=== PATIENT | male | born 1985 | race Caucasian/White ===

== ENCOUNTER 2017-02-22 12:55 | Emergency (ER) | payer SELFPAY ==
[2017-02-22 13:41] VITALS: BP 160/82
[2017-02-22] MEDS ORDERED: Ibuprofen TAB* 600 MG PO ONE (14:08)
--- NOTE | 2017-02-22 14:15 | UC ---
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 c/ o numbness in the toes. - History of Current Complaint Chief Complaint: UCLowerExtremity Stated Complaint: ANKLE INJURY Time Seen by Provider: 02/22/17 14:04 Hx Obtained From: Patient Onset/Duration: Sudden Onset, Lasting Hours Severity Initially: Severe Severity Currently: Severe Aggravating Factor(s): Standing, Ambulation Alleviating Factor(s): Nothing Able to Bear Weight: No - Risk Factors Gout Risk Factors: Hypertension, Obesity - Allergies/Home Medications Allergies/Adverse Reactions: Allergies Allergy/AdvReac Type Severity Reaction Status Date / Time Amoxicillin Allergy Mild Rash Verified 01/15/15 09:50 Penicillin V Allergy Mild Rash Verified 01/15/15 09:50 [From Penicillin VK Potassium] PMH/Surg Hx/FS Hx/Imm Hx Previously Healthy: Yes - Surgical History Surgical History: None - Family History Known Family History: Negative: Cardiac Disease, Hypertension - Social History Alcohol Use: Occasionally Substance Use Type: None Smoking Status (MU): Light Every Day Tobacco Smoker Type: Cigarettes Review of Systems Constitutional: Negative Skin: Negative Eyes: Negative ENT: Negative Respiratory: Negative Cardiovascular: Negative Gastrointestinal: Negative Genitourinary: Negative Motor: Negative Neurovascular: Negative Musculoskeletal: Arthralgia, Decreased ROM, Edema, Myalgia Neurological: Negative Psychological: Negative All Other Systems Reviewed And Are Negative: Yes Physical Exam Triage Information Reviewed: Yes Appearance: Ill-Appearing, Pain Distress, Obese Vital Signs: Initial Vital Signs Temp 97.8 F 02/22/17 13:36 Pulse 90 02/22/17 13:36 Resp 17 02/22/17 13:36 BP 160/82 02/22/17 13:36 Pulse Ox 100 02/22/17 13:36 Vital Signs Reviewed: Yes Eye Exam: Normal ENT Exam: Normal Dental Exam: Normal Neck exam: Normal Respiratory Exam: Normal Cardiovascular Exam: Normal Abdominal Exam: Normal Bowel Sounds: Positive: Present Musculoskeletal: Positive: Strength Limited @ - unable to bear weight, ROM Limited @ - in all directions, Edema @ - over the lateral and anterior aspect of the right foot Neurological Exam: Normal Psychological Exam: Normal Lower Extremity Course/Dx - Course Course Of Treatment: hx obtained, exam performed, meds reviewed, xray obtained, ibuprofen given. kyung, gel splint and crutches supplied, edcuated on RICe and referral to ortho given for follow up as needed. - Differential Dx/Diagnosis Differential Diagnosis/HQI/PQRI: Dislocation, Fracture (Closed), Sprain, Strain Provider Diagnoses: right lateral ankle sprain Discharge - Discharge Plan Condition: Stable Disposition: HOME Patient Education Materials: Ankle Sprain (ED) Additional Instructions: 1. rest, compress and elevate the leg, continue with Ibuprofen and use the crutches to work back into weight bearing. 2. I am giving a referral to merchandising specialist if you are not improving throughout the week, follow up with the specialist
--- NOTE | 2017-02-22 14:30 | RAD ---
HISTORY: Right ankle injury COMPARISONS: None VIEWS: 3, Frontal, lateral, and oblique views of the right ankle FINDINGS: BONE DENSITY: Normal. BONES: There is no displaced fracture. There is a calcaneal enthesophyte. JOINTS: There is no arthropathy. ALIGNMENT: There is no dislocation. SOFT TISSUES: There is circumferential soft tissue swelling OTHER FINDINGS: None. IMPRESSION: SOFT TISSUE SWELLING. NO ACUTE OSSEOUS INJURY. IF SYMPTOMS PERSIST, RECOMMEND REPEAT IMAGING.
== END 2017-02-22 15:13 | disposition home or self-care (01) ==
LOC: UCEAST 12:55
DX: S93.401A Sprain of unspecified ligament of right ankle, initial encounter (principal); V78.4XXA Person boarding or alighting from bus injured in noncollision transport accident, initial encounter; Y92.410 Unspecified street and highway as the place of occurrence of the external cause; Y99.9 Unspecified external cause status; Z72.0 Tobacco use; E66.9 Obesity, unspecified; I10 Essential (primary) hypertension
CPT/HCPCS: 99213; A9270-GY; G0463

== ENCOUNTER 2017-04-13 16:47 | Emergency (ER) | payer SELFPAY ==
[2017-04-13 16:57] VITALS: BP 157/95
--- NOTE | 2017-04-13 17:15 | UC ---
Lower Extremity/Ankle HPI - HPI Summary HPI Summary: PT presents to the ED with persistent left ankle pain. Pt states pain started 02/22 when he had an rolled inversion injury at work. Pt states was treated at , neg xray, given kyung, gel splint and crutches. Pt states after 5-6 days pain improved. Pt states over past 4 week pain and swelling has increased. Pt states pain is primarily on lateral aspect, some medial. No calf, knee or foot pain. Pt has taken APAP with little improvement. Pt intermittently uses kyung wrap but not crutches or gel splint. no re-injury. Pt has not seen anyone in follow-up. Pt here because of continues pain and swelling Pt's medication reviewed this visit - History of Current Complaint Chief Complaint: UCLowerExtremity Stated Complaint: ANKLE INJURY Time Seen by Provider: 04/13/17 16:54 Hx Obtained From: Patient Onset/Duration: Gradual Onset Severity Initially: Moderate Severity Currently: Mild Pain Intensity: 4 Aggravating Factor(s): Standing, Ambulation Alleviating Factor(s): Rest Able to Bear Weight: Yes Related History: Occupational Injury - Allergies/Home Medications Allergies/Adverse Reactions: Allergies Allergy/AdvReac Type Severity Reaction Status Date / Time Amoxicillin Allergy Mild Rash Verified 04/13/17 16:51 Penicillin V Allergy Mild Rash Verified 04/13/17 16:51 [From Penicillin VK Potassium] Home Medications: Home Medications Acetaminophen [Tylenol] 1,250 mg PO 04/13/17 [History] PMH/Surg Hx/FS Hx/Imm Hx Previously Healthy: Yes - Surgical History Surgical History: None - Family History Known Family History: Positive: Diabetes Negative: Cardiac Disease, Hypertension - Social History Occupation: Employed Full-time Lives: With Family Alcohol Use: Occasionally Substance Use Type: None Smoking Status (MU): Light Every Day Tobacco Smoker Type: Cigarettes Review of Systems Constitutional: Negative Skin: Negative Eyes: Negative ENT: Negative Respiratory: Negative Cardiovascular: Negative Gastrointestinal: Negative Genitourinary: Negative Motor: Other - right ankle pain and swelling Neurovascular: Negative Musculoskeletal: Edema Neurological: Negative Psychological: Negative All Other Systems Reviewed And Are Negative: Yes Physical Exam Triage Information Reviewed: Yes Appearance: Well-Appearing, No Pain Distress, Well-Nourished Vital Signs: Initial Vital Signs Temp 99.3 F 04/13/17 16:51 Pulse 83 04/13/17 16:51 Resp 16 04/13/17 16:51 BP 157/95 04/13/17 16:51 Pulse Ox 98 04/13/17 16:51 Vital Signs Reviewed: Yes Eye Exam: Normal ENT: Positive: Hearing grossly normal Neck exam: Normal Neck: Positive: Supple, Nontender, No Lymphadenopathy Respiratory: Positive: Normal breath sounds, No respiratory distress, No accessory muscle use Cardiovascular: Positive: Brisk Capillary Refill, Other: - 2+ PT, DP CBt < 2 sec Musculoskeletal: Positive: Other: - + flex/ext knee + flex/ext ankle + inversion with discomfort along lateral malleolus minimal discofomfort medial malleolus Neurological: Positive: Other: - + gross sensation throughout ankle Psychological Exam: Normal Skin Exam: Normal - no ecchymosis Diagnostics - Radiology No standard instances Xray Interpretation: Positive (See Comments) - Patient Name: CARLOS ZHANG Medical Record#: [id number] 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 3 views of the right ankle demonstrate soft tissue swelling laterally. Ankle mortise is intact. No fracture is noted. IMPRESSION: Soft tissue swelling laterally without evidence of fracture. <Electronically signed by Isha Singh MD in OV> 04/13/17 1726 Radiology Interpretation Completed By: Radiologist Lower Extremity Course/Dx - Course Course Of Treatment: Pt with persistent pain in ankle following inversion injury 02/22 at work. Pt with mild edema and TTP lateral malleoulus. will image. if neg. kyung, air splint. ice. elevate. motrin/apap. Pt has crutches but declining use. ortho referral. Pt and spouse comfortable and in agreement with plan. Pt's BP noted to be elevated at today's visit - advised f/ u with PCP - Differential Dx/Diagnosis Provider Diagnoses: right ankle sprain Discharge - Discharge Plan Condition: Stable Disposition: HOME Patient Education Materials: Ankle Sprain (ED) Forms: *Work Release Referrals: Barb Banuelos MD [Primary Care Provider] - Ayo Munoz MD [Medical Doctor] - Additional Instructions: - Wear kyung wrap, air splint for comfort and support - use crutches as much as possible - Okay to alternate ibuprofen (advil, motrin) and tylenol every 3hours for pain. Do NOT take for more than 4-5 days - Contact the orthopedic provider to schedule a follow-up appointment - Apply ice (wrapped in a towel) 20 minutes at a time, 2-3 times a casimiro - elevate your leg to help with swelling and pain
--- NOTE | 2017-04-13 17:29 | RAD ---
Indication: Right ankle pain. 3 views of the right ankle demonstrate soft tissue swelling laterally. Ankle mortise is intact. No fracture is noted. IMPRESSION: Soft tissue swelling laterally without evidence of fracture.
== END 2017-04-13 17:45 | disposition home or self-care (01) ==
LOC: UCEAST 16:47
DX: X58.XXXA Exposure to other specified factors, initial encounter (principal); S93.401A Sprain of unspecified ligament of right ankle, initial encounter; Z88.3 Allergy status to other anti-infective agents; Z88.0 Allergy status to penicillin; F17.210 Nicotine dependence, cigarettes, uncomplicated
CPT/HCPCS: 99213; G0463

== ENCOUNTER 2017-07-16 12:05 | Emergency (ER) | payer OTHER ==
[2017-07-16 13:12] VITALS: BP 140/80
--- NOTE | 2017-07-16 13:44 | UC ---
Back Pain HPI - HPI Summary HPI Summary: mid back pain after coughing alot patient feels like back is in spasm---pain is waxing and waning and makes his back feel stiff and limitis ROM at it worse - History of Current Complaint Chief Complaint: UCBackPain Stated Complaint: MID BACK PAIN Time Seen by Provider: 07/16/17 13:37 Hx Obtained From: Patient Onset/Duration: Sudden Onset, Lasting Days - 2, Still Present Timing: Constant Severity Initially: Moderate Severity Currently: Moderate Pain Intensity: 8 Pain Scale Used: 0-10 Numeric Back Pain: Is Discrete @ - thoracolumbar region bilaterally Character: Spasmodic, Stiffness Aggravating Factor(s): Movement, Cough Alleviating Factor(s): Other - no much relief with heat or nsaids Associated Signs And Symptoms: Positive: Negative - Allergies/Home Medications Allergies/Adverse Reactions: Allergies Allergy/AdvReac Type Severity Reaction Status Date / Time Amoxicillin Allergy Mild Rash Verified 07/16/17 12:09 Penicillin V Allergy Mild Rash Verified 07/16/17 12:09 [From Penicillin VK Potassium] PMH/Surg Hx/FS Hx/Imm Hx Previously Healthy: Yes - Surgical History Surgical History: None - Family History Known Family History: Positive: Diabetes Negative: Cardiac Disease, Hypertension - Social History Occupation: Employed Full-time Lives: With Family Alcohol Use: Occasionally Substance Use Type: None Smoking Status (MU): Light Every Day Tobacco Smoker Type: Cigarettes Review of Systems Constitutional: Negative Skin: Negative Eyes: Negative ENT: Negative Respiratory: Negative Cardiovascular: Negative Gastrointestinal: Negative Genitourinary: Negative Motor: Negative - spine, Decreased ROM Neurovascular: Negative Musculoskeletal: Arthralgia - midback, Myalgia - bilateral mid back Neurological: Negative Psychological: Negative Is Patient Immunocompromised?: No All Other Systems Reviewed And Are Negative: Yes Physical Exam Triage Information Reviewed: Yes Appearance: Well-Appearing, No Pain Distress, Well-Nourished Vital Signs: Initial Vital Signs Temp 98 F 07/16/17 12:10 Pulse 78 07/16/17 12:10 Resp 20 07/16/17 12:10 Pulse Ox 100 07/16/17 12:10 Vital Signs Reviewed: Yes Eye Exam: Normal Eyes: Positive: Conjunctiva Clear ENT Exam: Normal ENT: Positive: Normal ENT inspection, Hearing grossly normal, Pharynx normal, TMs normal. Negative: Nasal congestion, Muffled voice, Hoarse voice, Sinus tenderness Dental Exam: Normal Neck exam: Normal Neck: Positive: Supple, Nontender Respiratory Exam: Normal Respiratory: Positive: Chest non-tender, Lungs clear, Normal breath sounds, No respiratory distress, No accessory muscle use Cardiovascular Exam: Normal Cardiovascular: Positive: RRR, No Murmur, Pulses Normal, Brisk Capillary Refill Abdomen Description: Negative: CVA Tenderness (R), CVA Tenderness (L) Bowel Sounds: Positive: Present Musculoskeletal Exam: Normal Musculoskeletal: Positive: Strength Intact, ROM Intact, No Edema Neurological Exam: Normal Neurological: Positive: Alert, Muscle Tone Normal Psychological Exam: Normal Skin Exam: Normal Back Pain Course/Dx - Course Course Of Treatment: Flexeril, ibuprofen, nas exercise, follow with pcp - Differential Dx/Diagnosis Provider Diagnoses: Acute lumbar spasm, elevated blood pressure with out dx of hypertension Discharge - Discharge Plan Condition: Stable Disposition: HOME Prescriptions: Cyclobenzaprine TAB* [Flexeril 10 MG TAB*] 10 mg PO TID PRN #15 tab PRN Reason: muscle spasm Ibuprofen TAB* [Motrin TAB* 800 MG] 800 mg PO TID PRN #30 tab PRN Reason: Pain Patient Education Materials: Low Back Strain (ED), Hypertension (ED), Muscle Spasm (ED), Core Strengthening Exercises (GEN), Lower Back Exercises (ED) Referrals: Barb Banuelos MD [Primary Care Provider] - 1 Week
== END 2017-07-16 13:56 | disposition home or self-care (01) ==
LOC: UCEAST 12:05
DX: M62.830 Muscle spasm of back (principal); R03.0 Elevated blood-pressure reading, without diagnosis of hypertension; Z72.0 Tobacco use
CPT/HCPCS: 99212; G0463

== ENCOUNTER 2017-12-08 11:54 | Emergency (ER) | payer OTHER ==
[2017-12-08 13:49] VITALS: BP 150/99
--- NOTE | 2017-12-08 13:54 | UC ---
Skin Complaint HPI - HPI Summary HPI Summary: Pt presents with redness and "pimple" to right inner thigh. He tells me that it started about 4 days ago and looked like a pimple. Over the next 2 days it became larger and more painful. He poked it with a "sharp metal stick" at home and drained it. Here today because it looks infected. Denies fever or chills. - History of Current Complaint Chief Complaint: UCSkin Time Seen by Provider: 12/08/17 13:54 Stated Complaint: SKIN ISSUE Hx Obtained From: Patient Skin Exposure Onset/Duration: Days Ago Timing: Constant Onset Severity: Severe Current Severity: Moderate Pain Intensity: 5 Pain Scale Used: 0-10 Numeric - Allergy/Home Medications Allergies/Adverse Reactions: Allergies Allergy/AdvReac Type Severity Reaction Status Date / Time amoxicillin Allergy Rash Verified 12/08/17 13:42 Penicillins Allergy Rash Verified 12/08/17 13:42 Review of Systems Constitutional: Negative Skin: Other - Wound right inner thigh Respiratory: Negative Cardiovascular: Negative Gastrointestinal: Negative Neurovascular: Negative Musculoskeletal: Negative Neurological: Negative Psychological: Negative All Other Systems Reviewed And Are Negative: Yes PMH/Surg Hx/FS Hx/Imm Hx - Additional Past Medical History Additional PMH: None Previously Healthy: Yes - Surgical History Surgical History: None - Family History Known Family History: Positive: Diabetes Negative: Cardiac Disease, Hypertension - Social History Occupation: Employed Full-time Lives: With Family Alcohol Use: Occasionally Substance Use Type: None Smoking Status (MU): Light Every Day Tobacco Smoker Type: Cigarettes Amount Used/How Often: 10-12 cig/ days Physical Exam - Summary Physical Exam Summary: GENERAL: NAD. WDWN. No pain distress. SKIN: 2.0cm diameter open sore of right inner thigh. No current drainage. Mild surrounding erythema and induration. No streaking or warmth. NECK: Supple. Nontender. No lymphadenopathy. CHEST: CTAB. No r/r/w. No accessory muscle use. Breathing comfortably and in no distress. CV: RRR. Without m/r/g. Pulses intact. Brisk cap refill. NEURO: Alert. CN II-XII grossly intact. PSYCH: Age appropriate behavior. Triage Information Reviewed: Yes Vital Signs: Initial Vital Signs Temp 98.1 F 12/08/17 13:42 Pulse 85 12/08/17 13:42 Resp 16 12/08/17 13:42 BP 150/99 12/08/17 13:42 Pulse Ox 99 12/08/17 13:42 Course/Dx - Course Course Of Treatment: Abscess right inner thigh. Pt I&D'd this himself at home. Thinks last tdap was within the last 5 years. Will dress with telfa and tegaderm and place him on Bactrim. - Diagnoses Provider Diagnoses: skin abscess right inner thigh Discharge - Sign-Out/Discharge Documenting (check all that apply): Discharge/Admit/Transfer - Discharge Plan Condition: Stable Disposition: HOME Prescriptions: HYDROcodone/ACETAMIN 5-325 MG* [[place] 5-325 TAB*] 1 tab PO Q8H PRN #10 tab MDD 3 PRN Reason: Pain Sulfamethox/Trimethoprim DS* [Bactrim DS 800/160 TAB*] 1 tab PO BID #14 tab Patient Education Materials: Abscess (ED) Forms: *Work Release Referrals: Barb Banuelos MD [Primary Care Provider] - Additional Instructions: If you develop a fever, shortness of breath, chest pain, new or worsening symptoms - please call your PCP or go to the ED. Your blood pressure was high at todays visit. Please see your primary provider within 4 weeks for recheck and re-evaluation. 1) Keep the dressing clean, dry, and intact during the day for the next 2-3 days until heals further. May wash with soap and water during showers/baths. - Billing Disposition and Condition Condition: STABLE Disposition: HOME
== END 2017-12-08 14:24 | disposition home or self-care (01) ==
LOC: UCEAST 11:54
DX: L02.415 Cutaneous abscess of right lower limb (principal); F17.210 Nicotine dependence, cigarettes, uncomplicated; Z88.3 Allergy status to other anti-infective agents; Z88.0 Allergy status to penicillin
CPT/HCPCS: 99212; G0463

== ENCOUNTER 2018-06-01 10:39 | Emergency (ER) | payer OTHER ==
[2018-06-01 11:41] VITALS: BP 152/112
--- NOTE | 2018-06-01 12:05 | UC ---
Respiratory Complaint HPI - HPI Summary HPI Summary: 1 WEEK OF COUGH, CONGESTION, FATIGUE AND BODY ACHES. NO FEVER, N/V/D. FEELS HE IS GETTING WORSE. - History of Current Complaint Chief Complaint: UCGeneralIllness Stated Complaint: REST COMPLAINT Time Seen by Provider: 06/01/18 11:25 Hx Obtained From: Patient Onset/Duration: Gradual Onset, Lasting Days, Still Present Timing: Constant Severity Initially: Moderate Severity Currently: Moderate Pain Intensity: 3 Pain Scale Used: 0-10 Numeric Character: Cough: Nonproductive Aggravating Factors: Nothing Alleviating Factors: Nothing Associated Signs And Symptoms: Positive: URI, Nasal Congestion. Negative: Dyspnea, Fever, Wheezing - Allergies/Home Medications Allergies/Adverse Reactions: Allergies Allergy/AdvReac Type Severity Reaction Status Date / Time amoxicillin Allergy Rash Verified 06/01/18 10:53 Penicillins Allergy Rash Verified 06/01/18 10:53 Home Medications: Home Medications Dm/Pseudoephed/Acetaminophen [Day-Time Cold-Flu Softgel] 1 tab PO DAILY PRN [History Confirmed 06/01/18] Lisinopril 5 mg PO DAILY 06/01/18 [History Confirmed 06/01/18] Metformin ER (NF) 500 mg PO DAILY 06/01/18 [History Confirmed 06/01/18] glipiZIDE [Glipizide] 5 mg PO DAILY 06/01/18 [History Confirmed 06/01/18] PMH/Surg Hx/FS Hx/Imm Hx Endocrine History: Diabetes Cardiovascular History: Hypertension - Surgical History Surgical History: None - Family History Known Family History: Positive: Diabetes Negative: Cardiac Disease, Hypertension - Social History Alcohol Use: Occasionally Substance Use Type: None Smoking Status (MU): Light Every Day Tobacco Smoker Type: Cigarettes Amount Used/How Often: 10-12 cig/ days Review of Systems Constitutional: Fatigue ENT: Sore Throat, Nasal Discharge Respiratory: Cough Cardiovascular: Negative Gastrointestinal: Negative Musculoskeletal: Myalgia All Other Systems Reviewed And Are Negative: Yes Physical Exam Triage Information Reviewed: Yes Appearance: No Pain Distress, Well-Nourished, Ill-Appearing - MILD, Obese Vital Signs: Initial Vital Signs Temp 98.8 F 06/01/18 10:56 Pulse 91 06/01/18 10:56 Resp 24 06/01/18 10:56 BP 168/114 06/01/18 10:56 Pulse Ox 96 10/16/18 10:56 Vital Signs Reviewed: Yes Eyes: Positive: Conjunctiva Clear ENT: Positive: Hearing grossly normal, Pharynx normal, TMs normal Neck: Positive: Supple, Nontender, No Lymphadenopathy Respiratory Exam: Normal Cardiovascular Exam: Normal Abdomen Description: Positive: Soft Musculoskeletal: Positive: No Edema Neurological: Positive: Alert Psychological: Positive: Age Appropriate Behavior Skin: Negative: rashes UC Diagnostic Evaluation - Laboratory O2 Sat by Pulse Oximetry: 96 Respiratory Course/Dx - Differential Dx/Diagnosis Provider Diagnoses: ACUTE BRONCHITIS Discharge - Sign-Out/Discharge Documenting (check all that apply): Patient Departure All imaging exams completed and their final reports reviewed: No Studies - Discharge Plan Condition: Stable Disposition: HOME Prescriptions: Doxycycline Monohydrate 1 cap PO BID #20 cap Patient Education Materials: Acute Bronchitis (ED) Forms: *Work Release Referrals: Barb Banuelos MD [Primary Care Provider] - 1 Week Additional Instructions: YOUR SYMPTOMS MAY BE VIRALLY MEDIATED BUT GIVEN THE LENGTH OF TIME YOU HAVE BEEN ILL WE WILL COVER YOU WITH ANTIBIOTICS. IF YOU START THE MEDICINE BE SURE TO TAKE IT FOR THE FULL COURSE. REST, HYDRATE, OTC MEDS NEEDED. SEEK FOLLOW- UP WITH YOUR PCP IF YOU ARE NOT IMPROVING OVER THE NEXT 1-2 WEEKS. YOUR BLOOD PRESSURE WAS ELEVATED TODAY (152/112). THIS MAY BE DUE TO YOUR ACUTE CONDITION IN ADDITION TO THE FACT THAT YOU HAVE NOT TAKEN YOUR MEDS YET. MONITOR AND FOLLOW-UP WITH YOUR PCP WITHIN 4 WEEKS IF IT HAS NOT RETURNED TO NORMAL. GO TO ED WITHOUT FAIL IF YOU DEVELOP WORSENING SHORTNESS OF BREATH, CHEST PAIN, NAUSEA, SWEATS, DIZZINESS OR ANY OTHER CONCERNING SYMPTOMS. - Billing Disposition and Condition Condition: STABLE Disposition: Home
== END 2018-06-01 12:05 | disposition home or self-care (01) ==
LOC: UCEAST 10:39
DX: J20.9 Acute bronchitis, unspecified (principal); Z88.0 Allergy status to penicillin; E11.9 Type 2 diabetes mellitus without complications; Z79.84 Long term (current) use of oral hypoglycemic drugs; I10 Essential (primary) hypertension; F17.210 Nicotine dependence, cigarettes, uncomplicated
CPT/HCPCS: 99212; G0463

== ENCOUNTER 2018-06-12 21:56 | Emergency (ER) | payer OTHER ==
[2018-06-12] MEDS ORDERED: oxyCODONE TAB* 5 MG TAB PO ONE ×2 (23:26→23:28)
[2018-06-13] MEDS ORDERED: Clindamycin CAP* 150 MG PO ONE (00:05)
--- NOTE | 2018-06-13 00:10 | ED ---
Throat Pain/Nasal Congestion - HPI Summary HPI Summary: Patient complains of left upper dental pain 2 days.. History of dental caries. Has been unable to arrange appointment with dentist. Patient states he also took 500 mg Tylenol 20 in the past day, 200 mg ibuprofen 10 as well as 800 mg ibuprofen 1 in the past day. Denies fever, cough, sore throat, CP, SOB, N/V/D, abdominal pain, change in urine, change in BM. Medical history is hypertension, DM. - History of Current Complaint Chief Complaint: EDDentalPain Time Seen by Provider: 06/12/18 22:30 Hx Obtained From: Patient Onset/Duration: Sudden Onset Severity: Severe Associated Signs And Symptoms: Positive: Negative Cough: None - Allergies/Home Medications Allergies/Adverse Reactions: Allergies Allergy/AdvReac Type Severity Reaction Status Date / Time amoxicillin Allergy Rash Verified 06/13/18 00:01 Penicillins Allergy Rash Verified 06/13/18 00:01 PMH/Surg Hx/FS Hx/Imm Hx Endocrine/Hematology History: Reports: Hx Diabetes Denies: Hx Thyroid Disease Cardiovascular History: Reports: Hx Hypertension Denies: Hx Pacemaker/ICD Respiratory History: Denies: Hx Asthma, Hx Chronic Obstructive Pulmonary Disease (COPD) GI History: Denies: Hx Ulcer History: Denies: Hx Renal Disease Sensory History: Denies: Hx Hearing Aid Neurological History: Reports: Hx Headaches Psychiatric History: Denies: Hx Panic Disorder - Immunization History Date of Tetanus Vaccine: utd Date of Influenza Vaccine: fall 2016 Infectious Disease History: No Infectious Disease History: Denies: Hx Clostridium Difficile, Hx Hepatitis, Hx Human Immunodeficiency Virus (HIV), Hx of Known/Suspected MRSA, Hx Shingles, Hx Tuberculosis, Hx Known/ Suspected VRE, Hx Known/Suspected VRSA, History Other Infectious Disease, Traveled Outside the [place] in Last 30 Days - Family History Known Family History: Positive: Diabetes Negative: Cardiac Disease, Hypertension - Social History Alcohol Use: Occasionally Substance Use Type: Reports: None Smoking Status (MU): Light Every Day Tobacco Smoker Type: Cigarettes Amount Used/How Often: 10-12 cig/ days Review of Systems Constitutional: Negative Eyes: Negative Positive: Dental Pain Cardiovascular: Negative Respiratory: Negative Gastrointestinal: Negative Genitourinary: Negative Musculoskeletal: Negative Skin: Negative Neurological: Negative Psychological: Normal All Other Systems Reviewed And Are Negative: Yes Physical Exam - Summary Physical Exam Summary: No apical abscess or signs of infection, lesions noted in mouth. Multiple dental caries. Triage Information Reviewed: Yes Vital Signs On Initial Exam: Initial Vitals Temp Pulse Resp BP Pulse Ox 98.6 F 97 22 205/117 99 06/12/18 21:59 06/12/18 21:59 06/12/18 21:59 06/12/18 21:59 06/12/18 21:59 Vital Signs Reviewed: Yes Appearance: Positive: Well-Appearing Skin: Positive: Warm Head/Face: Positive: Normal Head/Face Inspection Eyes: Positive: Normal ENT: Positive: Normal ENT inspection Neck: Positive: Supple Respiratory/Lung Sounds: Positive: Clear to Auscultation Cardiovascular: Positive: Normal Abdomen Description: Positive: Nontender Musculoskeletal: Positive: Normal Neurological: Positive: Normal Psychiatric: Positive: Normal AVPU Assessment: Alert - Winfred Coma Scale Best Eye Response: 4 - Spontaneous Best Motor Response: 6 - Obeys Commands Best Verbal Response: 5 - Oriented Coma Scale Total: 15 Diagnostics - Vital Signs Vital Signs Temp Pulse Resp BP Pulse Ox 06/12/18 23:53 85 211/115 06/12/18 23:29 77 96 06/12/18 21:59 98.6 F 97 22 205/117 99 - Laboratory Lab Results: Lab Results 06/12/18 Range/Units 23:17 Acetaminophen < 15 mcg/mL Lab Statement: Any lab studies that have been ordered have been reviewed, and results considered in the medical decision making process. EENT Course/Dx - Course Course Of Treatment: Patient complains of left upper dental pain 2 days.. History of dental caries. Has been unable to arrange appointment with dentist. Patient states he also took 500 mg Tylenol 20 in the past day, 200 mg ibuprofen 10 as well as 800 mg ibuprofen 1 in the past day. Denies fever, cough, sore throat, CP, SOB, N/V/D, abdominal pain, change in urine, change in BM. Medical history is hypertension, DM. Physical exam:No apical abscess or signs of infection, lesions noted in mouth. Multiple dental caries. Intermittently elevated BP with high of 211/115. Asymptomatic other than dental pain. Patient states compliant with hypertension meds. Takes lisinopril 5 mg daily. Advised patient to follow-up with primary care regarding hypertension management. Rx for hydrocodone and clindamycin. Follow- up with dentist - Diagnoses Provider Diagnoses: Pain, dental Discharge - Sign-Out/Discharge Documenting (check all that apply): Patient Departure - Discharge Plan Condition: Stable Disposition: HOME Prescriptions: Clindamycin HCl 450 mg PO TID 7 Days #21 capsule HYDROcodone/ACETAMIN 5-325 MG* [Bureau 5-325 TAB*] 1 tab PO Q6H PRN 2 Days #10 tab MDD 4 tabs PRN Reason: Pain Patient Education Materials: Toothache (ED) Referrals: Barb Banuelos MD [Primary Care Provider] - Additional Instructions: Follow-up with your dentist [facility]. Follow-up with your primary care doctor for elevated blood pressure. Return to the ED for any new or worsening symptoms - Billing Disposition and Condition Condition: STABLE Disposition: Home
[2018-06-13 01:12] VITALS: BP 185/115
== END 2018-06-13 01:12 | disposition home or self-care (01) ==
LOC: ED 21:56
DX: K08.89 Other specified disorders of teeth and supporting structures (principal); Z88.0 Allergy status to penicillin; F17.210 Nicotine dependence, cigarettes, uncomplicated
CPT/HCPCS: 36415; 80329; 99282; A9270-GY; G0480

== ENCOUNTER 2018-12-13 12:51 | Emergency (ER) | payer OTHER ==
--- OUTSIDE RECORDS SUMMARY | 2018-12-13 13:23 | XMS REPORT | Continuity of Care Document ---
:1985 External Reference #:[id number] Author Name Tiny Marquez Care Team Providers Name Role Phone Barb Banuelos MD Primary Care Physician Unavailable Payers Date Identification Numbers Payment Provider Subscriber Policy Number: [id number] [employer] Medicaid Dixon Del Angel PayID: [id number] [address] [address] [place] [address] Effective: 2014 Policy Number: [employer] Dixon Del Angel [id number] Expires: 2016 PayID: [id number] [address] [address] [place] [address] Expires: 2014 Policy Number: [id number] Medicaid Dixon Del Angel Group Name: 1 1 [address] PayID: [id number] [place] [address] Effective: 2012 Policy Number: [employer] Dixon Del Angel [id number] Expires: 2013 PayID: [id number] [address] [address] [place] [address] Advance Directives Description No Information Available Problems Date Description Provider Status Onset: 03/16/2012 Morbid obesity Barb Banuelos M.D. Active Onset: 12/15/2013 Tobacco user Barb Banuelos M.D. Active Onset: 12/15/2017 Type 2 diabetes mellitus Renato Mccray M.D. Active Onset: 01/05/2018 Essential hypertension Barb Banuelos M.D. Active Onset: Sleep apnea Active Onset: 03/16/2012 Elevated blood-pressure reading Barb Banuelos M.D. 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 [employer] Tobacco Use Start: Unknown currently smokes 1/2 Pack Daily Smoking Status Reviewed: 11/22/18 currently smokes 1/2 Pack Daily ETOH Use consumes 5 beers per week Recreational Drug Use ritalin, oxycodone, Quit 2004 hydrocodone, ephedra with speed Tobacco Use Start: Unknown Patient is a current 15 cigarettes per day smoker, smokes every day Exercise Type/Frequency Exercises sporadically once a week Allergies, Adverse Reactions, Alerts Date Description Reaction Status Severity Comments 03/16/2012 Amoxicillin Anaphylaxis Active 03/16/2012 Penicillin Anaphylaxis Active Medications Medication Date Status Form Strength Qnty SIG Indications Ordering Provider Metformin HCL 11/22/ Active Tablets 500mg 360ta 2 by mouth E11. Nikolay Ackerman 2019 bs twice a flor Minor M.D. Ozempic 11/22/ Active Solution 0.25or 0.5 1.500 0.5 mg E11. Nikolay Ackerman 2019 Pen-Inject mg/Dose ml weekly Yamileth Minor Freestyle Lite 11/22/ Active Strips 100un test once E11. Nikolay Ackerman Test 2019 its a day or annie Minor M.D. directed Lisinopril 04/26/ Active Tablets 10mg 90tab 1 by mouth I10 Barb 2018 s every day Yamileth Banuelos Bupropion HCL 04/26/ Active Tablets ER 150mg 60tab ( Did Not F17.210 Barb ER (Smoking 2017 12HR s Work ) 1 Lakisha, Det) tab daily M.D. x 7 days then 1 tab twice a day Glipizide 12/25/ Active Tablets 5mg 90tab take 2 E11.9 Barb 2018 s tablet Banuelos, daily M.D. Wilber Contour 12/15/ Active Kit w/Device 1unit check E11.9 Renato Next Blood 2017 s sugar Pachikara, Glucose twice M.D. Monitoring daily System before breakfast and 1 hour after dinner Wilber Microlet 12/15/ Active Misc 100un check cs E11.9 [facility] 2018 its twice Pachikara, daily and M.D. as needed Alogliptin-Metf 04/26/ Hx Tablets 12.5-1000m 60tab twice E11.9 Barb ormin HCL 2018 - g s daily Banuelos, 04/26/ M.D. 2018 Alogliptin-Metf 04/26/ Hx Tablets 12.5-1000m 30tab once a day E11.9 Barb ormin HCL 2018 - g s Banuelos, 11/22/ M.D. 2019 Lisinopril 01/05/ Hx Tablets 5mg 90tab 1 by mouth I10 Barb 2017 - s every day Banuelos, M.D. 2017 Metformin HCL 12/25/ Hx Tablets 850mg 60tab 1 by mouth E11.9 Renato 2017 - s daily Pachikara, M.D. 2018 Bactrim 12/15/ Hx Tablets 90tab take 1 [place]2017 - tablet po Pachikara, 01/05/ x 10 days M.D. 2018 Alogliptin-Metf 12/15/ Hx Tablets 12.5-1000m 60tab twice E11.9 Renato ormin HCL 2017 - g s daily [place]ara, M.D. 2018 Wilber Contour 12/15/ Hx Strips 75uni check cs E11.9 [place] Next Blood 2018 - ts twice Pachikara, Glucose Test 11/22/ daily and M.D. 2019 as needed Bupropion HCL 03/21/ Hx Tablets ER 150mg 7tabs 1 by mouth 305.1 Barb ER (XL) 2013 - 24HR every day Banuelos, 12/14/ x 7 days M.D. 2018 then start 300 mg daily Bupropion HCL 03/21/ Hx Tablets ER 300mg 60tab 1 by mouth 305.1 Barb ER (XL) 2013 - 24HR s every day Banuelos, 12/14/ M.D. 2018 No Active 12/15/ Hx Unknown Medications 2013 - 2013 Amlodipine 12/15/ Hx Tablets 5mg 30tab 1 by mouth 401.9 Ivka Besylate 2013 - s every day [place] 12/14/ M.D. 2018 Cephalexin 04/07/ Hx Capsules 500mg 20cap 1 tab by 684 Barb 2011 - mouth Banuelos, 12/15/ twice a M.D. 2013 day Ciprofloxacin 03/16/ Hx Tablets 250mg 14tab 1 tab by 684 Barb HCL 2011 - mouth Banuelos, 03/23/ twice a M.D. 2011 Nystatin 03/16/ Hx Powder 3unit apply to 112.9 Barb Domestic 2011 - affected Banuelos, 12/15/ areas once M.D. 2013 a day Oxycodone-Aceta / Hx Solution 5-325mg/5M for dental Unknown minophen 0000 - L surgery--- 03/11/ take 1 by 2018 mouth every 6 hours as needed for break through pain mdd=4 tabs, note scheduled amount Immunizations CPT Code Status Date Vaccine Lot # [id number] Given 12/15/2013 Tdap - Tetanus/Diptheria/Acellular Pertussis Vital Signs Date Vital Result Comment 11/22/2018 4:41pm Height 71 inches 5'11" Weight 307.00 lb Heart Rate 100 /min BP Systolic 140 mmHg BP Diastolic 80 mmHg Body Temperature 99.0 F O2 % BldC Oximetry 98 % BMI (Body Mass Index) 42.8 kg/m2 04/26/2018 10:12am Height 71 inches 5'11" Weight 309.00 lb Heart Rate 99 /min BP Systolic Sitting 140 mmHg BP Diastolic Sitting 88 mmHg O2 % BldC Oximetry 95 % BMI (Body Mass Index) 43.1 kg/m2 03/12/2018 8:21am Height 71 inches 5'11" Weight 298.25 lb Heart Rate 80 /min BP Systolic Sitting 146 mmHg Lue large cuff BP Diastolic Sitting 82 mmHg Lue large cuff Respiratory Rate 16 /min O2 % BldC Oximetry 96 % On Ra BMI (Body Mass Index) 41.6 kg/m2 Neck Circumference in inches 18.25 01/05/2018 12:13pm Height 71 inches 5'11" Weight 279.00 lb Heart Rate 88 /min BP Systolic Sitting 140 mmHg BP Diastolic Sitting 90 mmHg O2 % BldC Oximetry 97 % BMI (Body Mass Index) 38.9 kg/m2 12/25/2017 9:08am Height 71 inches 5'11" Weight 280.00 lb Heart Rate 97 /min BP Systolic 130 mmHg BP Diastolic 90 mmHg O2 % BldC Oximetry 96 % BMI (Body Mass Index) 39.0 kg/m2 12/15/2017 1:55pm Height 71 inches 5'11" Weight 279.00 lb Heart Rate 95 /min BP Systolic 134 mmHg BP Diastolic 90 mmHg O2 % BldC Oximetry 96 % BMI (Body Mass Index) 38.9 kg/m2 03/21/2014 9:50am Weight 328.00 lb Heart Rate 76 /min BP Systolic Sitting 128 mmHg BP Diastolic Sitting 82 mmHg 12/15/2013 11:27am Height 69.5 inches 5'9.50" Weight 328.50 lb Heart Rate 88 /min BP Systolic Sitting 158 mmHg BP Diastolic Sitting 88 mmHg O2 % BldC Oximetry 98 % BMI (Body Mass Index) 47.8 kg/m2 04/07/2012 9:46am Height 70.25 inches 5'10.25" Weight 315.00 lb Heart Rate 80 /min BP Systolic Sitting 132 mmHg BP Diastolic Sitting 82 mmHg BMI (Body Mass Index) 44.9 kg/m2 03/16/2012 9:14am Height 70.25 inches 5'10.25" Weight 313.00 lb BMI (Body Mass Index) 44.6 kg/m2 Results Test Date Facility Test Result H/L Range Note Laboratory test 11/22/2018 [facility] Hemoglobin A1c 8.3 High 5-7 finding Laboratory test 06/12/2018 [facility] Acetaminophen < 15 g/mL [address] [place] [address] [phone] Laboratory test 04/26/2018 [facility] Hemoglobin A1c 7.1 High 5-7 finding Basic Metabolic 03/12/2018 [facility] Sodium 138 mmol/L N 135- [address] [place] [address] [phone] Potassium 4.4 mmol/L N 3.5-5.0 Chloride 104 mmol/L N 101-111 Co2 Carbon Dioxide 29 mmol/L N 22-32 Anion Gap 5 mmol/L N 2-11 Glucose 81 mg/dL N 70-100 Blood Urea Nitrogen 11 mg/dL N 6-24 Creatinine 0.76 mg/dL N 0.67-1.17 BUN/Creatinine Ratio 14.5 N 8-20 Calcium 9.2 mg/dL N 8.6-10.3 Egfr Non- 118.1 >60 Egfr 142.9 >60 2 Lipid Profile 03/12/2018 [facility] Triglycerides 135 mg/dL 3 (Trig/Chol/HDL) [address] [place] [address] [phone] Cholesterol 155 mg/dL 4 HDL Cholesterol 46.3 mg/dL 5 LDL Cholesterol 82 mg/dL 6 Laboratory test finding 12/15/2017 [facility] Glucose Fingerstick 297 Ua Routine 12/15/2017 [facility] Ua Specific Slater 1.010 Ua PH 5 Ua Color yellow Ua Appera clear Ua WBC neg Ua Protein neg Ua Glucose 500+ Ua Ketones neg Ua Bilirubin neg Ua Urobilinogen neg Ua Nitrite neg Ua Occult Blood neg Urine Microalbumin 12/15/2017 [facility] Ur Microalbumin 30.8 mg /L Random [address] (mg/L) [place] [address] [phone] Urine Creatinine 77.49 mg/dL Urine Microalbumin/Creatinine 39.7 ug/mg High <31 Laboratory test 12/15/2017 [facility] In House Hemoglobin A1c 14.0 High 5-7 finding CBC Auto Diff 01/15/2015 [facility] White Blood Count 8.2 N 4.8-10.[address] 10^3/[place] [address] [phone] Red Blood Count 5.24 10^6/uL N 4.0-5.4 Hemoglobin 15.6 g/dL N 14.0-18.0 Hematocrit 45 % N 42-52 Mean Corpuscular Volume 87 fL N 80-94 Mean Corpuscular Hemoglobin 30 pg N 27-31 Mean Corpuscular HGB Conc 34 g/dL N 31-36 Red Cell Distribution Width 14 % N 10.5-15 Platelet Count 139 10^3/uL Low 150-450 Mean Platelet Volume 11 um3 High 7.4-10.4 Abs Neutrophils 4.2 10^3/uL N 1.5-7.7 Abs Lymphocytes 2.5 10^3/uL N 1.0-4.8 Abs Monocytes 1.0 10^3/uL High 0-0.8 Abs Eosinophils 0.4 10^3/uL N 0-0.6 Abs Basophils 0.1 10^3/uL N 0-0.2 Abs Nucleated RBC 0.02 10^3/uL N Granulocyte % 51.3 % N 38-83 Lymphocyte % 31.1 % N 25-47 Monocyte % 11.7 % High 1-9 Eosinophil % 5.1 % N 0-6 Basophil % 0.8 % N 0-2 Nucleated Red Blood Cells % 0.2 N Laboratory test 01/15/2015 [facility] Lactic Acid 0.9 mmol/L N 0.5-2.[address] [place] [address] [phone] Comp Metabolic 01/15/2015 [facility] Sodium 135 mmol/L N 133- 145 Panel [address] [place] [address] [phone] Potassium 3.9 mmol/L N 3.5-5.0 Chloride 102 mmol/L N 101-111 Co2 Carbon Dioxide 28 mmol/L N 22-32 Anion Gap 5 mmol/L N 2-11 Glucose 113 mg/dL High 70-100 Blood Urea Nitrogen 10 mg/dL N 6-24 Creatinine 0.93 mg/dL N 0.67-1.17 BUN/Creatinine Ratio 10.8 N 8-20 Calcium 9.2 mg/dL N 8.6-10.3 Total Protein 7.5 g/dL N 6.4-8.9 Albumin 4.3 g/dL N 3.2-5.2 Globulin 3.2 g/dL N 2-4 Albumin/Globulin Ratio 1.3 N 1-3 Total Bilirubin 0.50 mg/dL N 0.2-1.0 Alkaline Phosphatase 76 U/L N 34-104 Alt 67 U/L High 7-52 Ast 35 U/L N 13-39 Egfr Non- 95.4 N >60 Egfr 122.7 N >60 7 CBC With Manual Diff 03/02/2014 White Blood Count 9.3 10^3/uL N 4.8- 10.8 Red Blood Count 4.98 10^6/uL N 4.0-5.4 Hemoglobin 14.5 g/dL N 14.0-18.0 Hematocrit 43 % N 42-52 Mean Corpuscular Volume 86 fL N 80-94 Mean Corpuscular Hemoglobin 29 pg N 27-31 Mean Corpuscular HGB Conc 34 g/dL N 31-36 Red Cell Distribution Width 14 % N 10.5-15 Platelet Count 176 10^3/uL N 150-450 Mean Platelet Volume 10 um3 N 7.4-10.4 Abs Neutrophils 5.7 10^3/uL N 1.5-7.7 Abs Lymphocytes 2.4 10^3/uL N 1.0-4.8 Abs Monocytes 0.9 10^3/uL High 0-0.8 Abs Eosinophils 0.3 10^3/uL N 0-0.6 Abs Basophils 0.1 10^3/uL N 0-0.2 Abs Nucleated RBC 0 10^3/uL N Neutrophil % 67 % N 38-83 Lymphocytes % 22 % Low 25-47 Monocytes % 5 % N 0-13 Eosinophils % 1 % N 0-6 Reactive Lymph % 5 % N 0-6 RBC Morphology Normal N Normal Comp Metabolic Panel 03/02/2014 Sodium 137 mmol/L N 133-145 Potassium 4.2 mmol/L N 3.7-5.6 Chloride 104 mmol/L N 101-111 Co2 Carbon Dioxide 27 mmol/L N 22-32 Anion Gap 6 mmol/L N 2-11 Glucose 98 mg/dL N 70-100 Blood Urea Nitrogen 11 mg/dL N 6-24 Creatinine 0.77 mg/dL N 0.67-1.17 BUN/Creatinine Ratio 14.3 N 8-20 Calcium 8.9 mg/dL N 8.6-10.3 Total Protein 6.7 g/dL N 6.4-8.9 Albumin 3.9 g/dL N 3.2-5.2 Globulin 2.8 g/dL N 2-4 Albumin/Globulin Ratio 1.4 N 1-3 Total Bilirubin 0.50 mg/dL N 0.2-1.0 Alkaline Phosphatase 69 U/L N 34-104 Alt 76 U/L High 7-52 Ast 32 U/L N 13-39 Egfr Non- 119.4 N >60 Egfr 153.6 N >60 8 Lipid Profile (Trig/Chol/HDL) 03/02/2014 Triglycerides 164 mg/dL N 9 Cholesterol 128 mg/dL N 10 HDL Cholesterol 35.8 mg/dL N 11 LDL Cholesterol 59 mg/dL N 12 Laboratory test finding 03/02/2014 TSH (Thyroid Stimulating 0.75 IU/mL N 0.34-5.60 Horm) Urinalysis Profile 03/02/2014 Urine Color Yellow N Urine Appearance Clear N Urine Specific Slater 1.015 N 1.010-1.030 Urine pH 5.0 N 5-9 Urine Urobilinogen Negative N Negative Urine Ketones Negative N Negative Urine Protein Negative N Negative Urine Leukocytes Negative N Negative Urine Blood Negative N Negative Urine Nitrite Negative N Negative Urine Bilirubin Negative N Negative Urine Glucose Negative N Negative Urine White Blood Cell Trace N Absent Urine Red Blood Cell Trace N Absent Urine Bacteria Absent N Absent Urine Squamous Epithelial Cell Present Abnormal Absent Freida (Antinuclear 04/07/2012 [facility] Antinuclear AB NEGATIVE Negative Antibodies) [address] [place] [address] [phone] Freida Rev By MD LEONARDO NIELSEN <SEE NOTE> 13 Antinuclear AB NEGATIVE (NEG) Laboratory 04/07/2012 [facility] Hepatitis B Nonreactive Nonreactive test finding [address] [place] [address] [phone] Hepatitis C Antibody Nonreactive Nonreactive Transferrin 289 mg/dL 200 - 360 14 Ceruloplasmin 21.8 mg/dL () 15 Vad 04/05/2012 [facility] Vad Final Nonreactive Nonreactive [address] [place] [address] [phone] Urinalysis 04/05/2012 [facility] Ua Color YELLOW Yellow W/Microscopic [address] [place] [address] [phone] Appearance-Urine CLEAR Clear Specific Slater-Ur 1.019 1.010-1.030 Esterase-Urine NEGATIVE Negative Nitrite NEGATIVE Negative [id number] NEGATIVE Negative Protein-Urine NEGATIVE Negative PH-Urine 5.5 5-9 Blood-Urine NEGATIVE Negative Ketones-Urine NEGATIVE Negative Bilirubin-Ur NEGATIVE Negative Glucose-Urine NEGATIVE Negative WBC-Urine 0-2 0-5 RBC-Urine NONE SEEN 0-2 Epith Cells-Ur RARE None CBC Auto Diff 04/05/2012 [facility] White Blood 8.7 CUMM 4.8- 10.[address] [place] [address] [phone] Red Cell Count 5.11 CUMM 4.6-6.2 Hemoglobin 15.3 g/dL 14.0-18.0 Hematocrit 45 % 42-52 Mean Corpuscular Volume 87 um3 80-94 Mean Corpuscular Hemoglob 30 pg 27-31 Mean Corpuscular HGB Cone 34 g/dL 32-36 Redcell Distribution WDTH 14 % 10.5-15 Platelet Count 173 CUMM 150-450 Mean Platelet Volume 10.6 um3 High 7.4-10.4 Gran % 62.2 % 38-83 Lymph % 25.5 % 20-45 Mononuclear % 8.8 % 1-9 Eosinophil % 2.6 % 0-6 Basophil % 0.9 % 0-2 Abs Lymphs 2.2 1.0-4.8 Abs Mononuclear 0.8 0-0.8 Absolute Neutrophil Count 5.4 1.5-7.7 Abs Eosinophils 0.2 0-0.6 Abs Basophils 0.1 0-0.2 Laboratory test 04/05/2012 [facility] TSH 1.21 0.34-5.60 finding [address] [facility] [address] [address] [phone] Lipid Profile 04/05/2012 [facility] Triglyceride 203 mg/dL High 40-200 (Trig/Chol/HDL) [address] [place] [address] [phone] Cholesterol 152 mg/dL Less Than 200 17 High Density Lipoprotein 42 mg/dL 40-60 18 Cholesterol/HDL Ratio 3.62 AVERAGE 1-4.97 Low Density Lipoprotein 69 mg/dL Less Than 100 19 Comp Metabolic Panel 04/05/2012 [facility] Sodium 138 mmol/L 135-145 [address] [place] [address] [phone] Potassium 4.5 mmol/L 3.5-5.0 Chloride 107 mmol/L 101-111 Co2 (Carbon Dioxide) 26.0 mmol/L 22-32 Anion Gap 5.0 mmol/L 2-11 20 Glucose 106 mg/dL High 70-100 BUN 12 mg/dL 6-24 Creatinine 0.8 mg/dL 0.50-1.40 One Over Creatinine 1.25 BUN/Creatinine Ratio 15.0 8-20 Calcium 9.2 mg/dL 8.1-9.9 Total Protein 6.8 GM/DL 6.2-8.1 Albumin 3.9 GM/DL 3.6-5.4 Globulin 2.9 GM/DL 2-4 Albumin/Globulin Ratio 1.3 1-3 Bilirubin Total 0.7 mg/dL 0.4-1.5 21 Alkaline Phosphatase 70 U/L 39-117 Alt (SGPT) 121 U/L High 17-63 Ast (Sgot) 54 U/L High 12-42 eGFR Non- 115.1 > 60 eGFR 148.0 > 60 22 1 Therapeutic concentration: <50 ug/mL Toxic concentration: >120 ug/mL 2 Because ethnic data is not always readily available, this report includes an eGFR for both -Americans and non- Americans. The National Kidney Disease Education Program (NKDEP) does not endorse the use of the MDRD equation for patients that are not between the ages of 18 and 70, are , have extremes of body size, muscle mass, or nutritional status, or are non- or non-. According to the National Kidney Foundation, irrespective of diagnosis, the stage of the disease is based on the level of kidney function: Stage Description GFR(mL/min/1.73 m(2)) 1 Kidney damage with normal or decreased GFR 90 2 Kidney damage with mild decrease in GFR 60-89 3 Moderate decrease in GFR 30-59 4 Severe decrease in GFR 15-29 5 Kidney failure <15 (or dialysis) 3 Desirable: <150 Borderline High: 150-199 High: 200-499 Very High: >500 4 Desirable: <200 Borderline High: 200-239 High: >239 5 Low: <40 Desirable: 40-60 High: >60 6 Desirable: <100 Near Optimal: 100-129 Borderline High: 130-159 High: 160-189 Very High: >189 7 Because ethnic data is not always readily available, this report includes an eGFR for both -Americans and non- Americans. The National Kidney Disease Education Program (NKDEP) does not endorse the use of the MDRD equation for patients that are not between the ages of 18 and 70, are , have extremes of body size, muscle mass, or nutritional status, or are non- or non-. According to the National Kidney Foundation, irrespective of diagnosis, the stage of the disease is based on the level of kidney function: Stage Description GFR(mL/min/1.73 m(2)) 1 Kidney damage with normal or decreased GFR 90 2 Kidney damage with mild decrease in GFR 60-89 3 Moderate decrease in GFR 30-59 4 Severe decrease in GFR 15-29 5 Kidney failure <15 (or dialysis) 8 Because ethnic data is not always readily available, this report includes an eGFR for both -Americans and non- Americans. The National Kidney Disease Education Program (NKDEP) does not endorse the use of the MDRD equation for patients that are not between the ages of 18 and 70, are , have extremes of body size, muscle mass, or nutritional status, or are non- or non-. According to the National Kidney Foundation, irrespective of diagnosis, the stage of the disease is based on the level of kidney function: Stage Description GFR(mL/min/1.73 m(2)) 1 Kidney damage with normal or decreased GFR 90 2 Kidney damage with mild decrease in GFR 60-89 3 Moderate decrease in GFR 30-59 4 Severe decrease in GFR 15-29 5 Kidney failure <15 (or dialysis) 9 Desirable <150 Borderline high 150-199 High 200-499 Very High >500 10 Desirable <200 Borderline high 200-239 High >239 11 Low <40 Desirable: 40-60 High: >60 12 Desirable <100 Near Optimal 100-129 Borderline high 130-159 High 160-189 Very High >189 13 LEONARDO QUACH 14 Test Performed by: [place] [address] Completions Manager: Eddi Lobo III, M.D. 15 -- REFERENCE VALUE -- 15.0 - 30.0 Test Performed by: [place] [address] Completions Manager: Eddi Lobo III, M.D. 16 It is recognized that currently available assays for the detection of antibodies to HIV-1 and/or HIV-2 may not detect all infected individuals. HIV antibodies may be undetectable in some stages of the infection and in some clinical conditions. The performance of this assay has not been established for populations of infants or children. Assayed by Chemiluminescence Microparticle Immunoassay on the Wilber Advia Centaur CP. Values obtained with different methods or kits cannot be used interchangeably.The diagnostic specificity of the ADVIA Centaur 1/O/2 Enhanced assay in the low risk population was 99.90% (6052/6058) with a 95% confidence interval of 99.78 to 99.96%. 17 CHOLESTEROL INTERPRETATION: Desirable: Less than 200 MG/DL Borderline-High Risk: 200-239 MG/DL High-Risk: 240 MG/DL and over 18 HDL INTERPRETATION: Undesirable: High Risk: Less than 40 MG/DL Desirable: Low Risk: Greater than 60 MG/DL 19 LDL INTERPRETATION: Low Risk Optimal Level: LDL Less than 100 MG/DL Near or Above Optimal: LDL 100-129 MG/DL Borderline High Risk: LDL 130-159 MG/DL High Risk: LDL 160-189 MG/DL Very High Risk: LDL Greater than 189 MG/DL 20 Anion gap measurement may be of limited value in the presence of any alkalosis, especially in a combined acid base disorder. . 21 A metabolite of Naproxen, O-desmethylnaproxen, has been shown to interfere with the [place] method for measuring total bilirubin. Samples from patients who have taken Naproxen have shown spurious elevation in total bilirubin levels. 22 Because ethnic data is not always readily available, this report includes an eGFR for both -Americans and non- Americans. The National Kidney Disease Education Program (NKDEP) does not endorse the use of the MDRD equation for patients that are not between the ages of 18 and 70, are , have extremes of body size, muscle mass, or nutritional status, or are non- or non-. According to the National Kidney Foundation, irrespective of diagnosis, the stage of the disease is based on the level of kidney function: Stage Description GFR(mL/min/1.73 m(2)) 1 Kidney damage with normal or decreased GFR 90 2 Kidney damage with mild decrease in GFR 60-89 3 Moderate decrease in GFR 30-59 4 Severe decrease in GFR 15-29 5 Kidney failure <15 (or dialysis) Procedures Date Code Description Status 06/06/2014 90950 Polysomnography Sleep Staging 4+ Parameters Completed Encounters Type Date Location Provider Dx Diagnosis Office Visit 04/26/2018 [facility] Internal Barb Banuelos, E11.9 Type 2 diabetes 10:10a Medicine - M.D. mellitus without [place] complications F17.210 Nicotine dependence, cigarettes, uncomplicated E66.01 Morbid (severe) obesity due to excess calories X32.xxxA Exposure to sunlight, initial encounter I10 Essential (primary) hypertension Office Visit 03/12/2018 8:30a Pulmonology And Flores G47.33 Obstructive sleep [facility] apnea (adult) [facility] (pediatric) E66.01 Morbid (severe) obesity due to excess calories F17.210 Nicotine dependence, cigarettes, uncomplicated Office Visit 01/05/2018 11:50a [facility] Internal Barb E11.9 Type 2 diabetes Jonn Banuelos M.D. mellitus without [place] complications I10 Essential (primary) hypertension G47.33 Obstructive sleep apnea (adult) (pediatric) F17.210 Nicotine dependence, cigarettes, uncomplicated Office Visit 12/25/2017 [facility] Austin Gross E11.9 Type 2 diabetes 8:20a Jonn Mccray M.D. mellitus without [address] complications Office Visit 12/15/2017 [facility] Austin Gross Z00.01 Encounter for 2:00p Jonn Mccray M.D. general adult [address] medical exam w abnormal findings R03.0 Elevated blood-pressure reading, w/o diagnosis of htn E11.9 Type 2 diabetes mellitus without complications Office Visit 03/21/2014 9:50a Kristina Day 401.1 Hypertension Benign Jonn Banuelos M.D. 305.1 Tobacco Use Disorder 719.46 Pain Joint Lower Leg Office Visit 12/15/2013 11:10a [facility] Internal Barb Banuelos, 305.1 Tobacco Use Medicine Yamileth Disorder V70.0 Examination General Medical Routine AT [facility] Care [facility] 278.01 Obesity Morbid 794.8 Liver Study Abnormal 780.79 Malaise And Fatigue Other 401.9 Hypertension Unspec 719.46 Pain Joint Lower Leg 702.0 Actinic Keratosis Office Visit 04/07/2012 9:50a Kristina Banuelos, 278.01 Obesity Morbid Medicine Yamileth 794.8 Liver Study Abnormal 112.9 Candidiasis Unspec Site 272.1 Hypertriglyceridemia Pure 684 Impetigo 719.41 Pain Joint Shoulder Region 796.2 Blood Pressure Reading Elevated W/O Hypertension Office Visit 03/16/2012 9:00a [facility] Internal Jonn Banuelos M.D. 684 Impetigo 112.9 Candidiasis Unspec Site 278.01 Obesity Morbid 780.79 Malaise And Fatigue Other 796.2 Blood Pressure Reading Elevated W/O Hypertension 719.41 Pain Joint Shoulder Region V77.91 Screening For Lipoid Disorders V77.1 Screening Diabetes Mellitus Plan of Treatment Future Appointment(s):12/22/2018 10:00 am - Nikolay Minor M.D. at [facility] F[facility]hcwp15/08/2019 - Nikolay Minor M.D.E11.9 Type 2 diabetes mellitus without complicationsNew Medication:Metformin HCL 500 mg - 2 by mouth twice a dayOzempic 0.25 or 0.5 mg/Dose - 0.5 mg weeklyFreestyle Lite Test - test once a day or as directedReferral:[facility], NutritionistFollow up:1 month with home sugars or prnI10 Essential (primary) [id number] Obstructive sleep apnea (adult) (pediatric)
--- NOTE | 2018-12-13 13:47 | ED ---
HPI Chest Pain - HPI Summary HPI Summary: Pt is a 33 y/o M presenting to the ED with a chief complaint of chest pain. He states he had finished eating lunch at work, when he started to feel foggy, disoriented, and lightheaded. The chest pain is intermittent in the center of his chest, but radiates to the sides and his back, and came on when someone was talking to him about union things, so he thinks it may have been a stress response. He also notes a splitting headache in his temporal lobes that came on suddenly around 1215, and some diaphoresis and SOB. His pain is worsened with deep breaths. Pt denies any fever, chills, erythema of eyes, sore throat, cough, heart palpitations, abdominal pain, N/V, dysuria, hematuria, myalgia, edema, pruritus , rash, or dizziness. He was recently prescribed insulin but he has not taken it due to not knowing how to use it. - History of Current Complaint Chief Complaint: EDChestPainROMI Time Seen by Provider: 12/13/18 13:11 Hx Obtained From: Patient Onset/Duration: Started Hours Ago, Still Present Timing: Intermittent, Lasting Hours Initial Severity: Moderate Current Severity: Mild Pain Intensity: 1 Pain Scale Used: 0-10 Numeric Chest Pain Location: Mid Sternal Chest Pain Radiates: Yes Chest Pain Radiates To:: Back, Other - sides of chest Aggravating Factor(s): Deep Breaths Alleviating Factor(s): Nothing Associated Signs and Symptoms: Positive: Chest Pain, Headaches, Shortness of Breath, Lightheadedness, Diaphoresis, Back Pain. Negative: Dizziness, Fever, Chills, Nausea, Cough, Abdominal Pain, Vomiting, Edema - Allergy/Home Medications Allergies/Adverse Reactions: Allergies Allergy/AdvReac Type Severity Reaction Status Date / Time amoxicillin AdvReac Rash Verified 12/13/18 12:55 Penicillins AdvReac Rash Verified 12/13/18 12:55 Home Medications: Home Medications Lisinopril TAB* [Prinivil TAB*] 10 mg PO DAILY 12/13/18 [History Confirmed 12/13] Semaglutide [Ozempic] 0.5 ml SUBCUT WEEKLY 12/13/18 [History Confirmed 12/13/18] metFORMIN* [Glucophage 500 MG TAB *] 1,000 mg PO BID 12/13/18 [History Confirmed 12/13/18] PMH/Surg Hx/FS Hx/Imm Hx Previously Healthy: Yes Endocrine/Hematology History: Reports: Hx Diabetes Denies: Hx Thyroid Disease Cardiovascular History: Reports: Hx Hypertension Denies: Hx Pacemaker/ICD Respiratory History: Denies: Hx Asthma, Hx Chronic Obstructive Pulmonary Disease (COPD) GI History: Denies: Hx Ulcer History: Denies: Hx Renal Disease Sensory History: Denies: Hx Hearing Aid Neurological History: Reports: Hx Headaches Psychiatric History: Denies: Hx Panic Disorder - Immunization History Date of Tetanus Vaccine: utd Date of Influenza Vaccine: fall 2016 Infectious Disease History: No Infectious Disease History: Denies: Hx Clostridium Difficile, Hx Hepatitis, Hx Human Immunodeficiency Virus (HIV), Hx of Known/Suspected MRSA, Hx Shingles, Hx Tuberculosis, Hx Known/ Suspected VRE, Hx Known/Suspected VRSA, History Other Infectious Disease, Traveled Outside the [place] in Last 30 Days - Family History Known Family History: Positive: Diabetes Negative: Cardiac Disease, Hypertension - Social History Alcohol Use: Occasionally Hx Substance Use: No Substance Use Type: Reports: None Hx Tobacco Use: Yes Smoking Status (MU): Heavy Every Day Tobacco Smoker Type: Cigarettes Amount Used/How Often: 10-12 cig/ days Review of Systems Positive: Skin Diaphoresis. Negative: Fever, Chills Negative: Erythema Negative: Sore Throat Positive: Chest Pain. Negative: Palpitations Positive: Shortness Of Breath. Negative: Cough Negative: Abdominal Pain, Vomiting, Nausea Negative: dysuria, hematuria Negative: Myalgia, Edema Negative: Rash, Other - pruritus Neurological: Negative - dizziness Positive: Headache All Other Systems Reviewed And Are Negative: Yes Physical Exam - Summary Physical Exam Summary: Constitutional: Well-developed, Well-nourished, Alert. (-) Distressed Skin: Warm, Dry, flushed appearing but pt states this is nml. HENT: Normocephalic; Atraumatic Eyes: Conjunctiva normal Neck: Musculoskeletal ROM normal neck. (-) JVD, (-) Stridor, (-) Tracheal deviation Cardio: Rhythm regular, rate normal, Heart sounds normal; Intact distal pulses; The pedal pulses are 2+ and symmetric. Radial pulses are 2+ and symmetric. (-) Murmur Pulmonary/Chest wall: Effort normal. (-) Respiratory distress, (-) Wheezes, (-) Rales Abd: Soft, (-) tenderness, (-) Distension, (-) Guarding, (-) Rebound Musculoskeletal: (-) Edema Lymph: (-) Cervical adenopathy Neuro: Alert, Oriented x3 Psych: Mood and affect Normal Triage Information Reviewed: Yes Vital Signs On Initial Exam: Initial Vitals Temp Pulse Resp BP Pulse Ox 98.1 F 107 20 150/98 97 12/13/18 12:54 12/13/18 12:54 12/13/18 12:54 12/13/18 12:54 12/13/18 12:54 Vital Signs Reviewed: Yes - Hayden Coma Scale Best Eye Response: 4 - Spontaneous Best Motor Response: 6 - Obeys Commands Best Verbal Response: 5 - Oriented Coma Scale Total: 15 Diagnostics - Vital Signs Vital Signs Temp Pulse Resp BP Pulse Ox 12/13/18 13:27 97 12/13/18 12:54 98.1 F 107 20 150/98 97 - Laboratory Result Diagrams: 12/13/18 13:58 12/13/18 17:03 Lab Statement: Any lab studies that have been ordered have been reviewed, and results considered in the medical decision making process. - Radiology CXR Radiology Interpretation Completed By: Radiologist Summary of Radiographic Findings: No evidence for acute disease. ED physician has reviewed this report. - CT Brain CT CT Interpretation Completed By: Radiologist Summary of CT Findings: Negative unenhanced head CT. ED physician has reviewed this report. - EKG 1330 Cardiac Rate: NL - 85bpm EKG Rhythm: Sinus Rhythm ST Segment: Normal Ectopy: None Summary of EKG Findings: EKG at 1330 shows NSR at 85bpm with no STEMI. Re-Evaluation - Re-Evaluation 1st re-eval Re-Evaluation Time: 18:18 Change: Improved Comment: Discussed results with pt who is feeling better and agreeable with d/c. Chest Pain Course/Dx - Course Course Of Treatment: Pt is a 33 y/o M presenting to the ED with a chief complaint of chest pain onset around 1215 after he had finished eating a sandwich. This was accompanied by feeling foggy, lightheaded, and disoriented, as well as diaphoresis and a splitting headache. The chest pain is in the middle of his chest but does radiate to the sides and to his back. Pt denies any fever, chills, erythema of eyes, sore throat, cough, heart palpitations, abdominal pain, N/V, dysuria, hematuria, myalgia, edema, pruritus, rash, or dizziness. Brain CT shows negative unenhanced head CT. EKG at 1330 shows NSR at 85bpm with no STEMI. Pt's troponin is 0.00, lactic acid is 2.6. CXR shows no evidence for acute disease. The pt's second lactic acid is 1.0, and his second troponin is 0.00. As of 1817, I discussed results with pt who is feeling better and agreeable with d/c. He will be d/c'ed with dx including chest pain and stress response, and instructions to f/u with [facility]. - Diagnoses Provider Diagnoses: Chest pain, Stress response Discharge - Sign-Out/Discharge Documenting (check all that apply): Patient Departure Patient Received Moderate/Deep Sedation with Procedure: No - Discharge Plan Condition: Stable Disposition: HOME Referrals: Nikolay Minor MD [Primary Care Provider] - [facility] [Outside] Additional Instructions: Please follow up with [facility], and keep working on reducing your stress levels. Return to the ED with any new or worsening symptoms. - Attestation Statements Document Initiated by Derrekibe: Yes Documenting Scribe: Melina Peters Provider For Whom Rama is Documenting (Include Credential): Kwame Dewey MD. Scribe Attestation: I, Melina Peters, scribed for Kwame Dewey MD. on 12/13/18 at 1820. Status of Scribe Document: Ready
[2018-12-13 14:06] LABS: ABS Basophils 0.1 10^3/ul (0-0.2); ABS Eosinophils 0.2 10^3/ul (0-0.6); ABS Lymphocytes 2.3 10^3/ul (1.0-4.8); ABS Monocytes 0.7 10^3/ul (0-0.8); ABS Neutrophils 5.5 10^3/ul (1.5-7.7); ABS Nucleated RBC 0 10^3/ul; Eosinophil % 2.5 %; Hematocrit 46 % (36-46); Hemoglobin 15.6 g/dL (14.0-18.0); Lymphocyte % 26.3 %; Mean Corpuscular HGB Conc 34 g/dL (31-36); Mean Corpuscular Hemoglobin 30 pg (27-31); Mean Corpuscular Volume 86 fL (80-94); Mean Platelet Volume 10.9 fL (7.4-10.4); Nucleated Red Blood Cells % 0.1; Platelet Count 151 10^3/uL (150-450); Red Blood Count 5.27 10^6 /uL (4.18-5.48); Red Cell Distribution Width 13 % (10.5-15); White Blood Count 8.9 10^3/uL (3.5-10.8)
[2018-12-13 14:24] LABS: ALT 74 U/L (7-52); Albumin/Globulin Ratio 1.3 (1-3); Alkaline Phosphatase 73 U/L (34-104); BUN/Creatinine Ratio 14.5 (8-20); Blood Urea Nitrogen 11 mg/dL (6-24); CO2 Carbon Dioxide 22 mmol/L (22-32); Calcium 9.1 mg/dL (8.6-10.3); Chloride 102 mmol/L (101-111); EGFR African American 142.1 (>60); EGFR Non-African American 117.4 (>60); Glucose 272 mg/dL (70-100); Sodium 135 mmol/L (135-145)
[2018-12-13 15:06] LABS: Anion Gap 11 mmol/L (2-11)
[2018-12-13 18:00] LABS: Potassium Redraw 4.3 mmol/L (3.5-5.0)
[2018-12-13 18:40] VITALS: BP 140/93
== END 2018-12-13 18:38 | disposition home or self-care (01) ==
LOC: ED 12:51
DX: R07.9 Chest pain, unspecified (principal); F43.9 Reaction to severe stress, unspecified; I10 Essential (primary) hypertension; E11.9 Type 2 diabetes mellitus without complications; F17.210 Nicotine dependence, cigarettes, uncomplicated; Z88.0 Allergy status to penicillin; Z88.3 Allergy status to other anti-infective agents; Z79.899 Other long term (current) drug therapy; Z79.84 Long term (current) use of oral hypoglycemic drugs
CPT/HCPCS: 36415; 70450; 71045; 80053; 83605; 84484; 85025; 85379; 93005; 99283

== ENCOUNTER 2019-01-06 14:48 | Emergency (ER) | payer OTHER ==
--- OUTSIDE RECORDS SUMMARY | 2019-01-06 15:23 | XMS REPORT | Continuity of Care Document ---
:1985 External Reference #:[id number] Author Name Anibaljunior Adore Care Team Providers Name Role Phone Barb Banuelos MD Primary Care Physician Unavailable Payers Date Identification Numbers Payment Provider Subscriber Policy Number: [id number] [employer] Medicaid Dixon Del Angel PayID: [id number] [address] [address] [place] [address] Effective: 2014 Policy Number: [employer] Dixon Del Angel [id number] Expires: 2016 PayID: [id number] [address] [address] [place] [address] Expires: 2014 Policy Number: [id number] Medicaid Dixon Del Angel Group Name: 1 1 [address] PayID: [id number] [place] [address] Effective: 2012 Policy Number: [employer] Dixon Del Angel [id number] Expires: 2013 PayID: [id number] [address] [address] [place] [address] Advance Directives Description No Information Available Problems Active Problems Provider Date Morbid obesity Barb Banuelos M.D. Onset: 03/16/2012 Tobacco user Barb Banuelos M.D. Onset: 12/15/2013 Type 2 diabetes mellitus Renato Mccray M.D. Onset: 12/15/2017 Essential hypertension Barb Banuelos M.D. Onset: 01/05/2018 Sleep apnea Onset: Inactive Problems Elevated blood-pressure reading without Barb Banuelos M.D. 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 Tobacco Use Start: Unknown currently smokes 1/2 Pack Daily Smoking Status Reviewed: 12/22/18 currently smokes 1/2 Pack Daily ETOH Use consumes 5 beers per week Recreational Drug Use ritalin, oxycodone, Quit 2004 hydrocodone, ephedra with speed Tobacco Use Start: Unknown Patient is a current 15 cigarettes per day smoker, smokes every day Exercise Type/Frequency Exercises sporadically once a week Allergies, Adverse Reactions, Alerts Active Allergies Reaction Severity Comments Date Amoxicillin Anaphylaxis 03/16/2012 Penicillin Anaphylaxis 03/16/2012 Medications Active Medications SIG Qnty Indications Ordering Date Provider Lisinopril 1 by mouth every 30tabs I10 Nikolay Ackerman 12/22/2018 20mg day Yamileth Minor Tablets Omeprazole 1 by mouth every 30caps Nikolay Ackerman 12/22/2018 20mg day Yamileth Minor Capsules DR Metformin HCL 2 by mouth twice 360tabs E11.9 Nikolay Ackerman 11/22/2018 500mg a day Yamileth Minor Tablets Ozempic 0.5 mg weekly 1.500ml E11.9 Nikolay Ackerman 11/22/2018 0.25or 0.5 Yamileth Minor mg/Dose Solution Pen-Inject Freestyle Lite Test test once a day 100units E11.9 Nikolay Ackerman 11/22/2018 or as directed Yamileth Minor Strips Bupropion HCL ER ( Did Not Work ) 60tabs F17.210 Barb Banuelos, 2017 (Smoking Det) 1 tab daily x 7 M.D. 150mg days then 1 tab Tablets ER 12HR twice a day Glipizide take 1/2 tablet 90tabs E11.9 Barb Banuelos, 12/25/2017 5mg Tablets daily M.D. Wilber Contour Next check sugar twice 1units E11.9 Renato 12/15/2017 Blood Glucose daily before Yamileth Mccray Monitoring System breakfast and 1 hour after dinner w/Device Kit Wilber Microlet check cs twice 100units E11.9 [place] 12/15/2017 Lancets daily and as Yamileth Mccray [facility] needed History Medications Lisinopril 1 by mouth every 90tabs I10 Barbchristy Prettyan, 04/26/2018 - 10mg Tablets day M.D. 12/22/2018 Alogliptin-Metformin twice daily 60tabs E11.9 Barbchristy Banuelos, 04/26/2018 - HCL M.DDevaughn 04/26/2018 12.5-1000mg Tablets Alogliptin-Metformin once a day 30tabs E11.9 [facility] Lakisha, 04/26/2018 - HCL Logan.DDevaughn 11/22/2018 12.5-1000mg Tablets Lisinopril 1 by mouth every 90tabs I10 Barbjose Banuelos, 01/05/2018 - 5mg Tablets day M.D. 04/26/2018 Metformin HCL 1 by mouth daily 60tabs E11.9 [place] 12/25/2017 - 850mg Yamileth Mccray 04/26/2018 Tablets Bactrim take 1 tablet po 90tabs [place] 12/15/2017 - Tablets x 10 days Yamileth Mccray 01/05/2018 Alogliptin-Metformin twice daily 60tabs E11.9 [place] 12/15/2017 - HCL Yamileth Mccray 12/25/2017 12.5-1000mg Tablets Wilber Contour Next check cs twice 75units E11.9 [place] 12/15/2017 - Blood Glucose Test daily and as Yamileth Mccray 11/22/2018 needed Strips Bupropion HCL ER (XL) 1 by mouth every 7tabs 305.1 Barb Banuelos, 2013 - day x 7 days then M.D. 12/14/2017 150mg Tablets ER 24HR start 300 mg daily Bupropion HCL ER (XL) 1 by mouth every 60tabs 305.1 Barb Banuelos, 2013 - day M.D. 12/14/2017 300mg Tablets ER 24HR No Active Medications Unknown 12/15/2013 - 12/15/2013 Amlodipine Besylate 1 by mouth every 30tabs 401.9 Vika 12/15/2013 - 5mg day Cotton, M.D. 12/14/2017 Tablets Cephalexin 1 tab by mouth 20caps 684 Barb Banuelos, 04/07/2012 - 500mg twice a day M.D. 12/15/2013 Capsules Ciprofloxacin HCL 1 tab by mouth 14tabs 684 Barb Banuelos, 03/16/2012 - 250mg twice a day M.D. 03/23/2012 Tablets Nystatin Domestic apply to affected 3units 112.9 Barb Banuelos, 2011 - areas once a day M.D. 12/15/2013 Powder Oxycodone-Acetaminoph for dental Unknown - en surgery---take 1 03/11/2018 5-325mg/5ML Solution by mouth every 6 hours as needed for break through pain mdd=4 tabs, note scheduled amount Immunizations CPT Code Status Date Vaccine Lot # [id number] Given 12/15/2013 Tdap - Tetanus/Diptheria/Acellular Pertussis Vital Signs Date Vital Result Comment 12/22/2018 10:06am Height 71 inches 5'11" Weight 305.00 lb Heart Rate 82 /min BP Systolic Sitting 152 mmHg BP Diastolic Sitting 99 mmHg O2 % BldC Oximetry 97 % BMI (Body Mass Index) 42.5 kg/m2 11/22/2018 4:41pm Height 71 inches 5'11" Weight [...] Test Result H/L Range Note Laboratory test 12/13/2018 [facility] Lactic Acid 1.0 mmol/L N 0.5-2.0 [address] [place] [address] [phone] Troponin-I (TnI) 0.00 ng/mL <0.04 2 Potassium Redraw 4.3 mmol/L N 3.5-5.0 Ast Redraw 34 U/L N 13-39 Laboratory test 12/13/2018 [facility] D Dimer < 200 N Less Than [address] Quantitative ng/mL [address] [place] [address] [phone] CBC Auto Diff 12/13/2018 [facility] White Blood Count 8.9 N 3.5-10.[address] 10^3/[place] [address] [phone] Red Blood Count 5.27 10^6/uL N 4.18-5.48 Hemoglobin 15.6 g/dL N 14.0-18.0 Hematocrit 46 % N 36-46 Mean Corpuscular Volume 86 fL N 80-94 Mean Corpuscular Hemoglobin 30 pg N 27-31 Mean Corpuscular HGB Conc 34 g/dL N 31-36 Red Cell Distribution Width 13 % N 10.5-15 Platelet Count 151 10^3/uL N 150-450 Mean Platelet Volume 10.9 fL High 7.4-10.4 Abs Neutrophils 5.5 10^3/uL N 1.5-7.7 Abs Lymphocytes 2.3 10^3/uL N 1.0-4.8 Abs Monocytes 0.7 10^3/uL N 0-0.8 Abs Eosinophils 0.2 10^3/uL N 0-0.6 Abs Basophils 0.1 10^3/uL N 0-0.2 Abs Nucleated RBC 0 10^3/uL Granulocyte % 61.6 % Lymphocyte % 26.3 % Monocyte % 8.4 % Eosinophil % 2.5 % Basophil % 1.2 % Nucleated Red Blood Cells % 0.1 Comp Metabolic Panel 12/13/2018 [facility] Sodium 135 mmol/L N 135-[address] [place] [address] [phone] Chloride 102 mmol/L N 101-111 Co2 Carbon Dioxide 22 mmol/L N 22-32 Glucose 272 mg/dL High 70-100 Blood Urea Nitrogen 11 mg/dL N 6-24 Creatinine 0.76 mg/dL N 0.67-1.17 BUN/Creatinine Ratio 14.5 N 8-20 Calcium 9.1 mg/dL N 8.6-10.3 Total Protein 7.0 g/dL N 6.4-8.9 Albumin 4.0 g/dL N 3.2-5.2 Globulin 3.0 g/dL N 2-4 Albumin/Globulin Ratio 1.3 N 1-3 Total Bilirubin 0.40 mg/dL N 0.2-1.0 Alkaline Phosphatase 73 U/L N 34-104 Alt 74 U/L High 7-52 Egfr Non- 117.4 >60 Egfr 142.1 >60 4 Potassium TNP mmol/L 3.5-5.0 5 Anion Gap 11 mmol/L N 2-11 Ast TNP U/L 13-39 6 Laboratory test 12/13/2018 [facility] Troponin-I (TnI) 0.00 ng/ mL <0.04 7 finding [address] [place] [address] [phone] Lactic Acid 2.6 mmol/L High 0.5-2.0 8 Laboratory test 11/22/2018 [facility] House Hemoglobin A1c 8.3 High 5-7 finding Laboratory test 06/12/2018 [facility] Acetaminophen < 15 g/mL 9 finding [address] [place] [address] [phone] Laboratory test 04/26/2018 [facility] Hemoglobin A1c 7.1 High 5-7 finding Basic Metabolic 03/12/2018 [facility] Sodium 138 mmol/L N 135- 145 Panel [address] [place] [address] [phone] Potassium 4.4 mmol/L N 3.5-5.0 Chloride 104 mmol/L N 101-111 Co2 Carbon Dioxide 29 mmol/L N 22-32 Anion Gap 5 mmol/L N 2-11 Glucose 81 mg/dL N 70-100 Blood Urea Nitrogen 11 mg/dL N 6-24 Creatinine 0.76 mg/dL N 0.67-1.17 BUN/Creatinine Ratio 14.5 N 8-20 Calcium 9.2 mg/dL N 8.6-10.3 Egfr Non- 118.1 >60 Egfr 142.9 >60 10 Lipid Profile 03/12/2018 [facility] Triglycerides 135 mg/dL 11 (Trig/Chol/HDL) [address] [place] [address] [phone] Cholesterol 155 mg/dL 12 HDL Cholesterol 46.3 mg/dL 13 LDL Cholesterol 82 mg/dL 14 Ua Routine 12/15/2017 [facility] In House Ua Specific [place] 1.010 Ua PH 5 Ua Color yellow Ua Appera clear Ua WBC neg Ua Protein neg Ua Glucose 500+ Ua Ketones neg Ua Bilirubin neg Ua Urobilinogen neg Ua Nitrite neg Ua Occult Blood neg Laboratory test 12/15/2017 [facility] Glucose Fingerstick 297 finding Urine Microalbumin 12/15/2017 [facility] Ur Microalbumin 30.8 mg /L Random [address] (mg/L) [place] [address] [phone] Urine Creatinine 77.49 mg/dL Urine Microalbumin/Creatinine 39.7 ug/mg High <31 Laboratory test 12/15/2017 [facility] House Hemoglobin A1c 14.0 High 5-7 finding CBC Auto Diff 01/15/2015 [facility] White Blood Count 8.2 N 4.8-10.[address] 10^3/[place] [address] [phone] Red Blood Count 5.24 10^6/uL N 4.0-5.4 [...] Cells % 0.2 N Laboratory test 01/15/2015 [facility] Lactic Acid 0.9 mmol/L N 0.5-2.[address] [place] [address] [phone] Comp Metabolic 01/15/2015 [facility] Sodium 135 mmol/L N 133- [address] [place] [address] [phone] Potassium 3.9 mmol/L N 3.5-5.0 Chloride 102 [...] 95.4 N >60 Egfr 122.7 N >60 15 CBC With Manual Diff 03/02/2014 White Blood [...] 119.4 N >60 Egfr 153.6 N >60 16 Lipid Profile (Trig/Chol/HDL) 03/02/2014 Triglycerides 164 mg/dL N 17 Cholesterol 128 mg/dL N 18 HDL Cholesterol 35.8 mg/dL N 19 LDL Cholesterol 59 mg/dL N 20 Urinalysis Profile 03/02/2014 Urine Color Yellow N Urine Appearance Clear N Urine Specific [place] 1.015 N 1.010-1.030 Urine pH 5.0 N [...] Urine Squamous Epithelial Cell Present Abnormal Absent Laboratory test 03/02/2014 TSH (Thyroid 0.75 IU/mL N 0.34-5.60 finding Stimulating Horm) Laboratory test 04/07/2012 [facility] Hepatitis B Nonreactive Nonreactive finding [address] [place] [address] [phone] Hepatitis C Antibody Nonreactive Nonreactive Transferrin 289 mg/dL 200 - 360 21 Ceruloplasmin 21.8 mg/dL () 22 Freida (Antinuclear 04/07/2012 [facility] Antinuclear AB NEGATIVE Negative Antibodies) [address] [place] [address] [phone] Freida Rev By MD LEONARDO NIELSEN <SEE NOTE> 23 Antinuclear AB NEGATIVE (NEG) CBC Auto Diff 04/05/2012 [facility] White Blood 8.7 CUMM 4.8- [address] [place] [address] [phone] Red Cell Count 5.11 CUMM 4.6-6.2 Hemoglobin [...] Eosinophils 0.2 0-0.6 Abs Basophils 0.1 0-0.2 Urinalysis W/Microscopic 04/05/2012 [facility] Ua Color YELLOW Yellow [address] [place] [address] [phone] Appearance-Urine CLEAR Clear Specific [place]-Ur 1.019 1.010-1.030 Esterase-Urine NEGATIVE Negative Nitrite NEGATIVE Negative [id number] NEGATIVE Negative Protein-Urine NEGATIVE Negative PH-Urine 5.5 5-9 Blood-Urine NEGATIVE Negative Ketones-Urine NEGATIVE Negative Bilirubin-Ur NEGATIVE Negative Glucose-Urine NEGATIVE Negative WBC-Urine 0-2 0-5 RBC-Urine NONE SEEN 0-2 Epith Cells-Ur RARE None Vad 04/05/2012 [facility] Vad Final Nonreactive Nonreactive [address] [place] [address] [phone] Laboratory 04/05/2012 [facility] TSH 1.21 MIU/ML 0.34-5.[address] [place] [address] [phone] Lipid 04/05/2012 [facility] Triglyceride 203 mg/dL High 40- [address] (Trig/Chol/[place] [address] DL) [phone] Cholesterol 152 mg/dL Less Than 200 25 High Density Lipoprotein 42 mg/dL 40-60 26 Cholesterol/HDL Ratio 3.62 AVERAGE 1-4.97 Low Density Lipoprotein 69 mg/dL Less Than 100 27 Comp Metabolic Panel 04/05/2012 [facility] Sodium 138 mmol/L 135-[address] [place] [address] [phone] Potassium 4.5 mmol/L 3.5-5.0 Chloride 107 mmol/L 101-111 Co2 (Carbon Dioxide) 26.0 mmol/L 22-32 Anion Gap 5.0 mmol/L 2-11 28 Glucose 106 mg/dL High 70-100 BUN 12 mg/dL 6-24 Creatinine 0.8 mg/dL 0.50-1.40 One Over Creatinine 1.25 BUN/Creatinine Ratio 15.0 8-20 Calcium 9.2 mg/dL 8.1-9.9 Total Protein 6.8 GM/DL 6.2-8.1 Albumin 3.9 GM/DL 3.6-5.4 Globulin 2.9 GM/DL 2-4 Albumin/Globulin Ratio 1.3 1-3 Bilirubin Total 0.7 mg/dL 0.4-1.5 29 Alkaline Phosphatase 70 U/L 39-117 Alt (SGPT) 121 U/L High 17-63 Ast (Sgot) 54 U/L High 12-42 eGFR Non- 115.1 > 60 eGFR 148.0 > 60 30 1 [facility] Severe Sepsis and Septic Shock Management Bundle Measure requires all lactic acids initially measuring >2.0 mmol/L be repeated. 2 Troponin-I testing on Plasma Separator Tubes (PST) has a known false positive rate of 0.20-0.40%. All positive troponins reflex immediately to secondary confirmatory testing. Using the eOriginal DxI 800 Access Immunoassay systems, the 99th percentile upper reference limit was demonstrated to be < 0.03 ng/mL. 3 Please note: The following may produce a false positive D Dimer test: - Rheumatoid factor greater than 60 IU/ml - Plasma hemoglobin greater than 0.05 gm/dl - Bilirubin greater than 50 mg/dl - Lipids greater than 1000 mg/dl - FDP greater than 20 ug/ml 4 Because ethnic data is not always readily [...] 15-29 5 Kidney failure <15 (or dialysis) 5 Specimen Hemolyzed. Result may not be valid. Unable to report test result due to hemolysis. 6 Unable to report test result due to hemolysis. 7 Troponin-I testing on Plasma Separator Tubes (PST) has a known false positive rate of 0.20-0.40%. All positive troponins reflex immediately to secondary confirmatory testing. Using the eOriginal DxI 800 Access Immunoassay systems, the 99th percentile upper reference limit was demonstrated to be < 0.03 ng/mL. 8 Critical Result LACT:2.6 Called to DONI at: 14:47:52 by:[id number] Read back by:DONI [facility] Severe Sepsis and Septic Shock Management Bundle Measure requires all lactic acids initially measuring >2.0 mmol/L be repeated. 9 Therapeutic concentration: <50 ug/mL Toxic concentration: >120 ug/mL 10 Because ethnic data is not always readily [...] 15-29 5 Kidney failure <15 (or dialysis) 11 Desirable: <150 Borderline High: 150-199 High: 200-499 Very High: >500 12 Desirable: <200 Borderline High: 200-239 High: >239 13 Low: <40 Desirable: 40-60 High: >60 14 Desirable: <100 Near Optimal: 100-129 Borderline High: 130-159 High: 160-189 Very High: >189 15 Because ethnic data is not always readily [...] 15-29 5 Kidney failure <15 (or dialysis) 16 Because ethnic data is not always readily [...] 15-29 5 Kidney failure <15 (or dialysis) 17 Desirable <150 Borderline high 150-199 High 200-499 Very High >500 18 Desirable <200 Borderline high 200-239 High >239 19 Low <40 Desirable: 40-60 High: >60 20 Desirable <100 Near Optimal 100-129 Borderline high 130-159 High 160-189 Very High >189 21 Test Performed by: [place] [address] Informatica: Eddi Lobo III, M.D. 22 -- REFERENCE VALUE -- 15.0 - 30.0 Test Performed by: [facility] [place], [facility] [address] [place] [address] [employer]form[employer]: Eddi Lobo III, M.D. 23 LEONARDO QUACH 24 It is recognized that currently available assays [...] 95% confidence interval of 99.78 to 99.96%. 25 CHOLESTEROL INTERPRETATION: Desirable: Less than 200 MG/DL Borderline-High Risk: 200-239 MG/DL High-Risk: 240 MG/DL and over 26 HDL INTERPRETATION: Undesirable: High Risk: Less than 40 MG/DL Desirable: Low Risk: Greater than 60 MG/DL 27 LDL INTERPRETATION: Low Risk Optimal Level: LDL Less than 100 MG/DL Near or Above Optimal: LDL 100-129 MG/DL Borderline High Risk: LDL 130-159 MG/DL High Risk: LDL 160-189 MG/DL Very High Risk: LDL Greater than 189 MG/DL 28 Anion gap measurement may be of limited value in the presence of any alkalosis, especially in a combined acid base disorder. . 29 A metabolite of Naproxen, O-desmethylnaproxen, has been shown to interfere with the Jenromeoik-Raul method for measuring total bilirubin. Samples from patients who have taken Naproxen have shown spurious elevation in total bilirubin levels. 30 Because ethnic data is not always readily [...] dialysis) Procedures Date Code Description Status 06/06/2014 58929 Polysomnography Sleep Staging 4+ Parameters Completed Encounters Type Date Location Provider Dx Diagnosis Office Visit 11/22/2018 [facility] Austin Ackerman E11.9 Type 2 diabetes 4:00p Jonn Minor M.D. mellitus without complications I10 Essential (primary) hypertension G47.33 Obstructive sleep apnea (adult) (pediatric) Office Visit 04/26/2018 10:10a [facility] Austin Day E11.9 Type 2 diabetes Jonn Banuelos M.D. mellitus without [place] complications F17.210 Nicotine dependence, cigarettes, uncomplicated E66.01 Morbid (severe) obesity due to excess calories X32.xxxA Exposure to sunlight, initial encounter I10 Essential (primary) hypertension Office Visit 03/12/2018 8:30a Pulmonology And Flores G47.33 Obstructive sleep [facility] apnea (adult) [facility] (pediatric) E66.01 Morbid (severe) obesity due to excess calories F17.210 Nicotine dependence, cigarettes, uncomplicated Office Visit 01/05/2018 11:50a [facility] Austin Day E11.9 Type 2 diabetes Jonn Banuelos M.D. mellitus without [place] complications I10 Essential (primary) hypertension G47.33 Obstructive sleep apnea (adult) (pediatric) F17.210 Nicotine dependence, cigarettes, uncomplicated Office Visit 12/25/2017 [facility] Austin Gross E11.9 Type 2 diabetes 8:20a Jonn Mccray M.D. mellitus without [address] complications Office Visit 12/15/2017 [facility] Austin Gross Z00.01 Encounter for 2:00p Jonn Mccray M.D. general adult [address] medical exam w abnormal findings R03.0 Elevated blood-pressure reading, w/o diagnosis of htn E11.9 Type 2 diabetes mellitus without complications Office Visit 03/21/2014 9:50a [facility] Internal Barb 401.1 Hypertension Benign Medicine Yamileth Banuelos 305.1 Tobacco Use Disorder 719.46 Pain Joint Lower Leg Office Visit 12/15/2013 11:10a [facility] Austin Banuelos 305.1 Tobacco Use Medicine Yamileth Disorder V70.0 Examination General Medical Routine AT Health Care Facility 278.01 Obesity Morbid 794.8 Liver Study Abnormal 780.79 Malaise And Fatigue Other 401.9 Hypertension Unspec 719.46 Pain Joint Lower Leg 702.0 Actinic Keratosis Office Visit 04/07/2012 9:50a [facility] Internal Barb Banuelos, 278.01 Obesity Morbid Medicine Yamileth 794.8 Liver Study Abnormal 112.9 Candidiasis Unspec Site 272.1 Hypertriglyceridemia Pure 684 Impetigo 719.41 Pain Joint Shoulder Region 796.2 Blood Pressure Reading Elevated W/O Hypertension Office Visit 03/16/2012 9:00a [facility] Internal [facility] Barb Banuelos M.D. 684 Impet[place] 112.9 Candidiasis Unspec Site 278.01 Obesity Morbid 780.79 Malaise And Fatigue Other 796.2 Blood Pressure Reading Elevated W/O Hypertension 719.41 Pain Joint Shoulder Region V77.91 Screening For Lipoid Disorders V77.1 Screening Diabetes Mellitus Plan of Treatment Future Appointment(s):03/24/2019 9:00 am - Nikolay Minor M.D. at [facility] Internal Yuizyeee27/08/2019 - Nikolay Minor M.D.E11.9 Type 2 diabetes mellitus without complicationsFollow up:3 [id number] Essential (primary) hypertensionNew Medication:Lisinopril 20 mg - 1 by mouth every dayG47.33 Obstructive sleep apnea (adult) (pediatric)R07.89 Other chest pain
[2019-01-06] MEDS ORDERED: Morphine 4 MG/ML VIAL (1 ml) 4 MG/ML VIAL IV ONE ×2 (16:21→17:24)
[2019-01-06] MEDS ORDERED: NS 0.9% 1000 ML** 1,000 ML IV ONE (16:22)
[2019-01-06] MEDS ORDERED: Ondansetron INJ* 2 MG/ML VIAL IV ONE (16:22)
--- NOTE | 2019-01-06 16:41 | ED ---
Abdominal Pain/Male - HPI Summary HPI Summary: This patient is a 33 year old male presenting to [facility] with a chief complaint of abdominal pain. He reports umbilical pain radiating to his back since yesterday morning. He woke up with the pain yesterday morning. He states he has not had pain like this before. He recently has started ozempic and has taken two doses so far. He thinks it may be from that. Pt denies any fever, chills, erythema of eyes, sore throat, CP, SOB, cough, N/V/ D, dysuria, hematuria, myalgia, edema, rash, numbness/tingling or dizziness. - History of Current Complaint Chief Complaint: EDAbdPain Stated Complaint: ABDOMINAL PAIN PER PT Time Seen by Provider: 01/06/19 16:00 Hx Obtained From: Patient Onset/Duration: Lasting Days Timing: Constant Pain Intensity: 8 Pain Scale Used: 0-10 Numeric Location: Umbilical - Allergies/Home Medications Allergies/Adverse Reactions: Allergies Allergy/AdvReac Type Severity Reaction Status Date / Time amoxicillin AdvReac Rash Verified 01/06/19 15:05 Penicillins AdvReac Rash Verified 01/06/19 15:05 Home Medications: Home Medications Lisinopril TAB* [Prinivil TAB*] 20 mg PO DAILY 01/06/19 [History Confirmed 01/06] Omeprazole CAP (NF) [Prilosec CAP* 20 MG] 20 mg PO DAILY 01/06/19 [History Confirmed 01/06/19] glipiZIDE TAB* [Glucotrol TAB*] 5 mg PO BID 01/06/19 [History Confirmed 01/06/19 ] PMH/Surg Hx/FS Hx/Imm Hx Endocrine/Hematology History: Reports: Hx Diabetes Denies: Hx Thyroid Disease Cardiovascular History: Reports: Hx Hypertension Denies: Hx Pacemaker/ICD Respiratory History: Denies: Hx Asthma, Hx Chronic Obstructive Pulmonary Disease (COPD) GI History: Denies: Hx Ulcer History: Denies: Hx Renal Disease Sensory History: Denies: Hx Hearing Aid Neurological History: Reports: Hx Headaches Psychiatric History: Denies: Hx Panic Disorder - Immunization History Date of Tetanus Vaccine: utd Date of Influenza Vaccine: fall 2016 Infectious Disease History: No Infectious Disease History: Denies: Hx Clostridium Difficile, Hx Hepatitis, Hx Human Immunodeficiency Virus (HIV), Hx of Known/Suspected MRSA, Hx Shingles, Hx Tuberculosis, Hx Known/ Suspected VRE, Hx Known/Suspected VRSA, History Other Infectious Disease, Traveled Outside the [place] in Last 30 Days - Family History Known Family History: Positive: Diabetes Negative: Cardiac Disease, Hypertension - Social History Alcohol Use: Weekly Hx Substance Use: No Substance Use Type: Reports: None Hx Tobacco Use: Yes Smoking Status (MU): Heavy Every Day Tobacco Smoker Type: Cigarettes Amount Used/How Often: 10-12 cig/ days Review of Systems Negative: Fever, Chills Negative: Erythema Negative: Sore Throat Negative: Chest Pain Negative: Shortness Of Breath, Cough Positive: Abdominal Pain. Negative: Vomiting, Diarrhea, Nausea Negative: dysuria, hematuria Positive: Other - Back pain. Negative: Myalgia, Edema Negative: Rash Neurological: Other - Neg: Dizziness Negative: Numbness All Other Systems Reviewed And Are Negative: No Physical Exam - Summary Physical Exam Summary: Constitutional: Well-developed, Well-nourished, Alert. (-) Distressed Skin: Warm, Dry HENT: Normocephalic; Atraumatic Eyes: Conjunctiva normal Neck: Musculoskeletal ROM normal neck. (-) JVD, (-) Stridor, (-) Tracheal deviation Cardio: Rhythm regular, rate normal, Heart sounds normal; Intact distal pulses; The pedal pulses are 2+ and symmetric. Radial pulses are 2+ and symmetric. (-) Murmur Pulmonary/Chest wall: Effort normal. (-) Respiratory distress, (-) Wheezes, (-) Rales Abd: Soft, (+) RUQ tenderness, (-) Distension, (-) Guarding, (-) Rebound Musculoskeletal: (-) Edema Lymph: (-) Cervical adenopathy Neuro: Alert, Oriented x3 Psych: Mood and affect Normal Triage Information Reviewed: Yes Vital Signs On Initial Exam: Initial Vitals Temp Pulse Resp BP Pulse Ox 98.6 F 106 18 170/104 97 01/06/19 15:02 01/06/19 15:02 01/06/19 15:02 01/06/19 15:02 01/06/19 15:02 Vital Signs Reviewed: Yes Diagnostics - Vital Signs Vital Signs Temp Pulse Resp BP Pulse Ox 01/06/19 16:31 18 01/06/19 15:02 98.6 F 106 18 170/104 97 - Laboratory Result Diagrams: 01/06/19 16:49 01/06/19 16:50 Lab Statement: Any lab studies that have been ordered have been reviewed, and results considered in the medical decision making process. - Ultrasound No standard instances Ultrasound Interpretation Completed By: Radiologist Summary of Ultrasound Findings: Gallbladder U/S: 1. Small amount of sludge within the gallbladder. 2. Hepatomegaly and findings most consistent with fatty infiltration. Unchanged. ED Provider has reviewed this report. Abdominal Pain Male Course/Dx - Course Course Of Treatment: This patient is a 33 year old male presenting to [facility] with a chief complaint of abdominal pain. Labs reveal urine ketones trace A, urine glucose 3+ trace A. Gallbladder U/S reveals 1. Small amount of sludge within the gallbladder. 2. Hepatomegaly and findings most consistent with fatty infiltration. Unchanged. - Diagnoses Provider Diagnoses: Abdominal pain Discharge - Sign-Out/Discharge Documenting (check all that apply): Patient Departure Patient Received Moderate/Deep Sedation with Procedure: No - Discharge Plan Condition: Good Disposition: HOME Prescriptions: oxyCODONE/Acetamin 5/325 MG* [Percocet 5/325 TAB*] 2 tab PO Q4H PRN #15 tab MDD 6 PRN Reason: Pain Patient Education Materials: Acute Abdominal Pain (ED) Referrals: Eduardo Brock MD [Medical Doctor] - As Soon As Possible - Billing Disposition and Condition Condition: GOOD Disposition: Home - Attestation Statements Document Initiated by Scribe: Yes Documenting Scribe: Ayo Vivar Provider For Whom Scribe is Documenting (Include Credential): Kwame Dewey MD Scribe Attestation: Ayo Hollis scribed for Kwame Dewey MD on 01/13/19 at 1249. Scribe Documentation Reviewed: Yes Provider Attestation: The documentation as recorded by the Ayo bear accurately reflects the service I personally performed and the decisions made by , Kwame Dewey MD Status of Scribe Document: Viewed
[2019-01-06 16:48] LABS: Urine Appearance Clear; Urine Bilirubin Negative (Negative); Urine Blood Negative (Negative); Urine Color Yellow; Urine Glucose 3+(>=500 mg/dL) (Negative); Urine Ketones Trace (Negative); Urine Nitrite Negative (Negative); Urine Protein Negative (Negative); Urine Urobilinogen Negative (Negative)
[2019-01-06 17:03] LABS: ABS Basophils 0.1 10^3/ul (0-0.2); ABS Eosinophils 0.2 10^3/ul (0-0.6); ABS Lymphocytes 2.3 10^3/ul (1.0-4.8); ABS Monocytes 0.8 10^3/ul (0-0.8); ABS Neutrophils 6.5 10^3/ul (1.5-7.7); Eosinophil % 1.9 %; Hematocrit 47 % (42-52); Lymphocyte % 23.3 %; Mean Corpuscular HGB Conc 34 g/dL (31-36); Mean Corpuscular Hemoglobin 29 pg (27-31); Mean Corpuscular Volume 86 fL (80-94); Mean Platelet Volume 11.2 fL (7.4-10.4); Nucleated Red Blood Cells % 0.2; Platelet Count 150 10^3/uL (150-450); Red Blood Count 5.46 10^6 /uL (4.18-5.48); Red Cell Distribution Width 14 % (10.5-15)
[2019-01-06 17:14] LABS: Albumin 4.1 g/dL (3.2-5.2); Albumin/Globulin Ratio 1.3 (1-3); BUN/Creatinine Ratio 11.8 (8-20); C Reactive Protein 10.73 mg/L (<8.01); Calcium 9.3 mg/dL (8.6-10.3); EGFR African American 142.1 (>60); EGFR Non-African American 117.4 (>60); Globulin 3.2 g/dL (2-4); Potassium 4.1 mmol/L (3.5-5.0); Total Bilirubin 0.3 mg/dL (0.2-1.0); Total Protein 7.3 g/dL (6.4-8.9)
[2019-01-06] MEDS ORDERED: Lidocaine 2% VISCOUS* 15 ML UDC PO ONE (18:13)
[2019-01-06] MEDS ORDERED: Al Hydrox/Mg Hydrox/Simet LIQ* 30 ML UDC PO ONE (18:13)
[2019-01-06] MEDS ORDERED: HYDROcodone/ACETAMIN 5-325 MG* 1 TAB PO ONE (19:51)
[2019-01-06] MEDS ORDERED: Iodixanol* (CONTRAST) 320 MG/ML 100 ML SDV IV ONE (20:35)
--- NOTE | 2019-01-06 20:57 | ED ---
Progress - Progress Note Progress Note: Pt is a signout from Dr. Dewey at shift change on 01/06/[address] a/p results. - Results/Orders Results/Orders: CT a/p shows 1. There is a fat filled umbilical hernia with hernia sac measuring 3.2 cm diameter without signs of incarceration. 2. No other acute CT pathology. ED provider has reviewed this report. Course/Dx - Course Course Of Treatment: Pt is a signout from Dr. Dewey at shift change on 01/06/[address] a/p results. CT a/p shows: 1. There is a fat filled umbilical hernia with hernia sac measuring 3.2 cm diameter without signs of incarceration. 2. No other acute CT pathology. ED physician has reviewed this report. Pt will be sent home with a dx of acute abd pain, and he is stable and agreeable with this plan. - Diagnoses Provider Diagnoses: Abdominal pain Discharge - Sign-Out/Discharge Documenting (check all that apply): Patient Departure, Receiving Sign-Out Receiving patient FROM: Kwame Dewey Patient Received Moderate/Deep Sedation with Procedure: No - Discharge Plan Condition: Good Disposition: HOME Prescriptions: oxyCODONE/Acetamin 5/325 MG* [Percocet 5/325 TAB*] 2 tab PO Q4H PRN #15 tab MDD 6 PRN Reason: Pain Patient Education Materials: Acute Abdominal Pain (ED) Referrals: Eduardo Brock MD [Medical Doctor] - As Soon As Possible - Attestation Statements Document Initiated by Scribe: Yes Documenting Scribe: Melina Peters Provider For Whom Derrekibalesia is Documenting (Include Credential): Kevin Ramos MD. Scribe Attestation: Melina Hollis, scribed for Kevin Ramos MD. on 01/06/19 at 3802. Status of Scribe Document: Ready
[2019-01-07 00:09] VITALS: BP 140/92
== END 2019-01-07 00:10 | disposition home or self-care (01) ==
LOC: ED 14:48
DX: K42.9 Umbilical hernia without obstruction or gangrene (principal); K82.9 Disease of gallbladder, unspecified; K76.0 Fatty (change of) liver, not elsewhere classified; I10 Essential (primary) hypertension; E11.9 Type 2 diabetes mellitus without complications; F17.210 Nicotine dependence, cigarettes, uncomplicated; Z79.84 Long term (current) use of oral hypoglycemic drugs; Z88.0 Allergy status to penicillin; Z88.3 Allergy status to other anti-infective agents; Z79.899 Other long term (current) drug therapy
CPT/HCPCS: 36415; 74177; 76705; 80053; 81003; 83605; 83690; 85025; 86140; 96361; 96374; 96375; 96376; 99284; A9270-GY; J2270; J2405; Q9967

== ENCOUNTER 2019-01-23 13:34 | Emergency (ER) | payer SELFPAY ==
[2019-01-23] MEDS ORDERED: Aspirin 81 mg CHEW TAB* 81 MG TAB.CHEW PO ONE (14:43)
[2019-01-23 14:57] LABS: Hematocrit 49 % (42-52); Hemoglobin 16.7 g/dL (14.0-18.0); Mean Corpuscular HGB Conc 34 g/dL (31-36); Mean Corpuscular Hemoglobin 29 pg (27-31); Mean Corpuscular Volume 86 fL (80-94); Mean Platelet Volume 10.8 fL (7.4-10.4); Platelet Count 182 10^3/uL (150-450); Red Blood Count 5.68 10^6 /uL (4.18-5.48); Red Cell Distribution Width 14 % (10-15); White Blood Count 10.9 10^3/uL (3.5-10.8)
--- NOTE | 2019-01-23 15:13 | ED ---
HPI Chest Pain - HPI Summary HPI Summary: This patient is a 33 year old M presenting to ED with a chief complaint of abdominal/chest pain that radiates into his back since two days ago. The CC is described as a pressure above the umbilical area that radiates upwards and to the back. The pain is intermittent. Patient was here 01/06 for the same pain, but it has worsened in the past two days. The patient rates the pain 8/10 in severity. Symptoms aggravated by nothing. Symptoms alleviated by nothing. PMHx of DM, HTN. Denies surgeries. FHx of DM, but no cardiac disease or HTN. Patient occasionally drinks alcohol, does not use substances, and is a light every day tobacco smoker. - History of Current Complaint Chief Complaint: EDChestPainROMI Time Seen by Provider: 01/23/19 14:42 Hx Obtained From: Patient Onset/Duration: Started Days Ago - Worsened 2 days ago, Started Weeks Ago, Worse Since Timing: Constant, Intermittent - Fluctuates between a 5/10 and 8/10, Lasting Weeks Initial Severity: Severe Current Severity: Severe Pain Intensity: 8 Pain Scale Used: 0-10 Numeric Chest Pain Radiates: Yes Chest Pain Radiates To:: Back, Other - Abdomen Character: Pressure/Squeezing Aggravating Factor(s): Nothing Alleviating Factor(s): Nothing Associated Signs and Symptoms: Positive: Chest Pain, Back Pain, Abdominal Pain - Allergy/Home Medications Allergies/Adverse Reactions: Allergies Allergy/AdvReac Type Severity Reaction Status Date / Time amoxicillin AdvReac Rash Verified 01/23/19 13:48 Penicillins AdvReac Rash Verified 01/23/19 13:48 Home Medications: Home Medications metFORMIN* [Glucophage 1000 MG TAB *] 1,000 mg PO DAILY 01/23/19 [History Confirmed 01/23/19] PMH/Surg Hx/FS Hx/Imm Hx Previously Healthy: No Endocrine/Hematology History: Reports: Hx Diabetes Denies: Hx Thyroid Disease Cardiovascular History: Reports: Hx Hypertension Denies: Hx Pacemaker/ICD Respiratory History: Denies: Hx Asthma, Hx Chronic Obstructive Pulmonary Disease (COPD) GI History: Denies: Hx Ulcer History: Denies: Hx Renal Disease Sensory History: Denies: Hx Hearing Aid Neurological History: Reports: Hx Headaches Psychiatric History: Denies: Hx Panic Disorder - Surgical History Surgery Procedure, Year, and Place: Denies - Immunization History Date of Tetanus Vaccine: wid Date of Influenza Vaccine: fall 2016 Infectious Disease History: No Infectious Disease History: Denies: Hx Clostridium Difficile, Hx Hepatitis, Hx Human Immunodeficiency Virus (HIV), Hx of Known/Suspected MRSA, Hx Shingles, Hx Tuberculosis, Hx Known/ Suspected VRE, Hx Known/Suspected VRSA, History Other Infectious Disease, Traveled Outside the [place] in Last 30 Days - Family History Known Family History: Positive: Diabetes Negative: Cardiac Disease, Hypertension - Social History Alcohol Use: Weekly Hx Substance Use: No Substance Use Type: Reports: None Hx Tobacco Use: Yes Smoking Status (MU): Heavy Every Day Tobacco Smoker Type: Cigarettes Amount Used/How Often: 10-12 cig/ days Review of Systems Positive: Chest Pain - Radiates to back Positive: Abdominal Pain Musculoskeletal: Other - Back pain All Other Systems Reviewed And Are Negative: Yes Physical Exam - Summary Physical Exam Summary: VITAL SIGNS: Reviewed. GENERAL: Patient is a well-developed and nourished male who is lying comfortable in the stretcher. Patient is not in any acute respiratory distress. HEAD AND FACE: Normocephalic and atraumatic. EYES: PERRLA, EOMI x 2, No injected conjunctiva. EARS: Hearing grossly intact. Ear canals and tympanic membranes are WNL. MOUTH: Oropharynx within normal limits. NECK: Supple, trachea is midline, no adenopathy, no JVD. CHEST: Symmetric, no tenderness at palpation LUNGS: Clear to auscultation bilaterally. No wheezing or crackles. CVS: RRR, S1 and S2 present, no murmurs or gallops appreciated. ABDOMEN: periumbilical tenderness EXTREMITIES: FROM in all major joints, no edema, no cyanosis or clubbing. NEURO: Alert and oriented x 3. No acute neurological deficits. Speech is normal. SKIN: Dry and warm. Triage Information Reviewed: Yes Vital Signs On Initial Exam: Initial Vitals Temp Pulse Resp BP Pulse Ox 97.5 F 97 22 180/119 97 01/23/19 13:41 01/23/19 13:41 01/23/19 13:41 01/23/19 13:41 01/23/19 13:41 Vital Signs Reviewed: Yes Diagnostics - Vital Signs Vital Signs Temp Pulse Resp BP Pulse Ox 01/23/19 13:41 97.5 F 97 22 180/119 97 - Laboratory Lab Results: Lab Results 01/23/19 Range/Units 14:49 WBC 10.9 H (3.5-10.8) 10^3/uL RBC 5.68 H (4.18-5.48) 10^6 /uL Hgb 16.7 (14.0-18.0) g/dL Hct 49 (42-52) % MCV 86 (80-94) fL MCH 29 (27-31) pg MCHC 34 (31-36) g/dL RDW 14 (10-15) % Plt Count 182 (150-450) 10^3/uL MPV 10.8 H (7.4-10.4) fL Neut % (Auto) Pending Lymph % (Auto) Pending [place] % (Auto) Pending Eos % (Auto) Pending Baso % (Auto) Pending Absolute Neuts (auto) Pending Absolute Lymphs (auto) Pending Absolute Monos (auto) Pending Absolute Eos (auto) Pending Absolute Basos (auto) Pending Absolute Nucleated RBC Pending Nucleated RBC % Pending Result Diagrams: 01/23/19 14:49 01/23/19 14:49 Lab Statement: Any lab studies that have been ordered have been reviewed, and results considered in the medical decision making process. - Radiology CXR Radiology Interpretation Completed By: Radiologist Summary of Radiographic Findings: No radiographic evidence for acute cardiopulmonary abnormality on this. portable chest x-ray. Dr. Gallagher has reviewed this radiology report. - EKG 1453 Cardiac Rate: NL - 85 BPM EKG Rhythm: Sinus Rhythm Summary of EKG Findings: NSR 85 BPM, no STEMI, Q wave in V2 and V3. Re-Evaluation - Re-Evaluation First Eval Re-Evaluation Time: 18:37 Comment: Discussed results with patient. Patient will be discharged home with instructions to follow-up with Dr. Harrington for hernia repair. Patient understands and agrees with this plan. Chest Pain Course/Dx - Course Assessment/Plan: This patient is a 33 year old M presenting to ED with a chief complaint of abdominal/chest pain that radiates into his back since two days ago. The CC is described as a pressure above the umbilical area that radiates upwards and to the back. The pain is intermittent. Patient was here 01/06 for the same pain, but it has worsened in the past two days. The patient rates the pain 8/10 in severity. Symptoms aggravated by nothing. Symptoms alleviated by nothing. PMHx of DM, HTN. Denies surgeries. FHx of DM, but no cardiac disease or HTN. Patient occasionally drinks alcohol, does not use substances, and is a light every day tobacco smoker. Blood work without any significant abnormality except for WBCs of 10, glucose 174 and AST of 61. Troponin 0.00. Right upper quadrant ultrasound done on 01/06/19 impression: Small amount of sludge within the gallbladder. Hepatomegaly, and findings most consistent with fatty liver infiltration. Abdominopelvic ultrasound done on 01/06/19 impression: Fat filled umbilical hernia sac measuring up to 3.2 cm diameter without signs of incarceration. No other acute pathology. Chest x-ray impression: Negative for acute pathology. The patients blood pressure is significantly elevated therefore the patient was given albuterol 20 mg IV. The patient was given a second dose of morphine and at this point the patients pain is controlled and also blood pressure is controlled. I discussed my physical exam and findings with Dr. Harrington from surgery for the patients pain to be controlled, he does not recommend repeating the CT ultrasound of the pelvis or the ultrasound of the right upper quadrant. At this point the patient is feeling better at the patients pain is controlled before have no suspicion for an incarcerated hernia. However, he was given a specific instructions that if the pain increases, he develops any nausea vomiting, he develops any fevers or chills he should immediately return to the emergency department for further workup and management. The patient and the patients understand and agree with the plan. - Diagnoses Provider Diagnoses: Umbilical hernia, Abdominal pain, Uncontrolled hypertension - Provider Notifications Discussed Care Of Patient With: Reynaldo Harrington Time Discussed With Above Provider: 18:32 Instructed by Provider To: Other - Discussed patient case with Dr. Harrington, surgeon, who recommends not repeating the CT A/P. He recommends follow-up with [facility] for HTN and with himself for hernia repair as an outpatient. Discharge - Sign-Out/Discharge Documenting (check all that apply): Patient Departure - Discharge Patient Received Moderate/Deep Sedation with Procedure: No - Discharge Plan Condition: Stable Disposition: HOME Prescriptions: oxyCODONE/Acetamin 5/325 MG* [Percocet 5/325 TAB*] 1 tab PO Q6H PRN #12 tab MDD 4 PRN Reason: Pain Patient Education Materials: Umbilical Hernia (ED), Abdominal Pain (ED), Hypertension (ED) Forms: *Work Release Referrals: Nikolay Minor MD [Primary Care Provider] - 3 Days Reynaldo Harrington MD [Medical Doctor] - 3 Days Additional Instructions: FOLLOW UP WITH YOUR PRIMARY CARE PROVIDER FOR HYPERTENSION WITHIN ONE WEEK AND WITH DR. HARRINGTON, SURGEON FOR HERNIA REPAIR. RETURN TO THE ED FOR ANY WORSENING OR NEW SYMPTOMS. - Billing Disposition and Condition Condition: STABLE Disposition: Home - Attestation Statements Document Initiated by Derrekibe: Yes Documenting Scribe: Felix Alvarez Provider For Whom Rama is Documenting (Include Credential): Nikolay Gallagher MD Scribe Attestation: I, Felix Alvarez, scribed for Nikolay Gallagher MD on 01/24/19 at 1012. Scribe Documentation Reviewed: Yes Provider Attestation: The documentation as recorded by the Felix bear accurately reflects the service I personally performed and the decisions made by me, Nikolay Gallagher MD Status of Scribe Document: Viewed
[2019-01-23 15:16] LABS: Albumin 4.3 g/dL (3.2-5.2); Albumin/Globulin Ratio 1.3 (1-3); BUN/Creatinine Ratio 11.7 (8-20); Calcium 9.4 mg/dL (8.6-10.3); EGFR African American 139.9 (>60); EGFR Non-African American 115.6 (>60); Globulin 3.4 g/dL (2-4); Magnesium 2.6 mg/dL (1.9-2.7); Total Bilirubin 0.4 mg/dL (0.2-1.0); Total Protein 7.7 g/dL (6.4-8.9)
[2019-01-23 15:19] LABS: ABS Basophils 0.1 10^3/ul (0-0.2); ABS Eosinophils 0.3 10^3/ul (0-0.6); ABS Monocytes 0.8 10^3/ul (0-0.8); ABS Neutrophils 6.8 10^3/ul (1.5-7.7); Eosinophil % 2.4 %; Lymphocyte % 27.3 %; Nucleated Red Blood Cells % 0.1
[2019-01-23 15:20] LABS: CKMB ng/mL 0.7 ng/mL (0.6-6.3)
[2019-01-23 15:42] LABS: Potassium 4.2 mmol/L (3.5-5.0)
[2019-01-23 15:46] LABS: TSH (Thyroid Stimulating Horm) 1.48 mcIU/mL (0.34-5.60)
[2019-01-23] MEDS ORDERED: Morphine 4 MG/ML VIAL (1 ml) 4 MG/ML VIAL IV ONE ×2 (16:03→18:09)
[2019-01-23] MEDS ORDERED: Ondansetron INJ* 2 MG/ML VIAL IV ONE (16:04)
[2019-01-23] MEDS ORDERED: Labetalol IV* 5 MG/ML 20 ML VIAL IV PUSH ONE (16:42)
[2019-01-23] MEDS ORDERED: oxyCODONE/Acetamin 5/325 MG* TAB PO ONE (18:58)
[2019-01-23 19:07] VITALS: BP 180/90
== END 2019-01-23 19:06 | disposition home or self-care (01) ==
LOC: ED 13:34
DX: K42.9 Umbilical hernia without obstruction or gangrene (principal); I10 Essential (primary) hypertension; E11.9 Type 2 diabetes mellitus without complications; Z79.84 Long term (current) use of oral hypoglycemic drugs; F17.210 Nicotine dependence, cigarettes, uncomplicated
CPT/HCPCS: 36415; 71045; 80053; 82550; 82553; 83605; 83735; 83880; 84443; 84484; 85025; 85060; 93005; 96374; 96375; 99284; A9270-GY; J2270; J2405

== ENCOUNTER 2019-06-15 09:48 | Emergency (ER) | payer OTHER ==
--- OUTSIDE RECORDS SUMMARY | 2019-06-15 09:53 | XMS REPORT | Continuity of Care Document ---
:1985 External Reference #:[id number] Author Name [facility] (transmitted by agent of provider Isha Joyner) Address [address] [place] [address] Care Team Providers Name Role Phone Sebastian Connelly MD - Ophthalmology Care Team Information Registration Coordinator [phone] Nikolay Minor III, MD - Internal Care Team Information Registration Coordinator [phone] Medicine [facility] - Sleep Disorder Care Team Information Registration Coordinator Diagnostic Reynaldo Harrington MD - Surgery Care Team Information Registration Coordinator [phone] Problems Active Problems Provider Date Morbid obesity Barb Banuelos M.D. Onset: 03/16/2012 Tobacco user Barb Banuelos M.D. Onset: 12/15/2013 Type 2 diabetes mellitus Renato Mccray M.D. Onset: 12/15/2017 Essential hypertension Barb Banuelos M.D. Onset: 01/05/2018 Sleep apnea Onset: Social History Type Date Description Comments Sex Unknown Tobacco Use Start: Unknown currently smokes 1/2 Pack Daily Smoking Status Reviewed: 05/24/19 currently smokes 1/2 Pack Daily ETOH Use Drinks 2 Alcoholic Beverages Per Week Recreational Drug Use ritalin, oxycodone, Quit 2004 hydrocodone, ephedra with speed Tobacco Use Start: Unknown Patient is a current 15 cigarettes per day smoker, smokes every 05/24/19: Pt reports day he is in a [place] smoking study Recreational Drug Use Denies Drug Use Exercise Type/Frequency Exercises sporadically once a week Allergies, Adverse Reactions, Alerts Active Allergies Reaction Severity Comments Date Amoxicillin Anaphylaxis 03/16/2012 Penicillin Anaphylaxis 03/16/2012 Tegaderm rash 04/14/2019 Medications Active Medications SIG Qnty Indications Ordering Date Provider Amlodipine Besylate 1 by mouth every 90tabs I10 Nikolay Ackerman 05/24/2019 day Yamileth Minor 5mg Tablets Ozempic 1mg weekly 1.500ml E11.9 Nikolay Ackerman 04/20/2019 1mg/Dose Yamileth Minor Solution Pen-Inject Lisinopril 1 by mouth every 30tabs I10 Nikolay Ackerman 12/22/2018 20mg day Yamileth Mionr Tablets Omeprazole take 1 capsule by 30caps Nikolay Ackerman 12/22/2018 20mg mouth once daily Yamileth Minor Capsules DR Metformin HCL 2 by mouth twice 360tabs E11.9 Nikolay Ackerman 11/22/2018 500mg a day Yamileth Minor Tablets Freestyle Lite Test test once a day 100units E11.9 Nikolay Ackerman 11/22/2018 or as directed Yamileth Minor Strips Glipizide take 1 tab twice 60tabs E11.9 Nikolay Ackerman 12/25/2017 5mg Tablets a day Yamileth Minor Wilber Contour Next check sugar twice 1units E11.9 [place] 12/15/2017 Blood Glucose daily before Yamileth Mccray Monitoring System breakfast and 1 hour after dinner w/Device Kit Wilber Microlet check cs twice 100units E11.9 [place] 12/15/2017 Lancets daily and as Yamileth Mccray Misc needed History Medications Bactrim DS 1 by mouth twice a 14tabs L02.232 Reynaldo Harrington, 05/03/2019 - day LUCAS DOMINGUEZ Unknown 800-160mg Tablets Percocet 1 tablet by mouth 14tabs K42.9 Reynaldo Harrington, 03/29/2019 - 5-325mg every 4 hours as LUCAS DOMINGUEZ Unknown Tablets needed pain Ozempic 0.5 mg weekly 4.5ml E11.9 Nikolay Ackerman 01/25/2019 - 0.25Or maintenance dose Yamileth Minor 04/20/2019 0.5 mg/Dose pen Solution Pen-Inject Percocet every 6 hours 30tabs Nikolay Ackerman 01/23/2019 - 5-325mg Yamileth iMnor 05/24/2019 Tablets Glucotrol Twice Daily Unknown 01/06/2019 - 5mg 01/25/2019 Tablets Prinivil Every Day Unknown 01/06/2019 - 10mg 01/25/2019 Tablets Immunizations CPT Code Status Date Vaccine Lot # [id number] Given 12/15/2013 Tdap - Tetanus/Diptheria/Acellular Pertussis Vital Signs Date Vital Result Comment 05/24/2019 11:10am Height 71 inches 5'11" Weight 271.00 lb Heart Rate 83 /min BP Systolic Sitting 149 mmHg BP Diastolic Sitting 96 mmHg BMI (Body Mass Index) 37.8 kg/m2 05/11/2019 3:46pm Heart Rate 96 /min Respiratory Rate 18 /min Body Temperature 98.9 F Results Test Date Facility Test Result H/L Range Note Wound 05/03/2019 [facility] Wound/Misc SEE RESULT 1 Culture/Sensi [address] [place] [address] Stain [phone] Laboratory test 04/20/2019 [facility] Hemoglobin A1c 14.0 High 5-7 finding Urine Microalbumin 04/20/2019 [facility] Ur Microalbumin < 15.0 mg/L Random [address] (mg/L) [place] [address] [phone] Urine Creatinine 37.38 mg/dL Urine Microalbumin/Creatinine TNP <31 2 Laboratory test 04/06/2019 [facility] Point of 218 mg/dL High 70-100 [address] [place] [address] [phone] Laboratory test 04/06/2019 [facility] Point of 232 mg/dL High 70-100 [address] [place] [address] [phone] Laboratory test 04/06/2019 [facility] Point of 327 mg/dL High 70-100 [address] [place] [address] [phone] Laboratory test 01/23/2019 [facility] Troponin-I 0.00 <0.04 [address] (TnI) ng/[place] [address] [phone] Laboratory test 01/23/2019 [facility] TSH (Thyroid 1.48 Normal 0.34-5.[address] Stim Horm) mcIU/[place] [address] [phone] Pathologist Review (SEE NOTE) 7 CKMB 01/23/2019 [facility] CKMB ng/mL 0.7 ng/mL Normal 0.6- 6.[address] [place] [address] [phone] Laboratory test 01/23/2019 [facility] Magnesium 2.6 mg/dL Normal 1.9-2.[address] [place] [address] [phone] Creatine Kinase(CK) 76 U/L Normal 10-223 Troponin-I (TnI) 0.00 ng/mL <0.04 8 Comp Metabolic 01/23/2019 [facility] Sodium 135 mmol/L Normal 135-[address] [place] [address] [phone] Chloride 102 mmol/L Normal 101-111 Co2 Carbon Dioxide 25 mmol/L Normal 22-32 Glucose 174 mg/dL High 70-100 Blood Urea Nitrogen 9 mg/dL Normal 6-24 Creatinine 0.77 mg/dL Normal 0.67-1.17 BUN/Creatinine Ratio 11.7 Normal 8-20 Calcium 9.4 mg/dL Normal 8.6-10.3 Total Protein 7.7 g/dL Normal 6.4-8.9 Albumin 4.3 g/dL Normal 3.2-5.2 Globulin 3.4 g/dL Normal 2-4 Albumin/Globulin Ratio 1.3 Normal 1-3 Total Bilirubin 0.40 mg/dL Normal 0.2-1.0 Alkaline Phosphatase 66 U/L Normal 34-104 Alt 61 U/L High 7-52 Egfr Non- 115.6 >60 Egfr 139.9 >60 9 Potassium 4.2 mmol/L Normal 3.5-5.0 Anion Gap 8 mmol/L Normal 2-11 Ast 23 U/L Normal 13-39 Manual 01/23/2019 [facility] Immature 1.0 % Normal 0-[address] [place] [address] [phone] Neutrophil % 67.0 % Band % 1.0 % Normal 0-8 Lymphocytes % 21.0 % Monocytes % 6.0 % Eosinophils % 2.0 % Basophil % 1.0 % Variant Lymph % 2.0 % Normal 0-6 RBC Morphology Normal Normal Laboratory test 01/23/2019 [facility] B-Type 38 pg/mL <=[address] [place] [address] Peptide BNP [phone] CBC Auto Diff 01/23/2019 [facility] White Blood 10.9 High 3.5- 10.[address] Count 10^3/[place] [address] [phone] Red Blood Count 5.68 10^6/uL High 4.18-5.48 Hemoglobin 16.7 g/dL Normal 14.0-18.0 Hematocrit 49 % Normal 42-52 Mean Corpuscular Volume 86 fL Normal 80-94 Mean Corpuscular Hemoglobin 29 pg Normal 27-31 Mean Corpuscular HGB Conc 34 g/dL Normal 31-36 Red Cell Distribution Width 14 % Normal 10-15 Platelet Count 182 10^3/uL Normal 150-450 Mean Platelet Volume 10.8 fL High 7.4-10.4 Abs Neutrophils 6.8 10^3/uL Normal 1.5-7.7 Abs Lymphocytes 3.0 10^3/uL Normal 1.0-4.8 Abs Monocytes 0.8 10^3/uL Normal 0-0.8 Abs Eosinophils 0.3 10^3/uL Normal 0-0.6 Abs Basophils 0.1 10^3/uL Normal 0-0.2 Abs Nucleated RBC 0.0 10^3/uL Granulocyte % 62.1 % Lymphocyte % 27.3 % Monocyte % 7.2 % Eosinophil % 2.4 % Basophil % 1.0 % Nucleated Red Blood Cells % 0.1 Laboratory test 01/23/2019 [facility] Lactic Acid 1.1 mmol/L Normal 0.5-2.0 [address] [place] [address] [phone] Comp Metabolic 01/06/2019 [facility] Sodium 135 mmol/L Normal 135-[address] [place] [address] [phone] Potassium 4.1 mmol/L Normal 3.5-5.0 Chloride 101 mmol/L Normal 101-111 Co2 Carbon Dioxide 28 mmol/L Normal 22-32 Anion Gap 6 mmol/L Normal 2-11 Glucose 226 mg/dL High 70-100 Blood Urea Nitrogen 9 mg/dL Normal 6-24 Creatinine 0.76 mg/dL Normal 0.67-1.17 BUN/Creatinine Ratio 11.8 Normal 8-20 Calcium 9.3 mg/dL Normal 8.6-10.3 Total Protein 7.3 g/dL Normal 6.4-8.9 Albumin 4.1 g/dL Normal 3.2-5.2 Globulin 3.2 g/dL Normal 2-4 Albumin/Globulin Ratio 1.3 Normal 1-3 Total Bilirubin 0.30 mg/dL Normal 0.2-1.0 Alkaline Phosphatase 66 U/L Normal 34-104 Alt 82 U/L High 7-52 Ast 25 U/L Normal 13-39 Egfr Non- 117.4 >60 Egfr 142.1 >60 11 Laboratory test 01/06/2019 [facility] Lipase 49 U/L Normal 11.0-82.[address] [place] [address] [phone] C Reactive Protein 10.73 mg/L High <8.01 Lactic Acid 1.6 mmol/L Normal 0.5-2.0 12 Urinalysis Profile 01/06/2019 [facility] Urine Color Yellow [address] [place] [address] [phone] Urine Appearance Clear Urine Specific Rea 1.030 Normal 1.010-1.030 Urine pH 5.0 Normal 5-9 Urine Urobilinogen Negative Negative Urine Ketones Trace Abnormal Negative Urine Protein Negative Negative Urine Leukocytes Negative Negative Urine Blood Negative Negative Urine Nitrite Negative Negative Urine Bilirubin Negative Negative Urine Glucose 3+(>=500 mg/dL) Abnormal Negative CBC Auto 01/06/2019 [facility] White Blood 10.0 10^3/uL Normal 3.5-10.[address] [place] [address] [phone] Red Blood Count 5.46 10^6/uL Normal 4.18-5.48 Hemoglobin 16.0 g/dL Normal 14.0-18.0 Hematocrit 47 % Normal 42-52 Mean Corpuscular Volume 86 fL Normal 80-94 Mean Corpuscular Hemoglobin 29 pg Normal 27-31 Mean Corpuscular HGB Conc 34 g/dL Normal 31-36 Red Cell Distribution Width 14 % Normal 10.5-15 Platelet Count 150 10^3/uL Normal 150-450 Mean Platelet Volume 11.2 fL High 7.4-10.4 Abs Neutrophils 6.5 10^3/uL Normal 1.5-7.7 Abs Lymphocytes 2.3 10^3/uL Normal 1.0-4.8 Abs Monocytes 0.8 10^3/uL Normal 0-0.8 Abs Eosinophils 0.2 10^3/uL Normal 0-0.6 Abs Basophils 0.1 10^3/uL Normal 0-0.2 Abs Nucleated RBC 0.0 10^3/uL Granulocyte % 65.3 % Lymphocyte % 23.3 % Monocyte % 8.3 % Eosinophil % 1.9 % Basophil % 1.2 % Nucleated Red Blood Cells % 0.2 Laboratory test 12/13/2018 [facility] Lactic Acid 1.0 mmol/L Normal 0.5-2.0 [address] [place] [address] [phone] Troponin-I (TnI) 0.00 ng/mL <0.04 14 Potassium Redraw 4.3 mmol/L Normal 3.5-5.0 Ast Redraw 34 U/L Normal 13-39 Laboratory 12/13/2018 [facility] D Dimer < 200 Normal Less 15 test finding [address] Quantitative ng/[place] [address] 230 [phone] CBC Auto Diff 12/13/2018 [facility] White Blood 8.9 Normal 3.5 -10. [address] Count 10^3/uL 8 [place], [place] [id number] [phone] Red Blood Count 5.27 10^6/uL Normal 4.18-5.48 Hemoglobin 15.6 g/dL Normal 14.0-18.0 Hematocrit 46 % Normal 36-46 Mean Corpuscular Volume 86 fL Normal 80-94 Mean Corpuscular Hemoglobin 30 pg Normal 27-31 Mean Corpuscular HGB Conc 34 g/dL Normal 31-36 Red Cell Distribution Width 13 % Normal 10.5-15 Platelet Count 151 10^3/uL Normal 150-450 Mean Platelet Volume 10.9 fL High 7.4-10.4 Abs Neutrophils 5.5 10^3/uL Normal 1.5-7.7 Abs Lymphocytes 2.3 10^3/uL Normal 1.0-4.8 Abs Monocytes 0.7 10^3/uL Normal 0-0.8 Abs Eosinophils 0.2 10^3/uL Normal 0-0.6 Abs Basophils 0.1 10^3/uL Normal 0-0.2 Abs Nucleated RBC 0 10^3/uL Granulocyte % 61.6 % Lymphocyte % 26.3 % Monocyte % 8.4 % Eosinophil % 2.5 % Basophil % 1.2 % Nucleated Red Blood Cells % 0.1 Comp Metabolic 12/13/2018 [facility] Sodium 135 mmol/L Normal 135-[address] [place] [address] [phone] Chloride 102 mmol/L Normal 101-111 Co2 Carbon Dioxide 22 mmol/L Normal 22-32 Glucose 272 mg/dL High 70-100 Blood Urea Nitrogen 11 mg/dL Normal 6-24 Creatinine 0.76 mg/dL Normal 0.67-1.17 BUN/Creatinine Ratio 14.5 Normal 8-20 Calcium 9.1 mg/dL Normal 8.6-10.3 Total Protein 7.0 g/dL Normal 6.4-8.9 Albumin 4.0 g/dL Normal 3.2-5.2 Globulin 3.0 g/dL Normal 2-4 Albumin/Globulin Ratio 1.3 Normal 1-3 Total Bilirubin 0.40 mg/dL Normal 0.2-1.0 Alkaline Phosphatase 73 U/L Normal 34-104 Alt 74 U/L High 7-52 Egfr Non- 117.4 >60 Egfr 142.1 >60 16 Potassium TNP mmol/L 3.5-5.0 17 Anion Gap 11 mmol/L Normal 2-11 Ast TNP U/L 13-39 18 Laboratory test 12/13/2018 [facility] Troponin-I (TnI) 0.00 ng/ mL <0.04 [address] [place] [address] [phone] Lactic Acid 2.6 mmol/L Critical high 0.5-2.0 20 1 SEE RESULT BELOW Name: CARLOS DEL ANGEL : [address]: Reynaldo [place] MD Acct: [id number] Unit: [id number] AGE: 34 Location: [facility] Re05/03/19 SEX: M Status: REG REF SPEC: [id number] JAMILAH: 05/03/[address]: Reynaldo [place] MD REQ: [id number] RECD: 05/03/19 STATUS: COMP _ SOURCE: BACK SPDESC: ORDERED: Culture Stain COMMENTS: [id number] Specimen Description back abscess Procedure Result Reported Site Wound/Misc Gram Stain Final 05/03/19- 1554 ML 2+ Epithelial Cells 4+ Neutrophils 4+ Gram Positive Cocci Wound/Misc Culture Final 05/05/19- 09 ML Organism 1 NORMAL LAURA Quantity 2+ * ML - Main Lab . END OF REPORT DEPARTMENT OF PATHOLOGY, [address] [place] [address] Dio England M.D. Director [facility] # [id number] 2 Unable to calculate due to low microalbumin 3 Fringe Knotter: [id number] 4 Fringe Knotter: [id number] 5 Fringe Knotter: [id number] 6 Troponin-I testing on Plasma Separator Tubes (PST) has a known false positive rate of 0.20-0.40%. All positive troponins reflex immediately to secondary confirmatory testing. Using the [employer] DxI 800 Access Immunoassay systems, the 99th percentile upper reference limit was demonstrated to be < 0.03 ng/mL. [address] England 8 Troponin-I testing on Plasma Separator Tubes (PST) has a known false positive rate of 0.20-0.40%. All positive troponins reflex immediately to secondary confirmatory testing. Using the [employer] DxI 800 Access Immunoassay systems, the 99th percentile upper reference limit was demonstrated to be < 0.03 ng/mL. 9 Because ethnic data is not always readily [...] 15-29 5 Kidney failure <15 (or dialysis) 10 [facility] Severe Sepsis and Septic Shock Management Bundle Measure requires all lactic acids initially measuring >2.0 mmol/L be repeated. 11 Because ethnic data is not always readily [...] 15-29 5 Kidney failure <15 (or dialysis) 12 [facility] Severe Sepsis and Septic Shock Management Bundle Measure requires all lactic acids initially measuring >2.0 mmol/L be repeated. 13 [facility] Severe Sepsis and Septic Shock Management Bundle Measure requires all lactic acids initially measuring >2.0 mmol/L be repeated. 14 Troponin-I testing on Plasma Separator Tubes (PST) has a known false positive rate of 0.20-0.40%. All positive troponins reflex immediately to secondary confirmatory testing. Using the [employer] DxI 800 Access Immunoassay systems, the 99th percentile upper reference limit was demonstrated to be < 0.03 ng/mL. 15 Please note: The following may produce a false positive D Dimer test: - Rheumatoid factor greater than 60 IU/ml - Plasma hemoglobin greater than 0.05 gm/dl - Bilirubin greater than 50 mg/dl - Lipids greater than 1000 mg/dl - FDP greater than 20 ug/ml 16 Because ethnic data is not always [...] 5 Kidney failure <15 (or dialysis) 17 Specimen Hemolyzed. Result may not be valid. Unable to report test result due to hemolysis. 18 Unable to report test result due to hemolysis. 19 Troponin-I testing on Plasma Separator Tubes (PST) has a known false positive rate of 0.20-0.40%. All positive troponins reflex immediately to secondary confirmatory testing. Using the [employer] DxI 800 Access Immunoassay systems, the 99th percentile upper reference limit was demonstrated to be < 0.03 ng/mL. 20 Critical Result LACT:2.6 Called to DONI at: 14:47:52 by:NICKY Read back by:DONI [facility] Severe Sepsis and Septic Shock Management Bundle Measure requires all lactic acids initially measuring >2.0 mmol/L be repeated. Procedures Date Code Description Status 05/03/2019 23269 I&D Of Abscess Complicated Completed 04/06/2019 72079 Repair Hernia Umbilical > 5 Yrs, Reducible Completed 04/06/2019 21487 Repair Hernia Umbilical > 5 Yrs, Reducible Completed Medical Devices Description No Information Available Encounters Type Date Location Provider Dx Diagnosis Office Visit 05/24/2019 [facility] Austin Ackerman E11.9 Type 2 diabetes 11:40a Medicine - Ernst Minor M.D. mellitus without complications I10 Essential (primary) hypertension G47.33 Obstructive sleep apnea (adult) (pediatric) K21.9 Gastro-esophageal reflux disease without esophagitis Office Visit 04/20/2019 11:40a [facility] Austin Ackerman E11.9 Type 2 diabetes Jonn Minor M.D. mellitus without Ccmob complications I10 Essential (primary) hypertension G47.33 Obstructive sleep apnea (adult) (pediatric) L02.222 Furuncle of back [any part, except buttock] Z79.84 longterm (current) use of oral hypoglycemic drugs F17.210 Nicotine dependence, cigarettes, uncomplicated Office Visit 03/29/2019 8:30a Surgical Reynaldo Petersen K42.9 [facility] [place] MD, without FACS obstruction or gangrene E66.01 Morbid (severe) obesity due to excess calories Office Visit 01/31/2019 9:30a Surgical Reynaldo Petersen K42.9 [facility] Har[facility] MD, without FACS obstruction or gangrene R10.11 Right upper quadrant pain E66.01 Morbid (severe) obesity due to excess calories Office Visit 01/25/2019 2:00p [facility] Internal Nikolay Ackerman K42.9 [facility] without obstruction or gangrene I10 Essential (primary) hypertension E11.9 Type 2 diabetes mellitus without complications Office Visit 01/06/2019 2:00p [facility] Internal Nikolay Ackerman R10.13 Epigastric pain [facility]/22/[facility] 10:00a [facility] Internal Nikolay Ackerman E11.9 Type 2 diabetes Jonn [facility] M.[facility]. [facility] I10 Essential (primary) hypertension G47.33 Obstructive sleep apnea (adult) (pediatric) R07.89 Other chest pain Assessments Date Code Description Provider 05/24/2019 E11.9 Type 2 diabetes mellitus without Nikolay Minor M.D. complications 05/24/2019 I10 Essential (primary) hypertension Nikolay Minor M.D. 05/24/2019 G47.33 Obstructive sleep apnea (adult) Nikolay Minor M.D. (pediatric) 05/24/2019 K21.9 Gastro-esophageal reflux disease Nikolay Minor M.D. without esophagitis 05/11/2019 L02.232 Carbuncle of back [any part, except Sanjay Bravo MD buttock] 05/09/2019 L02.232 Carbuncle of back [any part, except [facility] buttock] 05/09/2019 Z48.01 Encounter for change or removal of [facility] surgical wound dressing 05/05/2019 L03.312 Cellulitis of back [any part except [facility] buttock] 05/05/2019 L02.232 Carbuncle of back [any part, except [facility] buttock] 05/05/2019 Z48.01 Encounter for change or removal of [facility] surgical wound dressing 05/03/2019 L03.312 Cellulitis of back [any part except Reynaldo [place] MD, [facility] buttock] 05/03/2019 L02.232 Carbuncle of back [any part, except Reynaldo Har[place] MD, FACS buttock] 04/20/2019 E11.9 Type 2 diabetes mellitus without Nikolay Minor M.D. complications 04/20/2019 I10 Essential (primary) hypertension Nikolay Minor M.D. 04/20/2019 G47.33 Obstructive sleep apnea (adult) Nikolay Minor M.D. (pediatric) 04/20/2019 L02.222 Furuncle of back [any part, except [facility] 04/20/2019 Z79.84 terminal superintendent (current) use of oral Nikolay Minor M.D. hypoglycemic drugs 04/20/2019 F17.210 Nicotine dependence, cigarettes, Nikolay Minor M.D. uncomplicated 04/14/2019 K42.9 Umbilical hernia without obstruction or Reynaldo Harrington MD , FACS gangrene 04/14/2019 E66.01 Morbid (severe) obesity due to excess Reynaldo Harrington MD, FACS calories 04/06/2019 K42.9 Umbilical hernia without obstruction or Ashley Paris, [employer] gangrene 04/06/2019 K42.9 Umbilical hernia without obstruction or Reynaldo Har[place] MD , FACS gangrene 03/29/2019 K42.9 Umbilical hernia without obstruction or Reynaldo Harrington MD , FACS gangrene 03/29/2019 E66.01 Morbid (severe) obesity due to excess Reynaldo Harrington MD, FACS calories 03/01/2019 K42.9 Umbilical hernia without obstruction or Reynaldo Harrington MD , FACS gangrene 01/31/2019 K42.9 Umbilical hernia without obstruction or Reynaldo Harrington MD , FACS gangrene 01/31/2019 R10.11 Right upper quadrant pain Reynaldo Harrington MD, FACS 01/31/2019 E66.01 Morbid (severe) obesity due to excess Reynaldo Harrington MD, FACS calories 01/25/2019 K42.9 Umbilical hernia without obstruction or Nikolay Minor M.D. gangrene 01/25/2019 I10 Essential (primary) hypertension Nikolay Minor M.D. 01/25/2019 E11.9 Type 2 diabetes mellitus without Nikolay Minor M.D. complications 01/21/2019 I10 Essential (primary) hypertension Nurse Visit A 01/06/2019 R10.13 Epigastric pain Nikolay Minor M.D. 12/22/2018 E11.9 Type 2 diabetes mellitus without Nikolay Minor M.D. complications 12/22/2018 I10 Essential (primary) hypertension Nikolay Minor M.D. 12/22/2018 G47.33 Obstructive sleep apnea (adult) Nikloay Minor M.D. (pediatric) 12/22/2018 R07.89 Other chest pain Nikolay Minor M.D. Plan of Treatment Future Appointment(s):07/27/2019 11:40 am - Nikolay Minor M.D. at [facility] Nikolay Minor M.D.E11.9 Type 2 diabetes mellitus without complicationsComments:On all his Rx for the past month ; home sugars in mid 100s per pt; recheck fasting labsReferral:[facility], NutritionistFollow up:2 months with home sugar and BP readings. Bring in BP machine as well.I10 Essential (primary) hypertensionNew Medication:Amlodipine Besylate 5 mg - 1 by mouth every dayComments:BPs still up ; pt was on Amlodipine with no problems in 2013; resume 5 mg daily with his Lisinopril and record home BPs for [id number] Obstructive sleep apnea (adult) (pediatric)Comments:On CPAP; recheck overnight oximetry on the CPAPK21.9 Gastro- esophageal reflux disease without esophagitisComments:No sx with Rx Functional Status Description No Information Available Mental Status Description No Information Available Referrals Refer to Reason for Referral Status Appt Date [facility] Diabetic, weight loss diet Sent education [address] [facility] [place] [address] [phone] [facility] (+) sleep apnea; pt having trouble with CPAP Sent [address] [place] [address] [phone] Reynaldo Har[place] MD New painful ? furuncle on R lower back Sent 05/03/[address] [facility] [address] [phone]
--- OUTSIDE RECORDS SUMMARY | 2019-06-15 09:53 | XMS REPORT | Continuity of Care Document ---
:1985 External Reference #:[id number] Author Name [facility] (transmitted by agent of provider Charity Zazueta) Address [address] [facility] [place] [address] Care Team Providers Name Role Phone Sebastian Connelly MD - Ophthalmology Care Team Information Scall[facility] Raker [phone] Nikolay Minor III, MD - Internal Care Team Information [facility] Medicine [facility] - Sleep Disorder Care Team Information Scallop Raker [phone] Diagnostic Reynaldo Harrington MD - Surgery Care Team Information Scallop Raker [phone] Problems Active Problems Provider Date Morbid obesity Barb Banuelos M.D. Onset: 03/16/2012 Tobacco user Barb Banuelos M.D. Onset: 12/15/2013 Type 2 diabetes mellitus Renato Mccray M.D. Onset: 12/15/2017 Essential hypertension Barb Banuelos M.D. Onset: 01/05/2018 Sleep apnea Onset: Social History Type Date Description Comments Sex Unknown Tobacco Use Start: Unknown currently smokes 1/2 Pack Daily Smoking Status Reviewed: 05/05/19 currently smokes 1/2 Pack Daily ETOH Use Drinks 2 Alcoholic Beverages Per Week Recreational Drug Use ritalin, oxycodone, Quit 2004 hydrocodone, ephedra with speed Tobacco Use Start: Unknown Patient is a current 15 cigarettes per day smoker, smokes every day Recreational Drug Use Denies Drug Use Exercise Type/Frequency Exercises sporadically once a week Allergies, Adverse Reactions, Alerts Active Allergies Reaction Severity Comments Date Amoxicillin Anaphylaxis 03/16/2012 Penicillin Anaphylaxis 03/16/2012 Tegaderm rash 04/14/2019 Medications Active Medications SIG Qnty Indications Ordering Date Provider Bactrim DS 1 by mouth twice 14tabs L02.232 Reynaldo Harrington, 05/03/2019 800-160mg a day LUCAS DOMINGUEZ Tablets Ozempic 1mg weekly 1.500ml E11.9 Nikolay EDevaughn 04/20/2019 1mg/Dose Yamileth Minor Solution Pen-Inject Percocet every 6 hours 30tabs Nikolay Ackerman 01/23/2019 5-325mg Yamileth Minor Tablets Lisinopril 1 by mouth every 30tabs I10 Nikolay Ackerman 12/22/2018 20mg day Yamileth Minor Tablets Omeprazole take 1 capsule by 30caps [...] Contour Next check sugar twice 1units E11.9 [place] 12/15/2017 Blood Glucose daily before Yamileth Mccray Monitoring System breakfast and 1 hour after dinner w/Device Kit Wilber Microlet check cs twice 100units E11.9 [place] 12/15/2017 Lancets daily and as Yamileth Mccray Misc needed Ibuprofen 1 by mouth three Unknown 800mg times a day as Tablets needed History Medications Percocet 1 tablet by mouth 14tabs K42.9 Reynaldo Harrington, 03/29/2019 - 5-325mg every 4 hours as LUCAS DOMINGUEZ Unknown Tablets needed pain Ozempic 0.5 mg weekly 4.5ml E11.9 Nikolay Ackerman 01/25/2019 - 0.25Or maintenance dose tila Minor M.D. 04/20/2019 0.5 mg/Dose Solution Pen-Inject Glucotrol Twice Daily Unknown 01/06/2019 - 5mg 01/25/2019 Tablets Prinivil Every Day Unknown 01/06/2019 - 10mg 01/25/2019 Tablets Ozempic 0.5 mg weekly 1.500ml E11.9 Nikolay Ackerman 11/22/2018 - 0lucio Minor M.D. 01/25/2019 0.5 mg/Dose Solution Pen-Inject Immunizations CPT Code Status Date Vaccine Lot # [id number] Given 12/15/2013 Tdap - Tetanus/Diptheria/Acellular Pertussis Vital Signs Date Vital Result Comment 05/05/2019 12:49pm Heart Rate 90 /min Respiratory Rate 16 /min Body Temperature 98.4 F 05/03/2019 11:12am Heart Rate 80 /min BP Systolic 142 mmHg BP Diastolic 90 mmHg Respiratory Rate 18 /min Body Temperature 98.1 F Results Test Date Facility Test Result H/L Range Note Wound 05/03/2019 [facility] Wound/Misc SEE RESULT 1 Culture/Sensi [address] [place] [address] Stain [phone] Laboratory test 04/20/2019 [facility] Hemoglobin A1c 14.0 High 5-7 finding Urine Microalbumin 04/20/2019 [facility] Ur Microalbumin < 15.0 mg/L Random [address] (mg/L) [place] [address] [phone] Urine Creatinine 37.38 mg/dL Urine Microalbumin/Creatinine TNP <31 2 Laboratory test 04/06/2019 [facility] Point of 218 mg/dL High 70-100 [address] [place] [address] [phone] Laboratory test 04/06/2019 [facility] Point of 232 mg/dL High 70-100 [address] [place] [address] [phone] Laboratory test 04/06/2019 [facility] Point of 327 mg/dL High 70-100 [address] [place] [address] [phone] Laboratory test 01/23/2019 [facility] Troponin-I 0.00 <0.04 [address] (TnI) ng/[place] [address] [phone] Laboratory test 01/23/2019 [facility] TSH (Thyroid 1.48 Normal 0.34-5.[address] Stim Horm) mcIU/[place] [address] [phone] Pathologist Review (SEE NOTE) 7 CKMB 01/23/2019 [facility] CKMB ng/mL 0.7 ng/mL Normal 0.6- 6.[address] [place] [address] [phone] Laboratory test 01/23/2019 [facility] Magnesium 2.6 mg/dL Normal 1.9-2.[address] [place] [address] [phone] Creatine Kinase(CK) 76 U/L Normal 10-223 Troponin-I (TnI) 0.00 ng/mL <0.04 8 Comp Metabolic 01/23/2019 [facility] Sodium 135 mmol/L Normal 135-[address] [place] [address] [phone] Chloride 102 mmol/L Normal 101-111 Co2 Carbon [...] Ast 23 U/L Normal 13-39 Manual 01/23/2019 [facility] Immature 1.0 % Normal 0-[address] [place] [address] [phone] Neutrophil % 67.0 % Band % 1.0 % Normal 0-8 Lymphocytes % 21.0 % Monocytes % 6.0 % Eosinophils % 2.0 % Basophil % 1.0 % Variant Lymph % 2.0 % Normal 0-6 RBC Morphology Normal Normal Laboratory test 01/23/2019 [facility] B-Type 38 pg/mL <=[address] [place] [address] Peptide BNP [phone] CBC Auto Diff 01/23/2019 [facility] White Blood 10.9 High 3.5- 10.[address] Count 10^3/[place] [address] [phone] Red Blood Count 5.68 10^6/uL High 4.18-5.48 [...] Blood Cells % 0.1 Laboratory test 01/23/2019 [facility] Lactic Acid 1.1 mmol/L Normal 0.5-2.0 [address] [place] [address] [phone] Comp Metabolic 01/06/2019 [facility] Sodium 135 mmol/L Normal 135-[address] [place] [address] [phone] Potassium 4.1 mmol/L Normal 3.5-5.0 Chloride 101 [...] Egfr 142.1 >60 11 Laboratory test 01/06/2019 [facility] Lipase 49 U/L Normal 11.0-82.[address] [place] [address] [phone] C Reactive Protein 10.73 mg/L High <8.01 Lactic Acid 1.6 mmol/L Normal 0.5-2.0 12 Urinalysis Profile 01/06/2019 [facility] Urine Color Yellow [address] [place] [address] [phone] Urine Appearance Clear Urine Specific [place] 1.030 Normal 1.010-1.030 Urine pH 5.0 Normal 5-9 Urine Urobilinogen Negative Negative Urine Ketones Trace Abnormal Negative Urine Protein Negative Negative Urine Leukocytes Negative Negative Urine Blood Negative Negative Urine Nitrite Negative Negative Urine Bilirubin Negative Negative Urine Glucose 3+(>=500 mg/dL) Abnormal Negative CBC Auto 01/06/2019 [facility] White Blood 10.0 10^3/uL Normal 3.5-10.[address] [place] [address] [phone] Red Blood Count 5.46 10^6/uL Normal 4.18-5.48 [...] Blood Cells % 0.2 Laboratory test 12/13/2018 [facility] Lactic Acid 1.0 mmol/L Normal 0.5-2.0 [address] [place] [address] [phone] Troponin-I (TnI) 0.00 ng/mL <0.04 14 Potassium Redraw 4.3 mmol/L Normal 3.5-5.0 Ast Redraw 34 U/L Normal 13-39 Laboratory 12/13/2018 [facility] D Dimer < 200 Normal Less 15 test finding [address] Quantitative ng/[place] [address] 230 [phone] CBC Auto Diff 12/13/2018 [facility] White Blood 8.9 Normal 3.5 -10. [address] Count 10^3/uL 8 [place], [place] [id number] [phone] Red Blood Count 5.27 10^6/uL Normal 4.18-5.48 [...] Blood Cells % 0.1 Comp Metabolic 12/13/2018 [facility] Sodium 135 mmol/L Normal 135-[address] [place] [address] [phone] Chloride 102 mmol/L Normal 101-111 Co2 Carbon [...] TNP U/L 13-39 18 Laboratory test 12/13/2018 [facility] Troponin-I (TnI) 0.00 ng/ mL <0.04 [address] [place] [address] [phone] Lactic Acid 2.6 mmol/L Critical high 0.5-2.0 20 Laboratory test finding 11/22/2018 [facility] In House Hemoglobin A1c 8.3 High 5 -7 1 SEE RESULT BELOW Name: CARLOS DEL ANGEL : [address]: Reynaldo Harrington MD Acct: [id number] Unit: [id number] AGE: 34 Location: [facility] Re05/03/19 SEX: M Status: REG REF SPEC: [id number] JAMILAH: 05/03/[address]: Reynaldo Harrington MD REQ: [id number] RECD: 05/03/19 STATUS: COMP _ SOURCE: BACK SPDESC: ORDERED: Culture Stain COMMENTS: [id number] Specimen Description back abscess Procedure Result Reported Site Wound/Misc Gram Stain Final 05/03/19- 1554 ML 2+ Epithelial Cells 4+ Neutrophils 4+ Gram Positive Cocci Wound/Misc Culture Final 05/05/19- 0921 ML Organism 1 NORMAL LAURA Quantity 2+ * ML - Main Lab . END OF REPORT DEPARTMENT OF PATHOLOGY, [address] [place] [address] Dio England M.D. Director [facility] # [id number] 2 Unable to calculate due to low microalbumin 3 Manager Of Exhibitions And Collections: [id number] Manager Of Exhibitions And Collections: [id number] Manager Of Exhibitions And Collections: [id number] 6 Troponin-I testing on Plasma Separator Tubes (PST) has a known false positive rate of 0.20-0.40%. All positive troponins reflex immediately to secondary confirmatory testing. Using the [employer] DxI 800 Access Immunoassay systems, the 99th percentile upper reference limit was demonstrated to be < 0.03 ng/mL. [address] England 8 Troponin-I testing on Plasma Separator Tubes (PST) has a known false positive rate of 0.20-0.40%. All positive troponins reflex immediately to secondary confirmatory testing. Using the [employer] DxI 800 Access Immunoassay systems, the 99th [...] 5 Kidney failure <15 (or dialysis) 10 [facility] Severe Sepsis and Septic Shock Management [...] 5 Kidney failure <15 (or dialysis) 12 [facility] Severe Sepsis and Septic Shock Management Bundle Measure requires all lactic acids initially measuring >2.0 mmol/L be repeated. 13 [facility] Severe Sepsis and Septic Shock Management Bundle Measure requires all lactic acids initially measuring >2.0 mmol/L be repeated. 14 Troponin-I testing on Plasma Separator Tubes (PST) has a known false positive rate of 0.20-0.40%. All positive troponins reflex immediately to secondary confirmatory testing. Using the [employer] DxI 800 Access Immunoassay systems, the 99th [...] immediately to secondary confirmatory testing. Using the [employer] DxI 800 Access Immunoassay systems, the 99th percentile upper reference limit was demonstrated to be < 0.03 ng/mL. 20 Critical Result LACT:2.6 Called to DONI at: 14:47:52 by:NICKY Read back by:DONI [facility] Severe Sepsis and Septic Shock Management Bundle Measure requires all lactic acids initially measuring >2.0 mmol/L be repeated. Procedures Date Code Description Status 05/03/2019 72761 I&D Of Abscess Complicated Completed 04/06/2019 41979 Repair Hernia Umbilical > 5 Yrs, Reducible Completed 04/06/2019 72572 Repair Hernia Umbilical > 5 Yrs, Reducible Completed Medical Devices Description No Information Available Encounters Type Date Location Provider Dx Diagnosis Office Visit 04/20/2019 [facility] Austin Ackerman E11.9 Type 2 diabetes 11:40a Jonn - Ernst Minor M.D. mellitus without complications I10 Essential (primary) hypertension G47.33 Obstructive sleep apnea (adult) (pediatric) L02.222 Furuncle of back [any part, except buttock] Z79.84 [facility] (current) use of oral hypoglycemic drugs F17.210 Nicotine dependence, cigarettes, uncomplicated Office Visit 03/29/2019 8:30a Surgical Reynaldo Petersen K42.9 [facility] MD Len, without FACS obstruction or gangrene E66.01 Morbid (severe) obesity due to excess calories Office Visit 01/31/2019 9:30a Surgical Reynaldo P. K42.9 [facility] Kristina Harrington MD, without FACS obstruction or gangrene R10.11 Right upper quadrant pain E66.01 Morbid (severe) obesity due to excess calories Office Visit 01/25/2019 2:00p [facility] Internal Nikolay Ackerman K42.9 [facility] without obstruction or gangrene I10 Essential (primary) hypertension E11.9 Type 2 diabetes mellitus without complications Office Visit 01/06/2019 2:00p [facility] Internal Nikolay Ackerman R10.13 Epigastric pain Jonn Minor M.D. Ccmob Office Visit 12/22/2018 10:00a [facility] Internal Nikolay Ackerman E11.9 Type 2 diabetes Jonn Minor M.D. mellitus without Ccmob complications I10 Essential (primary) hypertension G47.33 Obstructive sleep apnea (adult) (pediatric) R07.89 Other chest pain Office Visit 11/22/2018 4:00p [facility] Internal Nikolay Ackerman E11.9 Type 2 diabetes Jonn Minor M.D. mellitus without Ccmob complications I10 Essential (primary) hypertension G47.33 Obstructive sleep apnea (adult) (pediatric) Assessments Date Code Description Provider 05/05/2019 L03.312 Cellulitis of back [any part except [facility] buttock] 05/05/2019 L02.232 Carbuncle of back [any part, except [facility] buttock] 05/05/2019 Z48.01 Encounter for change or removal of [facility] surgical wound dressing 05/03/2019 L03.312 Cellulitis of back [any part except Reynaldo Harrington MD, [facility] buttock] 05/03/2019 L02.232 Carbuncle of back [any part, except Reynaldo Harrington MD, [facility] buttock] 04/20/2019 E11.9 Type 2 diabetes mellitus without Nikolay Minor M.D. complications 04/20/2019 I10 Essential (primary) hypertension Nikolay Minor M.D. 04/20/2019 G47.33 Obstructive sleep apnea (adult) Nikolay Minor M.D. (pediatric) 04/20/2019 L02.222 Furuncle of back [any part, except Nikolay Minor M.D. [facility]] 04/20/2019 Z79.84 [employer] (current) use of oral Nikolay Minor M.D. hypoglycemic drugs 04/20/2019 F17.210 Nicotine dependence, cigarettes, Nikolay Minor M.D. uncomplicated 04/14/2019 K42.9 Umbilical hernia without obstruction or Reynaldo Harrington MD , FACS gangrene 04/14/2019 E66.01 Morbid (severe) obesity due to excess Reynaldo Harrington MD, FACS calories 04/06/2019 K42.9 Umbilical hernia without obstruction or Ashley Paris, [employer]EC[employer]ING [employer]GER gangrene 04/06/2019 K42.9 Umbilical hernia without obstruction [...] M.D. 12/22/2018 G47.33 Obstructive sleep apnea (adult) Nikolay Minor M.D. (pediatric) 12/22/2018 R07.89 Other chest pain Nikolay Minor M.D. 11/22/2018 E11.9 Type 2 diabetes mellitus without Nikolay Minor M.D. complications 11/22/2018 I10 Essential (primary) hypertension Nikolay Minor M.D. 11/22/2018 G47.33 Obstructive sleep apnea (adult) Nikolay Minor M.D. (pediatric) Plan of Treatment Future Appointment(s):05/24/2019 11:40 am - Nikolay Minor M.D. at [facility] - Reynaldo Harrington MD, FACSL03.312 Cellulitis of back [any part except buttock]L02.232 Carbuncle of back [any part , except buttock]New Medication:Bactrim DS 800-160 mg - 1 by mouth twice a dayComments:Packing change and glucose control are all that is needed. I do not believe this is a sebaceous cyst that warrants any additional excision to prevent recurrence.Follow up: with nursing for packing change.Instructions:Instruction sheet given Functional Status Description No Information Available Mental Status Description No Information Available Referrals Refer to Reason for Referral Status Appt Date [facility] Sleep Clinic (+) sleep apnea; pt having trouble with CPAP Sent [address] [place] [address] [phone] Reynaldo Harrington MD New painful ? furuncle on R lower back Sent 05/03/[address] [facility] [address] [phone] [facility] Healthy Living Diabetic, weight loss diet education Sent need to send letter [address] [place] [address] [phone]
--- OUTSIDE RECORDS SUMMARY | 2019-06-15 09:53 | XMS REPORT | Continuity of Care Document ---
:1985 External Reference #:[id number] Author Name [facility] (transmitted by agent of provider Charity Zazueta) Address [address] [place] [address] Care Team Providers Name Role Phone Sebastian Connelly MD - Ophthalmology Care Team Information Calender Supervisor Nikolay Minor III, MD - Internal Care Team Information Calender Supervisor Medicine [facility] - Sleep Disorder Care Team Information Calender Supervisor Diagnostic Reynaldo Harrington MD - Surgery Care Team Information Calender Supervisor [phone] Problems Active Problems Provider Date Morbid obesity Barb Banuelos M.D. Onset: 03/16/2012 Tobacco user Barb Banuelos M.D. Onset: 12/15/2013 Type 2 diabetes mellitus Renato Mccray M.D. Onset: 12/15/2017 Essential hypertension Barb Banuelos M.D. Onset: 01/05/2018 Sleep apnea Onset: Social History Type Date Description Comments Sex Unknown Tobacco Use Start: Unknown currently smokes 1/2 Pack Daily Smoking Status Reviewed: 05/03/19 currently smokes 1/2 Pack Daily ETOH Use [...] E11.9 Nikolay Ackerman 11/22/2018 500mg a day Yamileht Minor Tablets Freestyle Lite Test test once a day 100units E11.9 Nikolay Ackerman 11/22/2018 or as directed Yamileth Minor Strips Glipizide take 1 tab twice 60tabs E11.9 Nikolay Ackerman 12/25/2017 5mg Tablets a day Yamileth Minor Wilber Contour Next check sugar twice 1units E11.9 [place] 12/15/2017 Blood Glucose daily before Yamileth Mccray Monitoring System breakfast and 1 hour after dinner w/Device Kit Wilber Microlet check cs twice 100units E11.9 [place] 12/15/2017 Lancets daily and as Yamileth Mccray [...] CPT Code Status Date Vaccine Lot # [id number] Given 12/15/2013 Tdap - Tetanus/Diptheria/Acellular Pertussis Vital Signs Date Vital Result Comment 05/03/2019 11:12am Heart Rate 80 /min BP Systolic 142 mmHg BP Diastolic 90 mmHg Respiratory Rate 18 /min Body Temperature 98.1 F 04/20/2019 11:56am Height 71 inches 5'11" Weight 269.38 lb Heart Rate 94 /min BP Systolic 152 mmHg BP Diastolic 93 mmHg Body Temperature 98.5 F O2 % BldC Oximetry 97 % BMI (Body Mass Index) 37.6 kg/m2 Results Test Date Facility Test Result H/L Range Note Wound 05/03/2019 [facility] Wound/Misc SEE RESULT 1 Culture/Sensi [address] [place] [address] Stain [phone] Laboratory test 04/20/2019 [facility] Hemoglobin A1c 14.0 High 5-7 finding Urine Microalbumin 04/20/2019 [facility] Ur Microalbumin < 15.0 mg/L Random [address] (mg/L) [place], [place] [id number] [phone] Urine Creatinine 37.38 mg/dL Urine Microalbumin/Creatinine TNP <31 2 Laboratory test 04/06/2019 [facility] Point of 218 mg/dL High 70-100 [address] Care Glucose [place], [place] [id number] [phone] Laboratory test 04/06/2019 [facility] Point of 232 mg/dL High 70-100 [address] [address] [phone] Laboratory test 04/06/2019 [facility] Point of 327 mg/dL High 70-100 [address] [address] [phone] Laboratory test 01/23/2019 [facility] Troponin-I 0.00 <0.04 [address] (TnI) ng/[place] [address] [phone] Laboratory test 01/23/2019 [facility] TSH (Thyroid 1.48 Normal 0.34-5.[address] Stim Horm) mcIU/[place] [address] [phone] Pathologist Review (SEE NOTE) 7 CKMB 01/23/2019 [facility] CKMB ng/mL 0.7 ng/mL Normal 0.6- [address] [place] [address] [phone] Laboratory test 01/23/2019 [facility] Magnesium 2.6 mg/dL Normal 1.9-2[place]7 [place] [address] [phone] Creatine Kinase(CK) 76 U/L Normal 10-223 Troponin-I (TnI) 0.00 ng/mL <0.04 8 Comp Metabolic 01/23/2019 [facility] Sodium 135 mmol/L Normal 135-[address] [place] [address] [phone] Chloride 102 mmol/L Normal 101-111 Co2 Carbon [...] Ast 23 U/L Normal 13-39 Manual 01/23/2019 [facility] Immature 1.0 % Normal 0-[address] [place] [address] [phone] Neutrophil % 67.0 % Band % 1.0 % Normal 0-8 Lymphocytes % 21.0 % Monocytes % 6.0 % Eosinophils % 2.0 % Basophil % 1.0 % Variant Lymph % 2.0 % Normal 0-6 RBC Morphology Normal Normal Laboratory test 01/23/2019 [facility] B-Type 38 pg/mL <=[address] [place] [address] Peptide BNP [phone] CBC Auto Diff 01/23/2019 [facility] White Blood 10.9 High 3.5- 10.[address] Count 10^3/[place] [address] [phone] Red Blood Count 5.68 10^6/uL High 4.18-5.48 [...] Blood Cells % 0.1 Laboratory test 01/23/2019 [facility] Lactic Acid 1.1 mmol/L Normal 0.5-2.0 [address] [place] [address] [phone] Comp Metabolic 01/06/2019 [facility] Sodium 135 mmol/L Normal 135-[address] [place] [address] [phone] Potassium 4.1 mmol/L Normal 3.5-5.0 Chloride 101 [...] Egfr 142.1 >60 11 Laboratory test 01/06/2019 [facility] Lipase 49 U/L Normal 11.0-82.[address] [place] [address] [phone] C Reactive Protein 10.73 mg/L High <8.01 Lactic Acid 1.6 mmol/L Normal 0.5-2.0 12 Urinalysis Profile 01/06/2019 [facility] Urine Color Yellow [address] [place] [address] [phone] Urine Appearance Clear Urine Specific [place] 1.030 Normal 1.010-1.030 Urine pH 5.0 Normal 5-9 Urine Urobilinogen Negative Negative Urine Ketones Trace Abnormal Negative Urine Protein Negative Negative Urine Leukocytes Negative Negative Urine Blood Negative Negative Urine Nitrite Negative Negative Urine Bilirubin Negative Negative Urine Glucose 3+(>=500 mg/dL) Abnormal Negative CBC Auto 01/06/2019 [facility] White Blood 10.0 10^3/uL Normal 3.5-10.[address] [place] [address] [phone] Red Blood Count 5.46 10^6/uL Normal 4.18-5.48 [...] Blood Cells % 0.2 Laboratory test 12/13/2018 [facility] Lactic Acid 1.0 mmol/L Normal 0.5-2.0 [address] [place] [address] [phone] Troponin-I (TnI) 0.00 ng/mL <0.04 14 Potassium Redraw 4.3 mmol/L Normal 3.5-5.0 Ast Redraw 34 U/L Normal 13-39 Laboratory 12/13/2018 [facility] D Dimer < 200 Normal Less 15 test finding [address] Quantitative ng/[place] [address] [phone] CBC Auto Diff 12/13/2018 [facility] White Blood 8.9 Normal 3.5 -10. [address] Count 10^3/uL 8 [place], [place] [id number] [phone] Red Blood Count 5.27 10^6/uL Normal 4.18-5.48 [...] Blood Cells % 0.1 Comp Metabolic 12/13/2018 [facility] Sodium 135 mmol/L Normal 135-145 Panel [address] [place] [address] [phone] Chloride 102 mmol/L Normal 101-111 Co2 Carbon [...] TNP U/L 13-39 18 Laboratory test 12/13/2018 [facility] Troponin-I (TnI) 0.00 ng/ mL <0.04 19 finding [address] [place] [address] [phone] Lactic Acid 2.6 mmol/L Critical high 0.5-2.0 20 Laboratory test finding 11/22/2018 [facility] In House Hemoglobin A1c 8.3 High 5 -7 1 SEE RESULT BELOW Name: CARLOS DEL ANGEL : [address]: Reynaldo Harrington MD Acct: [id number] Unit: [id number] AGE: 34 Location: [facility] Re05/03/19 SEX: M Status: REG REF SPEC: [id number] JAMILAH: 05/03/19-[address]: Reynaldo Harrington MD REQ: [id number] RECD: 05/03/19 STATUS: COMP _ SOURCE: BACK SPDESC: ORDERED: Culture Stain COMMENTS: [id number] Specimen Description back abscess Procedure Result Reported Site Wound/Misc Gram Stain Final 05/03/19- 1554 ML 2+ Epithelial Cells 4+ Neutrophils 4+ Gram Positive Cocci Wound/Misc Culture Final 05/05/19- 0921 ML Organism 1 NORMAL LAURA Quantity 2+ * ML - Main Lab . END OF REPORT DEPARTMENT OF PATHOLOGY, [address] [place] [address] Dio England M.D. Director [facility] # [id number] 2 Unable to calculate due to low microalbumin 3 Bell Valet: [id number] [facility]: [id number] [place]: [id number] 6 Troponin-I testing on Plasma Separator Tubes (PST) has a known false positive rate of 0.20-0.40%. All positive troponins reflex immediately to secondary confirmatory testing. Using the [employer] DxI 800 Access Immunoassay systems, the 99th percentile upper reference limit was demonstrated to be < 0.03 ng/mL. [address] England 8 Troponin-I testing on Plasma Separator Tubes (PST) has a known false positive rate of 0.20-0.40%. All positive troponins reflex immediately to secondary confirmatory testing. Using the [employer] Mi [employer]os[employer] DxI 800 Access Immunoassay systems, the 99th [...] 5 Kidney failure <15 (or dialysis) 10 [facility] Severe Sepsis and Septic Shock Management Bundle [...] 5 Kidney failure <15 (or dialysis) 12 [facility] Severe Sepsis and Septic Shock Management Bundle Measure requires all lactic acids initially measuring >2.0 mmol/L be repeated. 13 [facility] Severe Sepsis and Septic Shock Management Bundle Measure requires all lactic acids initially measuring >2.0 mmol/L be repeated. 14 Troponin-I testing on Plasma Separator Tubes (PST) has a known false positive rate of 0.20-0.40%. All positive troponins reflex immediately to secondary confirmatory testing. Using the [employer] DxI 800 Access Immunoassay systems, the 99th [...] immediately to secondary confirmatory testing. Using the [employer] DxI 800 Access Immunoassay systems, the 99th percentile upper reference limit was demonstrated to be < 0.03 ng/mL. 20 Critical Result LACT:2.6 Called to DONI at: 14:47:52 by:[id number] Read back by:DONI [facility] Severe Sepsis and Septic Shock Management Bundle Measure requires all lactic acids initially measuring >2.0 mmol/L be repeated. Procedures Date Code Description Status 05/03/2019 66958 I&D Of Abscess Complicated Completed 04/06/2019 35269 Repair Hernia Umbilical > 5 Yrs, Reducible Completed 04/06/2019 40228 Repair Hernia Umbilical > 5 Yrs, Reducible Completed Medical Devices Description No Information Available Encounters Type Date Location Provider Dx Diagnosis Office Visit 04/20/2019 Kristina Ackerman E11.9 Type 2 diabetes 11:40a Jonn - Ernst Minor M.D. 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 F17.210 Nicotine dependence, cigarettes, uncomplicated Office Visit 03/29/2019 8:30a Surgical Reynaldo Petersen K42.9 [facility] Kristina Harrington MD, without FACS obstruction or gangrene E66.01 Morbid (severe) obesity due to excess calories Office Visit 01/31/2019 9:30a Surgical Reynaldo Petersen K42.9 [facility] MD Len, without FACS obstruction or gangrene R10.11 Right upper quadrant pain E66.01 Morbid (severe) obesity due to excess calories Office Visit 01/25/2019 2:00p [facility] Internal Nikolay Ackerman K42.9 [facility] Yam[facility]th Minor without obstruction or gangrene I10 Essential (primary) hypertension E11.9 Type 2 diabetes mellitus without complications Office Visit 01/06/2019 2:00p [facility] Internal Nikolay Ackerman R10.13 Epigastric pain Jonn Minor M.D. Ccmob Office Visit 12/22/2018 10:00a [facility] Internal Nikolay Ackerman E11.9 Type 2 diabetes Jonn Minor M.D. mellitus without Ccmob complications I10 Essential (primary) hypertension G47.33 Obstructive sleep apnea (adult) (pediatric) R07.89 Other chest pain Office Visit 11/22/2018 4:00p [facility] Internal Nikolay Ackerman E11.9 Type 2 diabetes Jonn Minor M.D. mellitus without Ccmob complications I10 Essential (primary) hypertension G47.33 Obstructive sleep apnea (adult) (pediatric) Assessments Date Code Description Provider 05/03/2019 L03.312 Cellulitis of back [any part except Reynaldo Harrington MD, [facility] buttock] 05/03/2019 L02.232 Carbuncle of back [any part, except Reynaldo Harrington MD, [facility] buttock] 04/20/2019 E11.9 Type 2 diabetes mellitus without Nikolay Minor M.D. complications 04/20/2019 I10 Essential (primary) hypertension Nikolay Minor M.D. 04/20/2019 G47.33 Obstructive sleep apnea (adult) Nikolay Minor M.D. (pediatric) 04/20/2019 L02.222 Furuncle of back [any part, except Nikolay Minor M.D. 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 hypoglycemic drugs 04/20/2019 F17.210 Nicotine dependence, cigarettes, Nikolay Minor M.D. uncomplicated 04/14/2019 K42.9 Umbilical hernia without obstruction or Reynaldo Harrington MD , FACS gangrene 04/14/2019 E66.01 Morbid (severe) obesity due to excess Reynaldo Harrington MD, FACS calories 04/06/2019 K42.9 Umbilical hernia without obstruction or Ashley Paris, OFFICER [employer] gangrene 04/06/2019 K42.9 Umbilical hernia without obstruction [...] Minor M.D. (pediatric) Plan of Treatment Future Appointment(s):05/11/2019 3:45 pm - Sanjay Bravo MD at [facility]05/09/2019 10:00 am - [facility] at [facility]05/24/2019 11:40 am - Nikolay Minor M.D. at [facility]2019 - Reynaldo Harrington MD, FACSL03.312 Cellulitis of back [any part except buttock]L02.232 Carbuncle of back [any part, except buttock] New Medication:Bactrim DS 800-160 mg - 1 by mouth twice a dayComments:Packing change and glucose control are all that is needed. I do not believe this is a sebaceous cyst that warrants any additional excision to prevent recurrence.Follow up: with nursing for packing change.Instructions: Instruction sheet given Functional Status Description No Information Available Mental Status Description No Information Available Referrals Refer to Reason for Referral Status Appt Date [facility] (+) sleep apnea; pt having trouble with CPAP Sent [address] [place] [address] [phone] Reynaldo Harrington MD New painful ? furuncle on R lower back Sent 05/03/[address] [facility] [address] [phone] [facility] Healthy Living Diabetic, weight loss diet education Sent need to send letter [address] [place] [address] [phone]
--- OUTSIDE RECORDS SUMMARY | 2019-06-15 09:53 | XMS REPORT | Continuity of Care Document ---
:1985 External Reference #:[id number] Author Name Nikolay Minor M.D. (transmitted by agent of provider Maureen Simon ) Address [address], [place] [address] Care Team Providers Name Role Phone Sebastian Connelly MD - Ophthalmology Care Team Information Field Services Manager Nikolay Minor III, MD - Internal Care Team Information Field Services Manager Medicine [facility] [place] [place] [facility] - Sleep Disorder Care Team Information Field Services Manager Diagnostic Reynaldo Harrington MD - Surgery Care Team Information Field Services Manager [phone] Problems Active Problems Provider Date Morbid obesity [...] Pt reports day he is in a [place] smoking study Recreational Drug Use Denies Drug [...] Contour Next check sugar twice 1units E11.9 [place] 12/15/2017 Blood Glucose daily before Yamileth Mccray Monitoring System breakfast and 1 hour after dinner w/Device Kit Wilber Microlet check cs twice 100units E11.9 [place] 12/15/2017 Lancets daily and as [facility] History Medications Bactrim DS 1 by [...] 30tabs Nikolay Ackerman 01/23/2019 - 5-325mg Yamileth Minor 05/24/2019 Tablets Glucotrol Twice Daily Unknown 01/06/2019 - 5mg 01/25/2019 Tablets Prinivil Every Day Unknown 01/06/2019 - 10mg 01/25/2019 Tablets Immunizations CPT Code Status Date Vaccine Lot # [id number] Given 12/15/2013 Tdap - Tetanus/Diptheria/Acellular Pertussis Vital [...] Test Result H/L Range Note Wound 05/03/2019 [facility] Wound/Misc SEE RESULT 1 Culture/Sensi [address] [place] [address] Stain [phone] Laboratory test 04/20/2019 Research Associate Professor In House Hemoglobin A1c 14.0 High 5-7 finding Urine Microalbumin 04/20/2019 [facility] Ur Microalbumin < 15.0 mg/L Random [address] (mg/L) [place] [address] [phone] Urine Creatinine 37.38 mg/dL Urine Microalbumin/Creatinine TNP <31 2 Laboratory test 04/06/2019 [facility] Point of 218 mg/dL High 70-100 [address] [place] [address] [phone] Laboratory test 04/06/2019 [facility] Point of 232 mg/dL High 70-100 [address] [place] [address] [phone] Laboratory test 04/06/2019 [facility] Point of 327 mg/dL High 70-100 [address] [place] [address] [phone] Laboratory test 01/23/2019 [facility] Troponin-I 0.00 <0.04 [address] (TnI) ng/[place] [address] [phone] Laboratory test 01/23/2019 [facility] TSH (Thyroid 1.48 Normal 0.34-5.[address] Stim Horm) mcIU/[place] [address] [phone] Pathologist Review (SEE NOTE) 7 CKMB 01/23/2019 [facility] CKMB ng/mL 0.7 ng/mL Normal 0.6- 6.[address] [place] [address] [phone] Laboratory test 01/23/2019 [facility] Magnesium 2.6 mg/dL Normal 1.9-2.[address] [place] [address] [phone] Creatine Kinase(CK) 76 U/L Normal 10-223 Troponin-I (TnI) 0.00 ng/mL <0.04 8 Comp Metabolic 01/23/2019 [facility] Sodium 135 mmol/L Normal 135-[address] [place] [address] [phone] Chloride 102 mmol/L Normal 101-111 Co2 Carbon [...] Ast 23 U/L Normal 13-39 Manual 01/23/2019 [facility] Immature 1.0 % Normal 0-[address] [place] [address] [phone] Neutrophil % 67.0 % Band % 1.0 % Normal 0-8 Lymphocytes % 21.0 % Monocytes % 6.0 % Eosinophils % 2.0 % Basophil % 1.0 % Variant Lymph % 2.0 % Normal 0-6 RBC Morphology Normal Normal Laboratory test 01/23/2019 [facility] B-Type 38 pg/mL <=[address] [place] [address] Peptide BNP [phone] CBC Auto Diff 01/23/2019 [facility] White Blood 10.9 High 3.5- 10.[address] Count 10^3/[place] [address] [phone] Red Blood Count 5.68 10^6/uL High 4.18-5.48 [...] Blood Cells % 0.1 Laboratory test 01/23/2019 [facility] Lactic Acid 1.1 mmol/L Normal 0.5-2.0 [address] [place] [address] [phone] Comp Metabolic 01/06/2019 [facility] Sodium 135 mmol/L Normal 135-[address] [place] [address] [phone] Potassium 4.1 mmol/L Normal 3.5-5.0 Chloride 101 [...] Egfr 142.1 >60 11 Laboratory test 01/06/2019 [facility] Lipase 49 U/L Normal 11.0-82.[address] [place] [address] [phone] C Reactive Protein 10.73 mg/L High <8.01 Lactic Acid 1.6 mmol/L Normal 0.5-2.0 12 Urinalysis Profile 01/06/2019 [facility] Urine Color Yellow [address] [place] [address] [phone] Urine Appearance Clear Urine Specific [place] 1.030 Normal 1.010-1.030 Urine pH 5.0 Normal 5-9 Urine Urobilinogen Negative Negative Urine Ketones Trace Abnormal Negative Urine Protein Negative Negative Urine Leukocytes Negative Negative Urine Blood Negative Negative Urine Nitrite Negative Negative Urine Bilirubin Negative Negative Urine Glucose 3+(>=500 mg/dL) Abnormal Negative CBC Auto 01/06/2019 [facility] White Blood 10.0 10^3/uL Normal 3.5-10.[address] [place] [address] [phone] Red Blood Count 5.46 10^6/uL Normal 4.18-5.48 [...] Blood Cells % 0.2 Laboratory test 12/13/2018 [facility] Lactic Acid 1.0 mmol/L Normal 0.5-2.0 [address] [place] [address] [phone] Troponin-I (TnI) 0.00 ng/mL <0.04 14 Potassium Redraw 4.3 mmol/L Normal 3.5-5.0 Ast Redraw 34 U/L Normal 13-39 Laboratory 12/13/2018 [facility] D Dimer < 200 Normal Less 15 test finding [address] Quantitative ng/[place] [address] 230 [phone] CBC Auto Diff 12/13/2018 [facility] White Blood 8.9 Normal 3.5 -10. [address] Count 10^3/uL 8 [place], [place] [address] [phone] Red Blood Count 5.27 10^6/uL Normal 4.18-5.48 [...] Blood Cells % 0.1 Comp Metabolic 12/13/2018 [facility] Sodium 135 mmol/L Normal 135-[address] [place] [address] [phone] Chloride 102 mmol/L Normal 101-111 Co2 Carbon [...] TNP U/L 13-39 18 Laboratory test 12/13/2018 [facility] Troponin-I (TnI) 0.00 ng/ mL <0.04 [address] [place] [address] [phone] Lactic Acid 2.6 mmol/L Critical high 0.5-2.0 20 1 SEE RESULT BELOW Name: CARLOS DEL ANGEL : [address]: Reynaldo Harrington MD Acct: [id number] Unit: [id number] AGE: 34 Location: [facility] Re05/03/19 SEX: M Status: REG REF SPEC: [id number] JAMILAH: 05/03/[address]: Reynaldo Harrington MD REQ: [id number] RECD: 05/03/19 STATUS: COMP _ SOURCE: BACK SPDESC: ORDERED: Culture Stain COMMENTS: [id number] Specimen Description back abscess Procedure Result Reported Site Wound/Misc Gram Stain Final 05/03/19- 1554 ML 2+ Epithelial Cells 4+ Neutrophils 4+ Gram Positive Cocci Wound/Misc Culture Final 05/05/19- 09 ML Organism 1 NORMAL LAURA Quantity 2+ * ML - Main Lab . END OF REPORT DEPARTMENT OF PATHOLOGY, [address] [place] [address] Dio England M.D. Director [facility] # [id number] 2 Unable to calculate due to low microalbumin 3 Ed Tech: [id number] 4 Ed Tech: [id number] 5 Ed Tech: [id number] 6 Troponin-I testing on Plasma Separator Tubes (PST) has a known false positive rate of 0.20-0.40%. All positive troponins reflex immediately to secondary confirmatory testing. Using the PinMyPet DxI 800 Access Immunoassay systems, the 99th percentile upper reference limit was demonstrated to be < 0.03 ng/mL. [address] England 8 Troponin-I testing on Plasma Separator Tubes (PST) has a known false positive rate of 0.20-0.40%. All positive troponins reflex immediately to secondary confirmatory testing. Using the UnicUltromex DxI 800 Access Immunoassay systems, the 99th [...] 5 Kidney failure <15 (or dialysis) 10 [facility] Severe Sepsis and Septic Shock [...] 5 Kidney failure <15 (or dialysis) 12 [facility] Severe Sepsis and Septic Shock Management Bundle Measure requires all lactic acids initially measuring >2.0 mmol/L be repeated. 13 [facility] Severe Sepsis and Septic Shock Management Bundle Measure requires all lactic acids initially measuring >2.0 mmol/L be repeated. 14 Troponin-I testing on Plasma Separator Tubes (PST) has a known false positive rate of 0.20-0.40%. All positive troponins reflex immediately to secondary confirmatory testing. Using the PinMyPet DxI 800 Access Immunoassay systems, the 99th [...] immediately to secondary confirmatory testing. Using the PinMyPet DxI 800 Access Immunoassay systems, the 99th percentile upper reference limit was demonstrated to be < 0.03 ng/mL. 20 Critical Result LACT:2.6 Called to DONI at: 14:47:52 by:NICKY Read back by:DONI [facility] Severe Sepsis and Septic Shock Management Bundle Measure requires all lactic acids initially measuring >2.0 mmol/L be repeated. Procedures Date Code Description Status 05/03/2019 19487 I&D Of Abscess Complicated Completed 04/06/2019 70531 Repair Hernia Umbilical > 5 Yrs, Reducible Completed 04/06/2019 01782 Repair Hernia Umbilical > 5 Yrs, Reducible Completed Medical Devices Description No Information Available Encounters Type Date Location Provider Dx Diagnosis Office Visit 04/20/2019 Kristina Ackerman E11.9 Type 2 diabetes 11:40a Medicine - Ernst Minor M.D. 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 F17.210 Nicotine dependence, cigarettes, uncomplicated Office Visit 03/29/2019 8:30a Surgical Reynaldo Petersen K42.9 [facility] Kristina Harrington MD, without FACS obstruction or gangrene E66.01 Morbid (severe) obesity due to excess calories Office Visit 01/31/2019 9:30a Randy Petersen K42.9 [facility] Kristina Harrington MD, without FACS obstruction or gangrene R10.11 Right upper quadrant pain E66.01 Morbid (severe) obesity due to excess calories Office Visit 01/25/2019 2:00p [facility] Nikolay Ackerman K42.9 Umbilical hernia Jonn - Ernst Minor M.D. without obstruction or gangrene I10 Essential (primary) hypertension E11.9 Type 2 diabetes mellitus without complications Office Visit 01/06/2019 2:00p [facility] Nikolay Ackerman R10.13 Epigastric pain [facility] 12/22/2018 10:00a [facility] Nikolay Ackerman E11.9 Type 2 diabetes Jonn Minor M.D. mellitus without [facility] complications I10 Essential (primary) hypertension G47.33 Obstructive [...] back [any part, except Sanjay Bravo MD [facility]] 05/09/2019 L02.232 Carbuncle of back [any part, [...] back [any part except Reynaldo Harrington MD, [facility]] 05/03/2019 L02.232 Carbuncle of back [any part, except Reynaldo Harrington MD, FACS [facility]] 04/20/2019 E11.9 Type 2 diabetes mellitus without Nikolay Minor M.D. complications 04/20/2019 I10 Essential (primary) hypertension Nikolay Minor M.D. 04/20/2019 G47.33 Obstructive sleep apnea (adult) Nikolay Minor M.D. (pediatric) 04/20/2019 L02.222 Furuncle of back [any part, except Nikolay Minor M.D. 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 hypoglycemic drugs 04/20/2019 F17.210 Nicotine dependence, cigarettes, Nikolay Minor M.D. uncomplicated 04/14/2019 K42.9 Umbilical hernia without obstruction or Reynaldo Harrington MD , FACS gangrene 04/14/2019 E66.01 Morbid (severe) obesity due to excess Reynaldo Harrington MD, FACS calories 04/06/2019 K42.9 Umbilical hernia without obstruction or Ashley Paris, [employer] gangrene 04/06/2019 K42.9 Umbilical hernia without obstruction [...] 11:40 am - Nikolay Minor M.D. at [facility] - Nikolay Minor M.D.E11.9 Type 2 diabetes mellitus without complicationsComments:On all his Rx for the past month ; home sugars in mid 100s per pt; recheck fasting labsReferral:[facility], NutritionistFollow up:2 months with home sugar and BP readings. Bring in BP machine as well.I10 Essential (primary) hypertensionNew Medication:Amlodipine Besylate 5 mg - 1 by mouth every dayG47.33 Obstructive sleep apnea (adult) (pediatric)K21.9 Gastro-esophageal reflux disease without esophagitis Functional Status Description No Information Available Mental Status Description No Information Available Referrals Refer to Reason for Referral Status Appt Date [facility] Diabetic, weight loss diet Created education [address] [place], [place] [id number] [phone] [facility] [place] [place] [facility] (+) sleep apnea; pt having trouble with CPAP Sent [address] [id number] [phone] Reynaldo Harrington MD New painful ? furuncle on R lower back Sent 05/03/[address] [facility] [address] [phone]
--- OUTSIDE RECORDS SUMMARY | 2019-06-15 09:53 | XMS REPORT | Continuity of Care Document ---
:1985 External Reference #:[id number] Author Name Reynaldo Harrington MD, FACS (transmitted by agent of provider Isha Murrayong) Address [address] [place] [address] Care Team Providers Name Role Phone Sebastian Connelly MD - Ophthalmology Care Team Information Shoe Fitter [phone] Nikolay Minor III, MD - Internal Care Team Information Shoe Fitter [phone] Medicine [facility] - Sleep Disorder Care Team Information Shoe [place]itter Diagnostic Reynaldo Harrington MD - Surgery Care Team Information Shoe Fitter [phone] Problems Active Problems Provider Date Morbid obesity [...] Week Recreational Drug Use ritalin, oxycodone, Quit 2005 hydrocodone, ephedra with speed Tobacco Use Start: [...] test once a day 100units E11.9 Nikolay E. 11/22/2018 or as directed Yamileth Minor Strips Glipizide take 1 tab twice 60tabs E11.9 Nikolay Ackerman 12/25/2017 5mg Tablets a day Yamileth Minor Wilber Contour Next check sugar twice 1units E11.9 [place] 12/15/2017 Blood Glucose daily before Yamileth Mccray Monitoring System breakfast and 1 hour after dinner w/Device Kit Wilber Microlet check cs twice 100units E11.9 [place] 12/15/2017 Lancets daily and as Yamileth Mccray [...] CPT Code Status Date Vaccine Lot # [id number] Given 12/15/2013 Tdap - Tetanus/Diptheria/Acellular Pertussis Vital [...] Test Result H/L Range Note Laboratory test 04/20/2019 [facility] [employer] In House Hemoglobin A1c 14.0 High 5-7 finding Urine Microalbumin 04/20/2019 [facility] Ur Microalbumin < 15.0 mg/L Random [address] (mg/L) [place] [address] [phone] Urine Creatinine 37.38 mg/dL Urine Microalbumin/Creatinine TNP <31 1 Laboratory test 04/06/2019 [facility] Point of 218 mg/dL High 70-100 [address] [place] [address] [phone] Laboratory test 04/06/2019 [facility] Point of 232 mg/dL High 70-100 [address] [place] [address] [phone] Laboratory test 04/06/2019 [facility] Point of 327 mg/dL High 70-100 [address] [place] [address] [phone] Laboratory test 01/23/2019 [facility] Troponin-I 0.00 <0.04 [address] (TnI) ng/[place] [address] [phone] Laboratory test 01/23/2019 [facility] TSH (Thyroid 1.48 Normal 0.34-5.[address] Stim Horm) mcIU/[place] [address] [phone] Pathologist Review (SEE NOTE) 6 CKMB 01/23/2019 [facility] CKMB ng/mL 0.7 ng/mL Normal 0.6- 6.[address] [place] [address] [phone] Laboratory test 01/23/2019 [facility] Magnesium 2.6 mg/dL Normal 1.9-2.[address] [place] [address] [phone] Creatine Kinase(CK) 76 U/L Normal 10-223 Troponin-I (TnI) 0.00 ng/mL <0.04 7 Comp Metabolic 01/23/2019 [facility] Sodium 135 mmol/L Normal 135-[address] [place] [address] [phone] Chloride 102 mmol/L Normal 101-111 Co2 Carbon [...] Egfr Non- 115.6 >60 Egfr 139.9 >60 8 Potassium 4.2 mmol/L Normal 3.5-5.0 Anion Gap 8 mmol/L Normal 2-11 Ast 23 U/L Normal 13-39 Manual 01/23/2019 [facility] Immature 1.0 % Normal 0-[address] [place] [address] [phone] Neutrophil % 67.0 % Band % 1.0 % Normal 0-8 Lymphocytes % 21.0 % Monocytes % 6.0 % Eosinophils % 2.0 % Basophil % 1.0 % Variant Lymph % 2.0 % Normal 0-6 RBC Morphology Normal Normal Laboratory test 01/23/2019 [facility] B-Type 38 pg/mL <=[address] [place] [address] Peptide BNP [phone] CBC Auto Diff 01/23/2019 [facility] White Blood 10.9 High 3.5- 10.[address] Count 10^3/[place] [address] [phone] Red Blood Count 5.68 10^6/uL High 4.18-5.48 [...] Blood Cells % 0.1 Laboratory test 01/23/2019 [facility] Lactic Acid 1.1 mmol/L Normal 0.5-2.0 [address] [place] [address] [phone] Comp Metabolic 01/06/2019 [facility] Sodium 135 mmol/L Normal 135-[address] [place] [address] [phone] Potassium 4.1 mmol/L Normal 3.5-5.0 Chloride 101 [...] Egfr Non- 117.4 >60 Egfr 142.1 >60 10 Laboratory test 01/06/2019 [facility] Lipase 49 U/L Normal 11.0-82.[address] [place] [address] [phone] C Reactive Protein 10.73 mg/L High <8.01 Lactic Acid 1.6 mmol/L Normal 0.5-2.0 11 Urinalysis Profile 01/06/2019 [facility] Urine Color Yellow [address] [place] [address] [phone] Urine Appearance Clear Urine Specific Rigby 1.030 Normal 1.010-1.030 Urine pH 5.0 Normal 5-9 Urine Urobilinogen Negative Negative Urine Ketones Trace Abnormal Negative Urine Protein Negative Negative Urine Leukocytes Negative Negative Urine Blood Negative Negative Urine Nitrite Negative Negative Urine Bilirubin Negative Negative Urine Glucose 3+(>=500 mg/dL) Abnormal Negative CBC Auto 01/06/2019 [facility] White Blood 10.0 10^3/uL Normal 3.5-10.[address] [place] [address] [phone] Red Blood Count 5.46 10^6/uL Normal 4.18-5.48 [...] Blood Cells % 0.2 Laboratory test 12/13/2018 [facility] Lactic Acid 1.0 mmol/L Normal 0.5-2.0 [address] [place] [address] [phone] Troponin-I (TnI) 0.00 ng/mL <0.04 13 Potassium Redraw 4.3 mmol/L Normal 3.5-5.0 Ast Redraw 34 U/L Normal 13-39 Laboratory 12/13/2018 [facility] D Dimer < 200 Normal Less 14 test finding [address] Quantitative ng/[place] [address] [phone] CBC Auto Diff 12/13/2018 [facility] White Blood 8.9 Normal 3.5 -10. [address] Count 10^3/uL 8 [place], [place] [id number] [phone] Red Blood Count 5.27 10^6/uL Normal 4.18-5.48 [...] Blood Cells % 0.1 Comp Metabolic 12/13/2018 [facility] Sodium 135 mmol/L Normal 135-145 Panel [address] [place] [address] [phone] Chloride 102 mmol/L Normal 101-111 Co2 Carbon [...] Egfr Non- 117.4 >60 Egfr 142.1 >60 15 Potassium TNP mmol/L 3.5-5.0 16 Anion Gap 11 mmol/L Normal 2-11 Ast TNP U/L 13-39 17 Laboratory test 12/13/2018 [facility] Troponin-I (TnI) 0.00 ng/ mL <0.04 18 finding [address] [place] [address] [phone] Lactic Acid 2.6 mmol/L Critical high 0.5-2.0 19 Laboratory test finding 11/22/2018 [facility] [address] In House Hemoglobin A1c 8.3 High 5 -7 1 Unable to calculate due to low microalbumin 2 Ep Specialist: [id number] Ep Specialist: [id number] Ep Specialist: [id number] 5 Troponin-I testing on Plasma Separator Tubes (PST) has a known false positive rate of 0.20-0.40%. All positive troponins reflex immediately to secondary confirmatory testing. Using the [employer] DxI 800 Access Immunoassay systems, the 99th percentile upper reference limit was demonstrated to be < 0.03 ng/mL. [address] England 7 Troponin-I testing on Plasma Separator Tubes (PST) has a known false positive rate of 0.20-0.40%. All positive troponins reflex immediately to secondary confirmatory testing. Using the [employer] DxI 800 Access Immunoassay systems, the 99th percentile upper reference limit was demonstrated to be < 0.03 ng/mL. 8 Because ethnic data is not always [...] 5 Kidney failure <15 (or dialysis) 9 [facility] Severe Sepsis and Septic Shock Management Bundle Measure requires all lactic acids initially measuring >2.0 mmol/L be repeated. 10 Because ethnic data is not always [...] 5 Kidney failure <15 (or dialysis) 11 [facility] Severe Sepsis and Septic Shock Management Bundle Measure requires all lactic acids initially measuring >2.0 mmol/L be repeated. 12 [facility] Severe Sepsis and Septic Shock Management Bundle Measure requires all lactic acids initially measuring >2.0 mmol/L be repeated. 13 Troponin-I testing on Plasma Separator Tubes (PST) has a known false positive rate of 0.20-0.40%. All positive troponins reflex immediately to secondary confirmatory testing. Using the [employer] DxI 800 Access Immunoassay systems, the 99th percentile upper reference limit was demonstrated to be < 0.03 ng/mL. 14 Please note: The following may produce a false positive D Dimer test: - Rheumatoid factor greater than 60 IU/ml - Plasma hemoglobin greater than 0.05 gm/dl - Bilirubin greater than 50 mg/dl - Lipids greater than 1000 mg/dl - FDP greater than 20 ug/ml 15 Because ethnic data is not always [...] 5 Kidney failure <15 (or dialysis) 16 Specimen Hemolyzed. Result may not be valid. Unable to report test result due to hemolysis. 17 Unable to report test result due to hemolysis. 18 Troponin-I testing on Plasma Separator Tubes (PST) has a known false positive rate of 0.20-0.40%. All positive troponins reflex immediately to secondary confirmatory testing. Using the [employer] DxI 800 Access Immunoassay systems, the 99th percentile upper reference limit was demonstrated to be < 0.03 ng/mL. 19 Critical Result LACT:2.6 Called to DONI at: 14:47:52 by:[id number] Read back by:DONI [facility] Severe Sepsis and Septic Shock Management Bundle Measure requires all lactic acids initially measuring >2.0 mmol/L be repeated. Procedures Date Code Description Status 05/03/2019 42502 I&D Abscess Simple Completed 04/06/2019 94476 Repair Hernia Umbilical > 5 Yrs, Reducible Completed 04/06/2019 50360 Repair Hernia Umbilical > 5 Yrs, Reducible Completed Medical Devices Description No Information Available Encounters Type Date Location Provider Dx Diagnosis Office Visit 04/20/2019 Kristina Ackerman E11.9 Type 2 diabetes 11:40a Jonn Minor M.D. mellitus without complications I10 Essential (primary) hypertension G47.33 Obstructive sleep apnea (adult) (pediatric) L02.222 Furuncle of back [any part, except buttock] Z79.84 long term (current) use of oral hypoglycemic drugs F17.210 [...] to excess calories Office Visit 01/25/2019 2:00p Kristina Ackerman K42.9 Umbilical hernia Jonn Minor M.D. without obstruction or gangrene I10 Essential (primary) hypertension E11.9 Type 2 diabetes mellitus without complications Office Visit 01/06/2019 2:00p Kristina Ackerman R10.13 Epigastric pain Jonn Minor M.D. [facility] Office Visit 12/22/2018 10:00a Kritsina Ackerman E11.9 Type 2 diabetes Jonn Minor M.D. mellitus without [facility] complications I10 Essential (primary) hypertension G47.33 Obstructive sleep apnea (adult) (pediatric) R07.89 Other chest pain Office Visit 11/22/2018 4:00p Kristina Ackerman E11.9 Type 2 diabetes Jonn Minor M.D. mellitus without [facility] complications I10 Essential (primary) hypertension G47.33 Obstructive sleep apnea (adult) (pediatric) Assessments Date Code Description Provider 05/03/2019 L03.312 Cellulitis of back [any part except Reynaldo Harrington MD, FACS buttock] 05/03/2019 L02.232 Carbuncle of back [any part, except Reynaldo Harrington MD, FACS buttock] 04/20/2019 E11.9 Type 2 diabetes mellitus without Nikolay Minor M.D. complications 04/20/2019 I10 Essential (primary) hypertension Nikolay Minor M.D. 04/20/2019 G47.33 Obstructive sleep apnea (adult) Nikolay Minor M.D. (pediatric) 04/20/2019 L02.222 Furuncle of back [any part, except Nikolay Minor M.D. buttock] 04/20/2019 Z79.84 jail (current) use of oral Nikolay Minor M.D. hypoglycemic drugs 04/20/2019 F17.210 Nicotine dependence, cigarettes, Nikolay Minor M.D. uncomplicated 04/14/2019 K42.9 Umbilical hernia without obstruction or Reynaldo Harrington MD , FACS gangrene 04/14/2019 E66.01 Morbid (severe) obesity due to excess Reynaldo Harrington MD, FACS calories 04/06/2019 K42.9 Umbilical hernia without obstruction or Ashley Paris, [employer] gangrene 04/06/2019 K42.9 Umbilical hernia without obstruction [...] Minor M.D. (pediatric) Plan of Treatment Future Appointment(s):05/05/2019 10:00 am - [facility] [address]05/24/2019 11:40 am - Nikolay Minor M.D. at [facility] [address] Internal Medicine - [facility]05/03/2019 - Reynaldo Harrington MD, FACSL03.312 Cellulitis of back [any part except buttock]L02.232 Carbuncle of back [any part, except buttock] New Medication:Bactrim DS 800-160 mg - 1 by mouth twice a dayFollow up: with nursing for packing change.Instructions:Instruction sheet given Functional Status Description No Information Available Mental Status Description No Information Available Referrals Refer to Dr Reason for Referral Status Appt Date [facility] (+) sleep apnea; pt having trouble with CPAP Sent [address] [place] [address] [phone] Reynaldo Harrington MD New painful ? furuncle on R lower back Sent 05/03/[address] [facility] [address] [phone] [facility] Diabetic, weight loss diet education Sent need to send letter [address] [facility] [address] [place], [place] [id number] [phone]
--- OUTSIDE RECORDS SUMMARY | 2019-06-15 09:53 | XMS REPORT | Continuity of Care Document ---
:1985 External Reference #:[id number] Author Name Sanjay Bravo MD (transmitted by agent of provider Charity Zazueta) Address [address] [address] Care Team Providers Name Role Phone Sebastian Connelly MD - Ophthalmology Care Team Information Stacker Operator [phone] Nikolay Minor III, MD - Internal Care Team Information Stacker Operator Medicine [facility] - Sleep Disorder Care Team Information Stacker Operator [phone] Diagnostic Reynaldo Harrington MD - Surgery Care Team Information Stacker Operator [phone] Problems Active Problems Provider Date Morbid obesity Barb Banuelos M.D. Onset: 03/16/2012 Tobacco user Barb Banuelos M.D. Onset: 12/15/2013 Type 2 diabetes mellitus Renato Mccray M.D. Onset: 12/15/2017 Essential hypertension Barb Banuelos M.D. Onset: 01/05/2018 Sleep apnea Onset: Social History Type Date Description Comments Sex Unknown Tobacco Use Start: Unknown currently smokes 1/2 Pack Daily Smoking Status Reviewed: 05/11/19 currently smokes 1/2 Pack Daily ETOH Use [...] Medications SIG Qnty Indications Ordering Date Provider Ozempic 1mg weekly 1.500ml E11.9 Nikolay E. 04/20/2019 1mg/Dose Yamileth Minor Solution Pen-Inject Percocet every 6 hours 30tabs Nikolay Ackerman 01/23/2019 5-325mg Yamileth Minor Tablets Lisinopril 1 by mouth every 30tabs I10 Nikolay Ackerman 12/22/2018 20mg day Yamileth Minor Tablets Omeprazole take 1 capsule by 30caps Nikolay Ackerman 12/22/2018 20mg mouth once daily Yamileth Minor Capsules DR Metformin HCL 2 by mouth twice 360tabs E11.9 Nikolay Devaughn 11/22/2018 500mg a day Yamileth Minor Tablets Freestyle Lite Test test once a day 100units E11.9 Nikolay E. 11/22/2018 or as directed Yamileth Minor Strips Glipizide take 1 tab twice 60tabs E11.9 Nikolay Devaughn 12/25/2017 5mg Tablets a day Yamileth Minor Wilber Contour Next check sugar twice 1units E11.9 [place] 12/15/2017 Blood Glucose daily before Yamileth Mccray Monitoring System breakfast and 1 hour after dinner w/Device Kit Wilber Microlet check cs twice 100units E11.9 [place] 12/15/2017 Lancets daily and as Ymaileth Mccray Misc needed Ibuprofen 1 by mouth three Unknown 800mg times a day as Tablets needed History Medications Bactrim DS 1 by mouth twice a 14tabs L02.232 Reynaldo Harrington, 05/03/2019 - day LUCAS DOMINGUEZ Unknown 800-160mg Tablets Percocet 1 tablet by mouth 14tabs K42.9 Reynaldo Harrington, 03/29/2019 - every 4 hours as LUCAS DOMINGUEZ Unknown 5-325mg Tablets needed pain Ozempic 0.5 mg weekly 4.5ml E11.9 Nikolay Ackerman 01/25/2019 - 0.25Or maintenance dose Yamileth Minor 04/20/2019 0.5 mg/Dose pen Solution Pen-Inject Glucotrol Twice Daily Unknown 01/06/2019 - 5mg 01/25/2019 Tablets Prinivil Every Day Unknown 01/06/2019 - 10mg 01/25/2019 Tablets Ozempic 0.5 mg weekly 1.500ml E11.9 Nikolay Ackerman 11/22/2018 - 0lucio Minor M.D. 01/25/2019 0.5 mg/Dose Solution Pen-Inject Immunizations CPT Code Status Date Vaccine Lot # [id number] Given 12/15/2013 Tdap - Tetanus/Diptheria/Acellular Pertussis Vital Signs Date Vital Result Comment 05/11/2019 3:46pm Heart Rate 96 /min Respiratory Rate 18 /min Body Temperature 98.9 F 05/09/2019 12:17pm Heart Rate 90 /min Respiratory Rate 16 /min Body Temperature 98.9 F Results Test Date Facility Test Result H/L Range Note Wound 05/03/2019 [facility] Wound/Misc SEE RESULT 1 Culture/Sensi [address] [place] [address] Stain [phone] Laboratory test 04/20/2019 [facility] Hemoglobin A1c 14.0 High 5-7 finding Urine Microalbumin 04/20/2019 [facility] Ur Microalbumin < 15.0 mg/L Random [address] (mg/L) [place], [place] [id number] [phone] Urine Creatinine 37.38 mg/dL Urine Microalbumin/Creatinine TNP <31 2 Laboratory test 04/06/2019 [facility] Point of 218 mg/dL High 70-100 [address] [place] [address] [phone] Laboratory test 04/06/2019 [facility] Point of 232 mg/dL High 70-100 [address] [address] [phone] Laboratory test 04/06/2019 [facility] Point of 327 mg/dL High 70-100 [address] [address] [phone] Laboratory test 01/23/2019 [facility] Troponin-I 0.00 <0.04 [address] (TnI) ng/[place] [address] [phone] Laboratory test 01/23/2019 [facility] TSH (Thyroid 1.48 Normal 0.34-5.[address] Stim Horm) mcIU/[place] [address] [phone] Pathologist Review (SEE NOTE) 7 CKMB 01/23/2019 [facility] CKMB ng/mL 0.7 ng/mL Normal 0.6- 6.[address] [place] [address] [phone] Laboratory test 01/23/2019 [facility] Magnesium 2.6 mg/dL Normal 1.9-2.[address] [place] [address] [phone] Creatine Kinase(CK) 76 U/L Normal 10-223 Troponin-I (TnI) 0.00 ng/mL <0.04 8 Comp Metabolic 01/23/2019 [facility] Sodium 135 mmol/L Normal 135-[address] [place] [address] [phone] Chloride 102 mmol/L Normal 101-111 Co2 Carbon [...] Ast 23 U/L Normal 13-39 Manual 01/23/2019 [facility] Immature 1.0 % Normal 0-[address] [place] [address] [phone] Neutrophil % 67.0 % Band % 1.0 % Normal 0-8 Lymphocytes % 21.0 % Monocytes % 6.0 % Eosinophils % 2.0 % Basophil % 1.0 % Variant Lymph % 2.0 % Normal 0-6 RBC Morphology Normal Normal Laboratory test 01/23/2019 [facility] B-Type 38 pg/mL <=[address] [place] [address] Peptide BNP [phone] CBC Auto Diff 01/23/2019 [facility] White Blood 10.9 High 3.5- 10.[address] Count 10^3/[place] [address] [phone] Red Blood Count 5.68 10^6/uL High 4.18-5.48 [...] Blood Cells % 0.1 Laboratory test 01/23/2019 [facility] Lactic Acid 1.1 mmol/L Normal 0.5-2.0 [address] [place] [address] [phone] Comp Metabolic 01/06/2019 [facility] Sodium 135 mmol/L Normal 135-[address] [place] [address] [phone] Potassium 4.1 mmol/L Normal 3.5-5.0 Chloride 101 [...] Egfr 142.1 >60 11 Laboratory test 01/06/2019 [facility] Lipase 49 U/L Normal 11.0-82.[address] [place] [address] [phone] C Reactive Protein 10.73 mg/L High <8.01 Lactic Acid 1.6 mmol/L Normal 0.5-2.0 12 Urinalysis Profile 01/06/2019 [facility] Urine Color Yellow [address] [place] [address] [phone] Urine Appearance Clear Urine Specific Harlan 1.030 Normal 1.010-1.030 Urine pH 5.0 Normal 5-9 Urine Urobilinogen Negative Negative Urine Ketones Trace Abnormal Negative Urine Protein Negative Negative Urine Leukocytes Negative Negative Urine Blood Negative Negative Urine Nitrite Negative Negative Urine Bilirubin Negative Negative Urine Glucose 3+(>=500 mg/dL) Abnormal Negative CBC Auto 01/06/2019 [facility] White Blood 10.0 10^3/uL Normal 3.5-10.[address] [place] [address] [phone] Red Blood Count 5.46 10^6/uL Normal 4.18-5.48 [...] Blood Cells % 0.2 Laboratory test 12/13/2018 [facility] Lactic Acid 1.0 mmol/L Normal 0.5-2.0 [address] [place] [address] [phone] Troponin-I (TnI) 0.00 ng/mL <0.04 14 Potassium Redraw 4.3 mmol/L Normal 3.5-5.0 Ast Redraw 34 U/L Normal 13-39 Laboratory 12/13/2018 [facility] D Dimer < 200 Normal Less 15 test finding [address] Quantitative ng/[place] [address] 230 [phone] CBC Auto Diff 12/13/2018 [facility] White Blood 8.9 Normal 3.5 -10. [address] Count 10^3/uL 8 [place], [place] [id number] [phone] Red Blood Count 5.27 10^6/uL Normal 4.18-5.48 [...] Blood Cells % 0.1 Comp Metabolic 12/13/2018 [facility] Sodium 135 mmol/L Normal 135-[address] [place] [address] [phone] Chloride 102 mmol/L Normal 101-111 Co2 Carbon [...] TNP U/L 13-39 18 Laboratory test 12/13/2018 [facility] Troponin-I (TnI) 0.00 ng/ mL <0.04 [address] [place] [address] [phone] Lactic Acid 2.6 mmol/L Critical high 0.5-2.0 20 Laboratory test finding 11/22/2018 [facility] Hemoglobin A1c 8.3 High 5 -7 1 SEE RESULT BELOW Name: CARLOS DEL ANGEL : [address]: Reynaldo Harrington MD Acct: [id number] Unit: [id number] AGE: 34 Location: [facility] Re05/03/19 SEX: M Status: REG REF SPEC: [id number] JAMILAH: 05/03/[address] [facility] [address]: Reynaldo Harrington MD REQ: [id number] RECD: 05/03/19 STATUS: COMP _ SOURCE: BACK SPDESC: ORDERED: Culture Stain COMMENTS: [id number] Specimen Description back abscess Procedure Result Reported Site Wound/Misc Gram Stain Final 05/03/19- 1554 ML 2+ Epithelial Cells 4+ Neutrophils 4+ Gram Positive Cocci Wound/Misc Culture Final 05/05/19- 920 ML Organism 1 NORMAL LAURA Quantity 2+ * ML - Main Lab . END OF REPORT DEPARTMENT OF PATHOLOGY, [address] [place] [address] Dio England M.D. Director [facility] # [id number] 2 Unable to calculate due to low microalbumin 3 Box Truck Driver: [id number] 4 Box Truck Driver: [id number] 5 Box Truck Driver: [id number] 6 Troponin-I testing on Plasma Separator Tubes (PST) has a known false positive rate of 0.20-0.40%. All positive troponins reflex immediately to secondary confirmatory testing. Using the [employer] DxI 800 Access Immunoassay systems, the 99th percentile upper reference limit was demonstrated to be < 0.03 ng/mL. [address] England 8 Troponin-I testing on Plasma Separator Tubes (PST) has a known false positive rate of 0.20-0.40%. All positive troponins reflex immediately to secondary confirmatory testing. Using the [employer] DxI 800 Access Immunoassay systems, the 99th [...] failure <15 (or dialysis) 10 [facility] Severe Sepsis and Septic Shock Management [...] failure <15 (or dialysis) 12 [facility] Severe Sepsis and Septic Shock Management Bundle Measure requires all lactic acids initially measuring >2.0 mmol/L be repeated. 13 [facility] Severe Sepsis and Septic Shock Management Bundle Measure requires all lactic acids initially measuring >2.0 mmol/L be repeated. 14 Troponin-I testing on Plasma Separator Tubes (PST) has a known false positive rate of 0.20-0.40%. All positive troponins reflex immediately to secondary confirmatory testing. Using the [employer] DxI 800 Access Immunoassay systems, the 99th [...] immediately to secondary confirmatory testing. Using the [employer] DxI 800 Access Immunoassay systems, the 99th percentile upper reference limit was demonstrated to be < 0.03 ng/mL. 20 Critical Result LACT:2.6 Called to DONI at: 14:47:52 by:NICKY Read back by:DONI [facility] Severe Sepsis and Septic Shock Management Bundle Measure requires all lactic acids initially measuring >2.0 mmol/L be repeated. Procedures Date Code Description Status 05/03/2019 08620 I&D Of Abscess Complicated Completed 04/06/2019 57745 Repair Hernia Umbilical > 5 Yrs, Reducible Completed 04/06/2019 72553 Repair Hernia Umbilical > 5 Yrs, Reducible Completed Medical Devices Description No Information Available Encounters Type Date Location Provider Dx Diagnosis Office Visit 04/20/2019 [facility] [place] Ackerman E11.9 Type 2 diabetes 11:40a Jonn - Ernst Minor M.D. mellitus without complications I10 Essential (primary) hypertension G47.33 Obstructive sleep apnea (adult) (pediatric) L02.222 Furuncle of back [any part, except buttock] Z79.84 meterman (current) use of oral hypoglycemic drugs F17.210 Nicotine dependence, cigarettes, uncomplicated Office Visit 03/29/2019 8:30a Surgical Reynaldo Petersen K42.9 [facility] Harrington MD, without FACS obstruction or gangrene E66.01 Morbid (severe) obesity due to excess calories Office Visit 01/31/2019 9:30a Randy Petersen K42.9 [facility] MD Len, without FACS obstruction or gangrene R10.11 Right upper quadrant pain E66.01 Morbid (severe) obesity due to excess calories Office Visit 01/25/2019 2:00p [facility] Nikolay Ackerman K42.9 [facility] without obstruction or gangrene I10 Essential (primary) hypertension E11.9 Type 2 diabetes mellitus without complications Office Visit 01/06/2019 2:00p [facility] Nikolay Ackerman R10.13 Epigastric pain Jonn - Yamileth Minor Ccmob Office Visit 12/22/2018 10:00a [facility] Nikolay Ackerman E11.9 Type 2 diabetes Jonn Minor M.D. mellitus without Ccmob complications I10 Essential (primary) hypertension G47.33 Obstructive sleep apnea (adult) (pediatric) R07.89 Other chest pain Office Visit 11/22/2018 4:00p [facility] Nikolay Ackerman E11.9 Type 2 diabetes Jonn Minor M.D. mellitus without Ccmob complications I10 Essential (primary) hypertension G47.33 Obstructive sleep apnea (adult) (pediatric) Assessments Date Code Description Provider 05/11/2019 L02.232 Carbuncle of back [any part, except [facility] 05/05/2019 L03.312 Cellulitis of back [any part except [facility] buttock] 05/05/2019 L02.232 Carbuncle of back [any part, except [facility] buttock] 05/05/2019 Z48.01 Encounter for change or removal of Nurse [facility] surgical wound dressing 05/03/2019 L03.312 Cellulitis of back [any part except Reynaldo Harrington MD, [facility]] 05/03/2019 L02.232 Carbuncle of back [any part, except Reynaldo Harrington MD, [facility]] 04/20/2019 E11.9 Type 2 diabetes mellitus without Nikolay Minor M.D. complications 04/20/2019 I10 Essential (primary) hypertension Nikolay Minor M.D. 04/20/2019 G47.33 Obstructive sleep apnea (adult) Nikolay Minor M.D. (pediatric) 04/20/2019 L02.222 Furuncle of back [any part, except Nikolay Minor M.D. buttock] 04/20/2019 Z79.84 meterman (current) use of oral Nikolay Minor M.D. hypoglycemic drugs 04/20/2019 F17.210 Nicotine dependence, cigarettes, Nikolay Minor M.D. uncomplicated 04/14/2019 K42.9 Umbilical hernia without obstruction or Reynaldo Harrington MD , FACS gangrene 04/14/2019 E66.01 Morbid (severe) obesity due to excess Reynaldo Harrington MD, FACS calories 04/06/2019 K42.9 Umbilical hernia without obstruction or Ashley Paris, SHANK [employer]PER gangrene 04/06/2019 K42.9 Umbilical hernia without obstruction [...] M.D. 12/22/2018 G47.33 Obstructive sleep apnea (adult) Nkiolay Minor M.D. (pediatric) 12/22/2018 R07.89 Other chest pain Nikolay Minor M.D. 11/22/2018 E11.9 Type 2 diabetes mellitus without Nikolay Minor M.D. complications 11/22/2018 I10 Essential (primary) hypertension Nikolay Minor M.D. 11/22/2018 G47.33 Obstructive sleep apnea (adult) Nikolay Minor M.D. (pediatric) Plan of Treatment Future Appointment(s):05/24/2019 11:40 am - [facility] Sanjay Bravo MDL02.232 Carbuncle of back [any part, except buttock]Follow up:None needed Remove packing on Thursday and apply antibiotic ointment daily for the next week Cover with band-aid until healed Call with any problems or concerns. Functional Status Description No Information Available Mental Status Description No Information Available Referrals Refer to Reason for Referral Status Appt Date [facility] (+) sleep apnea; pt having trouble with CPAP Sent [address] [place] [address] [phone] Reynaldo Harrington MD New painful ? furuncle on R lower back Sent 05/03/[address] [facility] [address] [phone] [facility] [place] Healthy Living Diabetic, weight loss diet education Sent need to send letter [address] [facility] [address] [place] [address] [phone]
--- OUTSIDE RECORDS SUMMARY | 2019-06-15 09:54 | XMS REPORT | Continuity of Care Document ---
:1985 External Reference #:[id number] Author Name Nikolay Minor M.D. (transmitted by agent of provider Josee Bautista) Address [address] [facility], [place] [address] Care Team Providers Name Role Phone Sebastian Connelly MD - Ophthalmology Care Team Information Office Nurse Nikolay Minor III, MD - Internal Care Team Information Office Nurse [phone] Medicine [facility] - Sleep Disorder Care Team Information Office Nurse [phone] Diagnostic Reynaldo Harrington MD - Surgery Care Team Information Office Nurse [phone] Problems Active Problems Provider Date Morbid obesity Barb Banuelos M.D. Onset: 03/16/2012 Tobacco user Barb Banuelos M.D. Onset: 12/15/2013 Type 2 diabetes mellitus Reanto Mccray M.D. Onset: 12/15/2017 Essential hypertension Barb Banuelos M.D. Onset: 01/05/2018 Sleep apnea Onset: Social History Type Date Description Comments Sex Unknown Tobacco Use Start: Unknown currently smokes 1/2 Pack Daily Smoking Status Reviewed: 04/20/19 currently smokes 1/2 Pack Daily ETOH Use [...] Provider Ozempic 1mg weekly 1.500ml E11.9 Nikolay Ackerman 04/20/2019 1mg/Dose Yamileth Minor Solution Pen-Inject Percocet every 6 hours 30tabs Nikolay Ackerman 01/23/2019 5-325mg Yamileth Minor Tablets Lisinopril 1 by mouth every 30tabs I10 Nikolya Ackerman 12/22/2018 20mg day Yamileth Minor Tablets [...] Contour Next check sugar twice 1units E11.9 [place] 12/15/2017 Blood Glucose daily before Yamileth Mccray Monitoring System breakfast and 1 hour after dinner w/Device Kit Wilber Microlet check cs twice 100units E11.9 [place] 12/15/2017 Lancets daily and as Yamileth Mccray Misc needed Ibuprofen 1 by mouth three Unknown 800mg times a day as Tablets needed History Medications Percocet 1 tablet by mouth 14tabs K42.9 Reynaldo Harrington, 03/29/2019 - 5-325mg every 4 hours as , LUCAS Unknown Tablets needed pain Ozempic 0.5 mg [...] CPT Code Status Date Vaccine Lot # [id number] Given 12/15/2013 Tdap - Tetanus/Diptheria/Acellular Pertussis Vital Signs Date Vital Result Comment 04/20/2019 11:56am Height 71 inches 5'11" Weight 269.38 lb Heart Rate 94 /min BP Systolic 152 mmHg BP Diastolic 93 mmHg Body Temperature 98.5 F O2 % BldC Oximetry 97 % BMI (Body Mass Index) 37.6 kg/m2 04/14/2019 9:00am Heart Rate 78 /min BP Systolic Sitting 130 mmHg BP Diastolic Sitting 84 mmHg Respiratory Rate 16 /min Body Temperature 97.8 F Results Test Date Facility Test Result H/L Range Note Laboratory test [facility] In House Hemoglobin A1c 14.0 High 5-7 [address] [facility] Point of [facility] 218 mg/dL High 70-100 1 finding [address] [place] [address] [phone] [facility] 232 mg/dL High 70-100 2 finding [address] [place] [address] [phone] [facility] 327 mg/dL High 70-100 3 finding [address] [place] [address] [phone] [facility] Troponin-I 0.00 ng/mL < 0.04 4 finding [address] (TnI) [place] [address] [phone] [facility] TSH (Thyroid 1.48 Normal 0.34-5.60 finding [address] Stim Horm) mcIU/[place] [address] [phone] Pathologist Review (SEE NOTE) 5 CKMB 01/23/2019 [facility] CKMB ng/mL 0.7 ng/mL Normal 0.6- 6.[address] [place] [address] [phone] Laboratory test 01/23/2019 [facility] Magnesium 2.6 mg/dL Normal 1.9-2.[address] [place] [address] [phone] Creatine Kinase(CK) 76 U/L Normal 10-223 Troponin-I (TnI) 0.00 ng/mL <0.04 6 Comp Metabolic 01/23/2019 [facility] Sodium 135 mmol/L Normal 135-[address] [place] [address] [phone] Chloride 102 mmol/L Normal 101-111 Co2 Carbon [...] Egfr Non- 115.6 >60 Egfr 139.9 >60 7 Potassium 4.2 mmol/L Normal 3.5-5.0 Anion Gap 8 mmol/L Normal 2-11 Ast 23 U/L Normal 13-39 Manual 01/23/2019 [facility] Immature 1.0 % Normal 0-9 Differential 101 [place] [address] [phone] Neutrophil % 67.0 % Band % 1.0 % Normal 0-8 Lymphocytes % 21.0 % Monocytes % 6.0 % Eosinophils % 2.0 % Basophil % 1.0 % Variant Lymph % 2.0 % Normal 0-6 RBC Morphology Normal Normal Laboratory test 01/23/2019 [facility] B-Type 38 pg/mL <=[address] [place] [address] Peptide BNP [phone] CBC Auto Diff 01/23/2019 [facility] White Blood 10.9 High 3.5- 10.[address] Count 10^3/[place] [address] [phone] Red Blood Count 5.68 10^6/uL High 4.18-5.48 [...] Blood Cells % 0.1 Laboratory test 01/23/2019 [facility] Lactic Acid 1.1 mmol/L Normal 0.5-2.0 8 finding [address] [place] [address] [phone] Comp Metabolic 01/06/2019 [facility] Sodium 135 mmol/L Normal 135-145 Panel 101 [place] [address] [phone] Potassium 4.1 mmol/L Normal 3.5-5.0 Chloride 101 [...] Egfr Non- 117.4 >60 Egfr 142.1 >60 9 Laboratory test 01/06/2019 [facility] Lipase 49 U/L Normal 11.0-82.[address] [place] [address] [phone] C Reactive Protein 10.73 mg/L High <8.01 Lactic Acid 1.6 mmol/L Normal 0.5-2.0 10 Urinalysis Profile 01/06/2019 [facility] Urine Color Yellow [address] [place] [address] [phone] Urine Appearance Clear Urine Specific [place] 1.030 Normal 1.010-1.030 Urine pH 5.0 Normal 5-9 Urine Urobilinogen Negative Negative Urine Ketones Trace Abnormal Negative Urine Protein Negative Negative Urine Leukocytes Negative Negative Urine Blood Negative Negative Urine Nitrite Negative Negative Urine Bilirubin Negative Negative Urine Glucose 3+(>=500 mg/dL) Abnormal Negative CBC Auto 01/06/2019 [facility] White Blood 10.0 10^3/uL Normal 3.5-10.[address] [place] [address] [phone] Red Blood Count 5.46 10^6/uL Normal 4.18-5.48 [...] Blood Cells % 0.2 Laboratory test 12/13/2018 [facility] Lactic Acid 1.0 mmol/L Normal 0.5-2.0 [address] [place], [place] [address] [phone] Troponin-I (TnI) 0.00 ng/mL <0.04 12 Potassium Redraw 4.3 mmol/L Normal 3.5-5.0 Ast Redraw 34 U/L Normal 13-39 Laboratory 12/13/2018 [facility] D Dimer < 200 Normal Less 13 test finding [address] Quantitative ng/[place] [address] [phone] CBC Auto Diff 12/13/2018 [facility] White Blood 8.9 Normal 3.5 -10. [address] Count 10^3/uL 8 [place], [place] [address] [phone] Red Blood Count 5.27 10^6/uL Normal 4.18-5.48 [...] Blood Cells % 0.1 Comp Metabolic 12/13/2018 [facility] Sodium 135 mmol/L Normal 135-145 Panel 101 [place] [address] [phone] Chloride 102 mmol/L Normal 101-111 Co2 Carbon [...] Egfr Non- 117.4 >60 Egfr 142.1 >60 14 Potassium TNP mmol/L 3.5-5.0 15 Anion Gap 11 mmol/L Normal 2-11 Ast TNP U/L 13-39 16 Laboratory test 12/13/2018 [facility] Troponin-I (TnI) 0.00 ng/ mL <0.04 17 finding [address] [place] [address] [phone] Lactic Acid 2.6 mmol/L Critical high 0.5-2.0 18 Laboratory test finding 11/22/2018 [facility] Hemoglobin A1c 8.3 High 5 -7 1 Patient Transition Specialist: [id number] 2 Patient Transition Specialist: [id number] 3 Patient Transition Specialist: [id number] 4 Troponin-I testing on Plasma Separator Tubes (PST) has a known false positive rate of 0.20-0.40%. All positive troponins reflex immediately to secondary confirmatory testing. Using the [employer] DxI 800 Access Immunoassay systems, the 99th percentile upper reference limit was demonstrated to be < 0.03 ng/mL. [address] England 6 Troponin-I testing on Plasma Separator Tubes (PST) has a known false positive rate of 0.20-0.40%. All positive troponins reflex immediately to secondary confirmatory testing. Using the [employer] DxI 800 Access Immunoassay systems, the 99th percentile upper reference limit was demonstrated to be < 0.03 ng/mL. 7 Because ethnic data is not always [...] 5 Kidney failure <15 (or dialysis) 8 [facility] Severe Sepsis and Septic Shock Management Bundle Measure requires all lactic acids initially measuring >2.0 mmol/L be repeated. 9 Because ethnic data is not always [...] 5 Kidney failure <15 (or dialysis) 10 [facility] Severe Sepsis and Septic Shock Management Bundle Measure requires all lactic acids initially measuring >2.0 mmol/L be repeated. 11 [facility] Severe Sepsis and Septic Shock Management Bundle Measure requires all lactic acids initially measuring >2.0 mmol/L be repeated. 12 Troponin-I testing on Plasma Separator Tubes (PST) has a known false positive rate of 0.20-0.40%. All positive troponins reflex immediately to secondary confirmatory testing. Using the [employer] DxI 800 Access Immunoassay systems, the 99th percentile upper reference limit was demonstrated to be < 0.03 ng/mL. 13 Please note: The following may produce a false positive D Dimer test: - Rheumatoid factor greater than 60 IU/ml - Plasma hemoglobin greater than 0.05 gm/dl - Bilirubin greater than 50 mg/dl - Lipids greater than 1000 mg/dl - FDP greater than 20 ug/ml 14 Because ethnic data is not always readily [...] 15-29 5 Kidney failure <15 (or dialysis) 15 Specimen Hemolyzed. Result may not be valid. Unable to report test result due to hemolysis. 16 Unable to report test result due to hemolysis. 17 Troponin-I testing on Plasma Separator Tubes (PST) has a known false positive rate of 0.20-0.40%. All positive troponins reflex immediately to secondary confirmatory testing. Using the [employer] DxI 800 Access Immunoassay systems, the 99th percentile upper reference limit was demonstrated to be < 0.03 ng/mL. 18 Critical Result LACT:2.6 Called to DONI at: 14:47:52 by:NICKY Read back by:DONI MARQUES Severe Sepsis and Septic Shock Management Bundle Measure requires all lactic acids initially measuring >2.0 mmol/L be repeated. Procedures Date Code Description Status 04/06/2019 11673 Repair Hernia Umbilical > 5 Yrs, Reducible Completed 04/06/2019 02625 Repair Hernia Umbilical > 5 Yrs, Reducible Completed Medical Devices Description No Information Available Encounters Type Date Location Provider Dx Diagnosis Office Visit 03/29/2019 Surgical Reynaldo Harrington, K42.9 Umbilical hernia 8:30a [facility] , FACS without obstruction or gangrene E66.01 Morbid (severe) obesity due to excess calories Office Visit 01/31/2019 9:30a Surgical Reynaldo Petersen K42.9 Umbilical hernia [facility] MD Len, without FACS obstruction or gangrene R10.11 Right upper quadrant pain E66.01 Morbid (severe) obesity due to excess calories Office Visit 01/25/2019 2:00p [facility] Internal Nikolay Ackerman K42.9 Umbilical hernia Medicine [facility] Yamileth Minor without obstruction or gangrene I10 Essential (primary) hypertension E11.9 Type 2 diabetes mellitus without complications Office Visit 01/06/2019 2:00p [facility] Internal Nikolay Ackerman R10.13 Epigastric pain Jonn Minor M.D. C[facility] Office Visit 12/22/2018 10:00a [facility] Internal Nikolay Ackerman E11.9 Type 2 diabetes Jonn Minor M.D. mellitus without [facility] complications I10 Essential (primary) hypertension G47.33 Obstructive sleep apnea (adult) (pediatric) R07.89 Other chest pain Office Visit 11/22/2018 4:00p [facility] Internal Nikolay Ackerman E11.9 Type 2 diabetes Jonn Minor M.D. mellitus without [facility]cmob complications I10 Essential (primary) hypertension G47.33 Obstructive sleep apnea (adult) (pediatric) Assessments Date Code Description Provider 04/20/2019 E11.9 Type 2 diabetes mellitus without Nikolay Minor M.D. complications 04/20/2019 I10 Essential (primary) hypertension Nikolay Minor M.D. 04/20/2019 G47.33 Obstructive sleep apnea (adult) Nikolay Minor M.D. (pediatric) 04/20/2019 L02.222 Furuncle of back [any part, except Nikolay Minor M.D. buttock] 04/14/2019 K42.9 Umbilical hernia without obstruction or Reynaldo Harrington MD , FACS gangrene 04/14/2019 E66.01 Morbid (severe) obesity due to excess Reynaldo Harrington MD, FACS calories 04/06/2019 K42.9 Umbilical hernia without obstruction or Ashley Paris NP gangrene 04/06/2019 K42.9 Umbilical hernia without obstruction [...] 11:40 am - Nikolay Minor M.D. at [facility] Internal Medicine - Ccmob04/20/2019 - Nikolay Minor M.D.E11.9 Type 2 diabetes mellitus without complicationsNew Medication:Ozempic 1 mg/Dose - 1mg weeklyNew Labs:Basic Metabolic Panel, Ordered: 04/20/19Follow up:1 month with home sugar and BP [id number] Essential (primary) [id number] Obstructive sleep apnea (adult) (pediatric)Referral:[facility], Sleep Disord,Diag/FwovyeY52.222 Furuncle of back [any part, except buttock]Referral: Reynaldo Harrington MD, Surgery,General Functional Status Description No Information Available Mental Status Description No Information Available Referrals Refer to Reason for Referral Status Appt Date [facility] (+) sleep apnea; pt having trouble with CPAP Created [address] [place] [address] [phone] Reynaldo Harrington MD New painful ? furuncle on R lower back Created [address] [facility] [address] [phone] [facility] Diabetic, weight loss diet education Sent need to send letter [address] [facility] [address] [place] [address] [phone]
[2019-06-15 10:09] VITALS: BP 158/104
--- NOTE | 2019-06-15 10:41 | UC ---
Throat Pain/Nasal Germain HPI - HPI Summary HPI Summary: Patient is a 34-year-old male presenting with for nasal congestion, headache, body aches, productive cough, wheezing since Thursday. Patient states that his symptoms have gotten worse despite symptomatic treatment. Also notes a couple episodes of emesis 2 days ago. Notes a fever of 100.5 at home the past few days. Also notes chills. Denies sore throat and ear pain. No shortness of breath and wheezing. Denies further nausea and vomiting. Denies abdominal pain and diarrhea. Denies history of asthma. Patient states he is still eating and drinking well. Patient is a current every day smoker. - History of Current Complaint Chief Complaint: UCGeneralIllness Stated Complaint: aches, AND NO ENERGY, WITH A COUGH Hx Obtained From: Patient Severity: Moderate Pain Intensity: 7 Pain Scale Used: 0-10 Numeric - Allergies/Home Medications Allergies/Adverse Reactions: Allergies Allergy/AdvReac Type Severity Reaction Status Date / Time amoxicillin Allergy Unknown Verified 06/15/19 10:09 Reaction Details Penicillins AdvReac Unknown Rash Verified 04/06/19 09:19 PMH/Surg Hx/FS Hx/Imm Hx Endocrine History: Diabetes Cardiovascular History: Hypertension - Surgical History Surgical History: Yes Surgery Procedure, Year, and Place: BROKEN GLASS REMOVED FROM FOREARMS 19 YRS AGO - Family History Known Family History: Positive: Diabetes Negative: Cardiac Disease, Hypertension - Social History Alcohol Use: Occasionally Alcohol Amount: 4 DRNKS/WEEK Substance Use Type: None Smoking Status (MU): Heavy Every Day Tobacco Smoker Type: Cigarettes Amount Used/How Often: 12 cig/day FOR 18 YRS Length of Time of Smoking/Using Tobacco: 18 YRS Have You Smoked in the Last Year: No Household Exposure Type: Cigarettes Review of Systems All Other Systems Reviewed And Are Negative: Yes Constitutional: Positive: Fever ENT: Positive: Nasal Discharge, Sinus Congestion, Sinus Pain/Tenderness. Negative: Sore Throat, Ear Ache Respiratory: Positive: Shortness Of Breath, Cough, Other - Wheezing Cardiovascular: Positive: Negative. Negative: Palpitations, Chest Pain Gastrointestinal: Positive: Vomiting. Negative: Abdominal Pain, Diarrhea, Nausea Musculoskeletal: Positive: Myalgia Neurological: Positive: Headache Physical Exam Triage Information Reviewed: Yes Appearance: No Pain Distress, Well-Nourished, Ill-Appearing Vital Signs: Initial Vital Signs Temp 98.5 F 06/15/19 10:05 Pulse 92 06/15/19 10:05 Resp 20 06/15/19 10:05 BP 158/104 06/15/19 10:05 Pulse Ox 97 06/15/19 10:05 Lab Results 06/15/19 Range/Units 10:56 Influenza A (Rapid) Negative (Negative) Influenza B (Rapid) Negative (Negative) Vital Signs Reviewed: Yes Eyes: Positive: Conjunctiva Clear ENT: Positive: Hearing grossly normal, Pharyngeal erythema, Nasal congestion, Nasal drainage - PND, TMs normal, Sinus tenderness, Uvula midline. Negative: Tonsillar swelling, Tonsillar exudate Neck exam: Normal Neck: Positive: Supple, Nontender, No Lymphadenopathy Respiratory: Positive: No respiratory distress, No accessory muscle use, Wheezing - Bilateral diffuse upper lobe wheezing, Expiration Cardiovascular Exam: Normal Cardiovascular: Positive: RRR Neurological: Positive: Alert Psychological: Positive: Age Appropriate Behavior Throat Pain/Nasal Course/Dx - Course Course Of Treatment: Patient received albuterol breathing treatment here with some relief. Discussed negative flu test with patient. Instructed to continue symptomatic treatment including use of inhaler for wheezing. Instructed to follow up with PCP if symptoms persist or to go to ED if shortness of breath worsens. Patient voiced understanding and agreed with treatment plan. - Differential Dx/Diagnosis Provider Diagnosis: Upper respiratory infection, Bronchitis, Wheezing on both sides of chest Discharge ED - Sign-Out/Discharge Documenting (check all that apply): Patient Departure All imaging exams completed and their final reports reviewed: No Studies - Discharge Plan Condition: Stable Disposition: HOME Referrals: Nikolay Minor MD [Primary Care Provider] - If Needed Additional Instructions: As discussed, your symptoms are most likely caused by a virus. Viruses do not respond to antibiotic treatment. Use the albuterol inhaler as directed for your shortness of breath and wheezing. Take mucinex as prescribed for the treatment of your nasal congestion. You may also use nasal saline spray for symptomatic relief. You may take ibuprofen as directed for pain relief. Get plenty of rest and fluids. Return or follow up with your primary care doctor if your symptoms worsen or do not resolve within 10 days. - Billing Disposition and Condition Condition: STABLE Disposition: Home
[2019-06-15] MEDS ORDERED: Albuterol 2.5 MG/3 ML NEB.SOL* (0.083%) INH ONE (10:46)
[2019-06-15 11:08] LABS: Influenza A Molecular NEGATIVE (Negative); Influenza B Molecular NEGATIVE (Negative)
== END 2019-06-15 11:30 | disposition home or self-care (01) ==
LOC: UCEAST 09:48
DX: J06.9 Acute upper respiratory infection, unspecified (principal); J40 Bronchitis, not specified as acute or chronic; R06.02 Shortness of breath; E11.9 Type 2 diabetes mellitus without complications; I10 Essential (primary) hypertension; F17.210 Nicotine dependence, cigarettes, uncomplicated; Z88.0 Allergy status to penicillin
CPT/HCPCS: 99212; G0463